=== PATIENT | female | born 1950 | race Caucasian/White ===

== ENCOUNTER → 2018-08-29 | Outpatient (CLI) | payer MEDICARE ==
--- NOTE | 2018-08-29 15:42 | MR ---
EXAMINATION TYPE: MR brain wo con DATE OF EXAM: 08/29/2018 COMPARISON: NONE HISTORY: Abnormality of gait / Memory loss TECHNIQUE: Multiplanar, multisequence images of the brain and brainstem is performed without intravenous contras t.. FINDINGS: Diffusion weighted images demonstrate no evidence of a recent infarct or other diffusion ab normality. Although there is diffusely symmetric sulcal prominence the degree of ventricular promine nce is slightly advanced in relation to the degree of sulcal prominence/cerebral atrophy. The cerebra l aqueduct, third ventricle, and fourth ventricle are widely patent. Evaluation for transependymal ed mt is limited as there is T2 hyperintense periventricular white matter change. Other scattered areas of T2/FLAIR hyperintensity are seen within the subcortical white matter overall mild burden given th e patient's age. There is no extra-axial fluid collection or significant white matter signal abnormal ity. The ventricular system and cisternal spaces are normal in size and appearance. The brain volum e is age appropriate. Midline structures demonstrate normal morphology. The craniocervical junction appears within normal limits. Susceptibility artifact is seen of the teeth possibly from dental fillings limiting evaluatio n of the adjacent structures. Scant mucosal thickening is seen within the ethmoid sinuses. Remaining visualized paranasal sinuses and mastoid air cells are well aerated. The dural venous sinuses appear patent. The globes are intact. IMPRESSION: 1. Ventricular dilatation slightly advanced in comparison to the degree of sulcal prominence and cere bral atrophy. Therefore consideration for normal pressure hydrocephalus or nonobstructing hydrocephal us should be given. 2. Mild burden nonspecific white matter change, likely on the basis of chronic microangiopathy. 3. No evidence of acute territorial infarct.
== END | disposition home or self-care (01) ==
LOC: RADMRIMAIN 13:24
PROVIDERS: ATTEND Psychiatry & Neurology Neurology
DX: G31.9 Degenerative disease of nervous system, unspecified (principal); R90.89 Other abnormal findings on diagnostic imaging of central nervous system; Z88.0 Allergy status to penicillin
CPT/HCPCS: 70551

== ENCOUNTER → 2018-09-04 | Outpatient (CLI) | payer MEDICARE ==
--- NOTE | 2018-09-04 15:04 | MR ---
EXAMINATION TYPE: MR lumbar spine wo con DATE OF EXAM: 09/04/2018 COMPARISON: None HISTORY: Low back pain and abnormal gait TECHNIQUE: Multiplanar, multisequence images of the lumbar spine were acquired. FINDINGS: There is an S-shaped scoliotic curvature of the thoracolumbar spine on the localizer images . The vertebral body heights are maintained however there is grade 1 anterolisthesis of L4 on L5 and L5 on S1. There is a diffusely heterogenous bone marrow signal throughout well-circumscribed T1/T2 hy perintense vertebral body hemangioma seen of L2. Modic type II endplate changes are noted of the uppe r and lower lumbar spine. Conus medullaris is unremarkable terminating at L1-L2. T12-L1: There is a small central disc herniation superimposed upon a broad-based disc bulge with liga mentum flavum buckling on the left and mild facet arthropathy creating moderate left neural foraminal narrowing. Right neural foramen and subsequently visualize given the rotatory scoliosis but appears grossly patent. No spinal canal stenosis. L1-L2: There is a bilobed broad-based disc bulge that in combination with facet arthropathy creates m oderate bilateral neural foraminal narrowing. No spinal canal stenosis. L2-L3: There is extensive facet arthropathy narrowing and ligamentum flavum buckling narrowing the sp inal canal. There is also a broad-based disc bulge. Overall there is mild bilateral neural foraminal narrowing and mild spinal canal stenosis. L3-L4: There is a large broad-based disc bulge and right lateral disc herniation creating moderate to severe right neural foraminal narrowing and moderate left neural foraminal narrowing. Extensive face t arthropathy and ligamentum flavum buckling create mild spinal canal stenosis. L4-L5: There is a broad-based disc bulge and facet arthropathy as well as disc uncovering creating mi ld bilateral neural foraminal narrowing and mild spinal canal stenosis. L5-S1: There is a broad-based disc bulge, disc uncovering and a small central disc herniation/protrus ion. Facet arthropathy is also seen resulting in mild left neural foraminal narrowing and moderate to severe right neural foraminal narrowing as well as mild spinal canal stenosis. IMPRESSION: 1. Rotatory S-shaped scoliotic curvature of the thoracolumbar spine making accurate evaluation of the neural foramen difficult, however there is multilevel neural foraminal narrowing as described above most severe at L5-S1 on the right with impingement of the exiting L5 nerve root. 2. Right lateral disc herniation at L3-L4 creating moderate to severe right neural foraminal narrowin g. 3. Small central disc herniation at L5-S1 creating mild spinal canal stenosis. 4. Extensive multilevel degenerative disc disease creating multiple levels of spinal canal stenosis f rom L2 through S1, mild in degree. 5. Diffusely heterogenous bone marrow signal. Correlate with CBC to assess for anemia or myeloprolife rative disorders.
== END | disposition home or self-care (01) ==
LOC: RADMRIMAIN 13:25
PROVIDERS: ATTEND Psychiatry & Neurology Neurology
DX: M99.73 Connective tissue and disc stenosis of intervertebral foramina of lumbar region (principal); M99.74 Connective tissue and disc stenosis of intervertebral foramina of sacral region; M48.061 Spinal stenosis, lumbar region without neurogenic claudication; M48.07 Spinal stenosis, lumbosacral region; M51.27 Other intervertebral disc displacement, lumbosacral region; M51.26 Other intervertebral disc displacement, lumbar region; M51.36 Other intervertebral disc degeneration, lumbar region; M41.85 Other forms of scoliosis, thoracolumbar region; Z88.0 Allergy status to penicillin
CPT/HCPCS: 72148

== ENCOUNTER → 2018-09-24 | Outpatient (CLI) | payer MEDICARE ==
[2018-09-24 12:06] LABS: Basophils % (A) 1 %; Eosinophils # (A) 0.2 k/uL (0-0.7); Eosinophils % (A) 4 %; HCT 41.7 % (34.0-46.0); Lymphocytes % (A) 19 %; MCH 29.4 pg (25.0-35.0); MCHC 31.2 g/dL (31.0-37.0); MCV 94.1 fL (80.0-100.0); Mean Platelet Volume 7.1; Monocytes # (A) 0.3 k/uL (0-1.0); Monocytes % (A) 5 %; Neutrophils # (A) 3.7 k/uL (1.3-7.7); Neutrophils % (A) 69 %; Platelet Count 284 k/uL (150-450); RBC 4.43 m/uL (3.80-5.40); RDW 13.2 % (11.5-15.5); WBC 5.4 k/uL (3.8-10.6)
== END ==
LOC: LABWHC1 10:50
PROVIDERS: ATTEND Nurse Practitioner Acute Care
DX: Z51.81 Encounter for therapeutic drug level monitoring (principal)
CPT/HCPCS: 36415; 85025

== ENCOUNTER 2019-02-26 07:26 | Observation (INO) | payer MEDICARE ==
--- NOTE | 2019-02-26 07:47 | ED ---
General Adult HPI - General Stated complaint: Chest pain Time Seen by Provider: 02/26/19 07:29 Source: patient, EMS, RN notes reviewed, old records reviewed Mode of arrival: EMS Limitations: no limitations - History of Present Illness Initial comments: 68-year-old female history of CAD status post 5 vessel bypass approximately 15 years ago presents for evaluation of chest pain. Patient is brought in by EMS approximately 2 and half hours after the onset of her pain. She was noted to be bradycardic in the 40s according to EMS. This was recorded as sinus bradycardia, she was given 0.5 mg atropine and had taken nitroglycerin and aspirin at home prior to arrival. Her symptoms are resolved at the time my evaluation. She has no residual chest pain. No dysuria. She denies any diaphoresis, dyspnea or radiating pain associated with her central chest pain. Patient has no history of recurrent chest pain status post bypass. - Related Data Allergies Allergy/AdvReac Type Severity Reaction Status Date / Time hydromorphone [From Dilaudid] Allergy Anaphylaxis Verified 02/26/19 07:51 Review of Systems ROS Statement: Those systems with pertinent positive or pertinent negative responses have been documented in the HPI. ROS Other: All systems not noted in ROS Statement are negative. Past Medical History Past Medical History: Chest Pain / Angina, Myocardial Infarction ([place]) History of Any Multi-Drug Resistant Organisms: None Reported Past Surgical History: Coronary Bypass/CABG Past Psychological History: No Psychological Hx Reported Smoking Status: Never smoker Past Alcohol Use History: None Reported Past Drug Use History: None Reported General Exam Limitations: no limitations General appearance: alert, in no apparent distress Head exam: Present: atraumatic, normocephalic Eye exam: Present: normal appearance, PERRL ENT exam: Present: normal exam Neck exam: Present: normal inspection. Absent: tenderness, meningismus Respiratory exam: Present: normal lung sounds bilaterally. Absent: respiratory distress, wheezes Cardiovascular Exam: Present: regular rate, normal rhythm, systolic murmur GI/Abdominal exam: Present: soft. Absent: distended, tenderness, guarding Extremities exam: Present: normal inspection, normal capillary refill. Absent: pedal edema, calf tenderness Neurological exam: Present: alert, oriented X3, CN II-XII intact. Absent: motor sensory deficit Psychiatric exam: Present: normal affect, normal mood Skin exam: Present: warm, dry, intact. 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 She does remain bradycardic, this is sinus bradycardia rate 45-48. EKG Findings - EKG Comments: EKG Findings:: EKG: Sinus bradycardia, no ST segment elevation, rate of 52, FL interval 178, QRS duration 78, QTC 470 Medical Decision Making - Medical Decision Making 68-year-old female presenting with an episode of chest pain. This was resolved with nitroglycerin given by EMS as well as atropine given by EMS. Laboratory studies reveal normal CBC, normal CMP, initial troponin is negative. Chest x-ray negative for acute cardiopulmonary disease. Patient will be admitted for telemetry, serial troponins, cardiology consultation. Metoprolol will be held at this time secondary to bradycardia. Patient chest pain-free while in the emergency department. Diagnosis: Chest pain, bradycardia - Lab Data Result diagrams: 02/26/19 07:36 02/26/19 07:36 Lab Results 02/26/19 02/26/19 02/26/19 Range/Units 07:36 07:36 07:36 WBC 3.8 (3.8-10.6) k/uL RBC 4.30 (3.80-5.40) m/uL Hgb 12.4 (11.4-16.0) gm/dL Hct 38.1 (34.0-46.0) % MCV 88.6 (80.0-100.0) fL MCH 28.9 (25.0-35.0) pg MCHC 32.7 (31.0-37.0) g/dL RDW 14.3 (11.5-15.5) % Plt Count 154 (150-450) k/uL Neutrophils % 46 % Lymphocytes % 38 % Monocytes % 7 % Eosinophils % 6 % Basophils % 1 % Neutrophils # 1.7 (1.3-7.7) k/uL Lymphocytes # 1.4 (1.0-4.8) k/uL Monocytes # 0.3 (0-1.0) k/uL Eosinophils # 0.2 (0-0.7) k/uL Basophils # 0.0 (0-0.2) k/uL PT 9.8 (9.0-12.0) sec INR 0.9 (<1.2) APTT 23.1 (22.0-30.0) sec Sodium 140 (137-145) mmol/L Potassium 4.6 (3.5-5.1) mmol/L Chloride 108 H (98-107) mmol/L Carbon Dioxide 28 (22-30) mmol/L Anion Gap 4 mmol/L BUN 19 H (7-17) mg/dL Creatinine 1.11 H (0.52-1.04) mg/dL Est GFR (CKD-EPI)AfAm 58 (>60 ml/min/1.73 sqM) Est GFR (CKD-EPI)NonAf 51 (>60 ml/min/1.73 sqM) Glucose 84 (74-99) mg/dL Calcium 8.8 (8.4-10.2) mg/dL Magnesium 2.0 (1.6-2.3) mg/dL Total Bilirubin 0.8 (0.2-1.3) mg/dL AST 41 H (14-36) U/L ALT 54 H (9-52) U/L Alkaline Phosphatase 53 (38-126) U/L Troponin I (0.000-0.034) ng/mL Total Protein 5.4 L (6.3-8.2) g/dL Albumin 3.2 L (3.5-5.0) g/dL 02/26/19 Range/Units 07:36 WBC (3.8-10.6) k/uL RBC (3.80-5.40) m/uL Hgb (11.4-16.0) gm/dL Hct (34.0-46.0) % MCV (80.0-100.0) fL MCH (25.0-35.0) pg MCHC (31.0-37.0) g/dL RDW (11.5-15.5) % Plt Count (150-450) k/uL Neutrophils % % Lymphocytes % % Monocytes % % Eosinophils % % Basophils % % Neutrophils # (1.3-7.7) k/uL Lymphocytes # (1.0-4.8) k/uL Monocytes # (0-1.0) k/uL Eosinophils # (0-0.7) k/uL Basophils # (0-0.2) k/uL PT (9.0-12.0) sec INR (<1.2) APTT (22.0-30.0) sec Sodium (137-145) mmol/L Potassium (3.5-5.1) mmol/L Chloride (98-107) mmol/L Carbon Dioxide (22-30) mmol/L Anion Gap mmol/L BUN (7-17) mg/dL Creatinine (0.52-1.04) mg/dL Est GFR (CKD-EPI)AfAm (>60 ml/min/1.73 sqM) Est GFR (CKD-EPI)NonAf (>60 ml/min/1.73 sqM) Glucose (74-99) mg/dL Calcium (8.4-10.2) mg/dL Magnesium (1.6-2.3) mg/dL Total Bilirubin (0.2-1.3) mg/dL AST (14-36) U/L ALT (9-52) U/L Alkaline Phosphatase (38-126) U/L Troponin I <0.012 (0.000-0.034) ng/mL Total Protein (6.3-8.2) g/dL Albumin (3.5-5.0) g/dL Disposition Clinical Impression: Chest pain, Bradycardia Disposition: ADMITTED IP TO THIS [facility] Condition: Stable Is patient prescribed a controlled substance at d/c from ED?: No Referrals: Tomás Preciado MD [Primary Care Provider] - 1-2 days Decision to Admit Reason: Admit from EC Decision Date: 02/26/19 Decision Time: 09:02
[2019-02-26 07:55] LABS: Basophils % (A) 1 %; Eosinophils # (A) 0.2 k/uL (0-0.7); Eosinophils % (A) 6 %; HCT 38.1 % (34.0-46.0); HGB 12.4 gm/dL (11.4-16.0); Lymphocytes # (A) 1.4 k/uL (1.0-4.8); Lymphocytes % (A) 38 %; MCH 28.9 pg (25.0-35.0); MCHC 32.7 g/dL (31.0-37.0); MCV 88.6 fL (80.0-100.0); Mean Platelet Volume 7.9; Monocytes # (A) 0.3 k/uL (0-1.0); Monocytes % (A) 7 %; Neutrophils # (A) 1.7 k/uL (1.3-7.7); Neutrophils % (A) 46 %; Platelet Count 154 k/uL (150-450); RDW 14.3 % (11.5-15.5); WBC 3.8 k/uL (3.8-10.6)
[2019-02-26 08:04] LABS: Albumin 3.2 g/dL (3.5-5.0); Calcium 8.8 mg/dL (8.4-10.2); Potassium 4.6 mmol/L (3.5-5.1); Total Bilirubin 0.8 mg/dL (0.2-1.3); Total Protein 5.4 g/dL (6.3-8.2)
[2019-02-26 08:06] LABS: INR 0.9 (<1.2); Partial Thromboplastin Time 23.1 sec (22.0-30.0); Prothrombin Time 9.8 sec (9.0-12.0)
--- NOTE | 2019-02-26 08:07 | XR ---
EXAMINATION TYPE: XR chest 2V DATE OF EXAM: 02/26/2019 COMPARISON: Chest x-ray June 16, 2011. HISTORY: Chest pain. TECHNIQUE: Frontal and lateral views of the chest are obtained. FINDINGS: Overlying EKG leads are seen. Post CABG changes with mediastinal clips and sternal wires is redemonstrated. There is chronic parenchymal change without suspicious focal air space opacity, ple ural effusion, or pneumothorax seen. The cardiac silhouette size is mildly enlarged on current study . Underlying scoliosis is present centered in the lumbar spine. IMPRESSION: Chronic parenchymal changes and cardiomegaly without acute pulmonary process.
[2019-02-26] MEDS ORDERED: ACETAMINOPHEN TAB 325 MG TAB PO PRN (08:56)
[2019-02-26] MEDS ORDERED: NALOXONE 0.4 MG/ML 1 ML VIAL IV PRN (08:56)
[2019-02-26] MEDS: SODIUM CHLORIDE 0.9% 1,000 ML IV SCH ×2 (09:07→20:54)
[2019-02-26] MEDS: ASPIRIN 325 MG TAB PO SCH (09:07)
--- NOTE | 2019-02-26 15:54 | P.CRDCN ---
History of Present Illness History of present illness: This is a 68-year-old female past medical history significant for coronary artery disease status post 5-vessel bypass grafting, hypertension and dyslipidemia. She follows in the office with Dr. Dickinson. We have been asked to see her in consultation for symptoms of chest pain. She states she woke up around 5 AM this morning with a heavy sharp pain in the left precordial region. This occurred while she was laying in bed. She got up and took one sublingual nitroglycerin which did decrease the intensity of the chest discomfort however shortly thereafter about 10 minutes after taking the first one the pain started coming back. She decided to call EMS and come in for further evaluation. EMS found her to have for profound bradycardia with a heart rate of 41 per the patient. She was given 0.5 mg of atropine. The EMS reports and telemetry tracings are not in the patient's chart currently unavailable. She is seen and examined resting comfortably in bed in no acute distress. Her chest discomfort has subsided. EKG reveals sinus bradycardia heart rate of 50 to with nonspecific T-wave flattening in the lateral leads. Chest x-ray reveals chronic parenchymal changes without any acute cardiopulmonary process. Laboratory data reviewed, WBC 3.8, hemoglobin 12.4, platelets 154, sodium 140, potassium 4.6, creatinine 1.11 with a GFR 51, magnesium 2.0, AST 41, ALT 54, car diac enzymes negative 2. Current cardiac medications include atorvastatin 80 mg daily, Lopressor 25 mg twice a day, losartan 50 mg daily. Most recent stress test performed in the office February 2017 with a Lexiscan stress test was negative for reversible cardiac ischemia. Most recent echocardiogram obtained in the office 2012 reveals preserved left ventricular systolic function with ejection fraction 55%, mild mitral regurgitation and mild pulmonary hypertension. At the time of my exam: CONSTITUTIONAL: Denies fever. Denies chills. EYES: Denies blurred vision. Denies vision changes. Denies eye pain. EARS, NOSE, MOUTH & THROAT: Denies headache. Denies sore throat. Denies ear pain. CARDIOVASCULAR: Denies chest pain. Denies shortness of breath. Denies orthopnea. Denies PND. Denies palpitations. RESPIRATORY: Denies cough. GASTROINTESTINAL: Denies abdominal pain. Denies diarrhea. Denies constipation. Denies nausea. Denies vomiting. MUSCULOSKELETAL: Denies myalgias. INTEGUMENTARY: Denies pruitis. Denies rash. NEUROLOGIC: Denies numbness. Denies tingling. Denies weakness. PSYCHIATRIC: Denies anxiety. Denies depression. ENDOCRINE: Denies fatigue. Denies weight change. Denies polydipsia. Denies polyurina. GENITOURINARY: Denies burning, hematuria or urgency with micturation. HEMATOLOGIC: Denies history of anemia. Denies bleeding. Blood pressure 150/72 heart rates 52 afebrile maintaining oxygen saturation on room air GENERAL: This is a 68-year-old female in no apparent distress at the time of my examination. HEENT: Head is atraumatic, normocephalic. Pupils are equal, round. Sclerae anicteric. Conjunctivae are clear. Mucous membranes of the mouth are moist. Neck is supple. There is no jugular venous distention. No carotid bruit is heard. LUNGS: Clear to auscultation no wheezes, rales or rhonchi. No chest wall tenderness is noted on palpation or with deep breathing. HEART: Regular rate and rhythm with systolic ejection murmur at the base, no rubs or gallops. S1 and S2 heard. ABDOMEN: Soft, nontender. Bowel sounds are heard. No organomegaly noted. EXTREMITIES: No evidence of peripheral edema and no calf tenderness noted. VASCULAR: Radial and dorsalis pedis pulses palpated, no evidence of clubbing. NEUROLOGIC: Patient is awake, alert and oriented x3. ASSESSMENT Bradycardia per EMS Chest pain History of coronary artery disease status post 5 vessel bypass grafting 15 years ago Hypertension Dyslipidemia PLAN Request records of EMS of bradycardia. Obtain 2D echocardiogram and doppler study to assess cardiac structure and function. Check TSH. Hold lopressor and continue telemetry monitoring for ongoing bradycardia. Continue to obtain serial cardiac enzymes to rule out an acute event. NPO after midnight for further cardiac testing. Further recommendations to follow. Thank you kindly for this consultation. Nurse Practitioner note has been reviewed, I agree with a documented findings and plan of care. Patient was seen and examined. Past Medical History Past Medical History: Chest Pain / Angina, Hyperlipidemia, Hypertension, Myocardial Infarction ([place]), Sleep Apnea/CPAP/BIPAP, Thyroid Disorder Additional Past Medical History / Comment(s): Short-term memory loss Last Myocardial Infarction Date:: 2014 History of Any Multi-Drug Resistant Organisms: None Reported Past Surgical History: Coronary Bypass/CABG Additional Past Surgical History / Comment(s): Coronary artery bypass graft 5 vessel 15 years ago, less knee arthroscopically, right shoulder surgery, sleep apnea surgery, hysterectomy for dysfunctional uterine bleeding. Past Anesthesia/Blood Transfusion Reactions: No Reported Reaction Past Psychological History: No Psychological Hx Reported Smoking Status: Never smoker Past Alcohol Use History: None Reported Additional Past Alcohol Use History / Comment(s): The patient is a lifelong nonsmoker. No marijuana, street drug or alcohol use. Patient was at home with her . She does not use walker or cane. No nebulizer oxygen or CPAP. Patient was on CPAP many years ago. Past Drug Use History: None Reported - Past Family History Father Additional Family Medical History / Comment(s): Father at age 80 with history of rectal cancer and coronary artery disease. Mother Additional Family Medical History / Comment(s): Mother at age 71 from scleroderma. Brother(s) Additional Family Medical History / Comment(s): Patient has 2 brothers. One at age 61 from a myocardial infarction. One is alive with no major medical problems. Medications and Allergies Home Medications Medication Instructions Recorded Confirmed Type Atorvastatin [Lipitor] 80 mg PO DAILY 02/26/19 02/26/19 History Donepezil [Aricept] 10 mg PO HS 02/26/19 02/26/19 History Escitalopram [Lexapro] 20 mg PO BID 02/26/19 02/26/19 History Famotidine [Pepcid] 20 mg PO BID 02/26/19 02/26/19 History Levothyroxine Sodium [Synthroid] 75 mcg PO DAILY 02/26/19 02/26/19 History Losartan Potassium [Cozaar] 50 mg PO DAILY 02/26/19 02/26/19 History Metoprolol Tartrate [Lopressor] 25 mg PO BID 02/26/19 02/26/19 History Nitroglycerin Sl Tabs [Nitrostat] 0.4 mg SUBLINGUAL Q5M PRN 02/26/19 02/26/19 History buPROPion HCL [Wellbutrin XL] 300 mg PO DAILY 02/26/19 02/26/19 History busPIRone HCL 15 mg PO TID 02/26/19 02/26/19 History clonazePAM [KlonoPIN] 1 mg PO HS 02/26/19 02/26/19 History Allergies Allergy/AdvReac Type Severity Reaction Status Date / Time hydromorphone [From Dilaudid] Allergy Anaphylaxis Verified 02/26/19 09:05 Physical Exam Vitals: Vital Signs Temp Pulse Pulse Pulse Resp BP BP 02/26/19 11:59 97.4 F L 52 L 16 150/72 02/26/19 11:30 47 L 16 140/66 02/26/19 11:00 49 L 18 129/69 02/26/19 10:30 47 L 19 146/79 02/26/19 10:00 53 L 16 123/72 02/26/19 09:30 49 L 16 02/26/19 09:20 49 L 13 02/26/19 09:10 46 L 15 02/26/19 09:00 49 L 16 02/26/19 08:50 53 L 16 02/26/19 08:10 48 L 20 02/26/19 07:38 53 L 02/26/19 07:28 97.6 F 53 L 16 164/71 Pulse Ox 02/26/19 11:59 99 02/26/19 11:30 96 02/26/19 11:00 97 02/26/19 10:30 97 02/26/19 10:00 97 02/26/19 09:30 96 02/26/19 09:20 98 02/26/19 09:10 97 02/26/19 09:00 98 02/26/19 08:50 93 L 02/26/19 08:10 99 02/26/19 07:38 02/26/19 07:28 96 Intake and Output 02/25/19 02/26/19 02/26/19 22:59 06:59 14:59 Intake Total 236 Balance 236 Intake: Oral 236 Other: Voiding Method Toilet Weight 52.617 kg Results 02/26/19 07:36 02/26/19 07:36 Cardiac Enzymes 02/26/19 02/26/19 02/26/19 Range/Units 07:36 07:36 13:11 AST 41 H (14-36) U/L Troponin I <0.012 <0.012 (0.000-0.034) ng/mL Coagulation 02/26/19 Range/Units 07:36 PT 9.8 (9.0-12.0) sec APTT 23.1 (22.0-30.0) sec CBC 02/26/19 Range/Units 07:36 WBC 3.8 (3.8-10.6) k/uL RBC 4.30 (3.80-5.40) m/uL Hgb 12.4 (11.4-16.0) gm/dL Hct 38.1 (34.0-46.0) % Plt Count 154 (150-450) k/uL Comprehensive Metabolic Panel 02/26/19 Range/Units 07:36 Sodium 140 (137-145) mmol/L Potassium 4.6 (3.5-5.1) mmol/L Chloride 108 H (98-107) mmol/L Carbon Dioxide 28 (22-30) mmol/L BUN 19 H (7-17) mg/dL Creatinine 1.11 H (0.52-1.04) mg/dL Glucose 84 (74-99) mg/dL Calcium 8.8 (8.4-10.2) mg/dL AST 41 H (14-36) U/L ALT 54 H (9-52) U/L Alkaline Phosphatase 53 (38-126) U/L Total Protein 5.4 L (6.3-8.2) g/dL Albumin 3.2 L (3.5-5.0) g/dL Current Medications Generic Name Dose Route Start Last Admin Trade Name Freq PRN Reason Stop Dose Admin Acetaminophen 650 mg 02/26/19 08:56 Tylenol Tab PO Q6HR PRN Mild Pain or Fever > 100.5 Aspirin 325 mg 02/26/19 09:00 02/26/19 09:07 Aspirin PO Not Given DAILY STEVIE Sodium Chloride 1,000 mls @ 75 mls/hr 02/26/19 08:45 02/26/19 09:07 Saline 0.9% IV 75 mls/hr .[id number] STEVIE Administration Naloxone HCl 0.2 mg 02/26/19 08:56 Narcan IV Q2M PRN Opioid Reversal Intake and Output 02/25/19 02/26/19 02/26/19 22:59 06:59 14:59 Intake Total 236 Balance 236 Intake: Oral 236 Other: Voiding Method Toilet Weight 52.617 kg Patient Weight 02/27/19 06:59 Weight 52.617 kg 02/26/19 07:36 02/26/19 07:36
[2019-02-26] MEDS: LOSARTAN 50 MG TAB PO SCH (16:20)
[2019-02-26] MEDS: ATORVASTATIN 80 MG TAB PO SCH (16:20)
--- NOTE | 2019-02-26 19:18 | ECHOF ---
Referral Reason: MEASUREMENTS -------- HEIGHT: 149.9 cm WEIGHT: 52.6 kg BP: 150/72 RVIDd: 2.1 cm (< 3.3) IVSd: 0.9 cm (0.6 - 1.1) LVIDd: 3.5 cm (3.9 - 5.3) LVPWd: 0.9 cm (0.6 - 1.1) IVSs: 1.1 cm LVIDs: 2.4 cm LVPWs: 1.2 cm LAESV Index (A-L): 22.46 ml/m Ao Diam: 2.6 cm (2.0 - 3.7) AV Cusp: 1.1 cm (1.5 - 2.6) LA Diam: 3.4 cm (2.7 - 3.8) MV EXCURSION: 15.098 mm (> 18.000) MV EF SLOPE: 105 mm/s (70 - 150) EPSS: 0.2 cm MV E Roberto: 0.72 m/s MV DecT: 214 ms MV A Roberto: 0.64 m/s MV E/A Ratio: 1.13 RAP: 5.00 mmHg RVSP: 26.90 mmHg FINDINGS -------- Resting bradycardia (HR<60bpm). This was a technically adequate study. The left ventricular size is normal. Left ventricular wall thickness is normal. Overall left vent ricular systolic function is normal with, an EF between 55 - 60 %. The right ventricle is normal in size and function. Normal LA size by volume 22+/-6 ml/m2. The right atrium is normal in size. Aortic valve is trileaflet and is mildly thickened. There is no evidence of aortic regurgitation. There is no evidence of aortic stenosis. The mitral valve leaflets are mildly thickened. There is trace to mild mitral regurgitation. Trace tricuspid regurgitation present. Right ventricular systolic pressure is normal at < 35 mmHg. There is no evidence of pulmonary hypertension. Trace/mild (physiologic) pulmonic regurgitation. The aortic root size is normal. Normal inferior vena cava with normal inspiratory collapse consistent with estimated right atrial pre ssure of 5 mmHg. There is no pericardial effusion. CONCLUSIONS -------- 1. Resting bradycardia (HR<60bpm). 2. This was a technically adequate study. 3. The left ventricular size is normal. 4. Left ventricular wall thickness is normal. 5. Overall left ventricular systolic function is normal with, an EF between 55 - 60 %. 6. Normal LA size by volume 22+/-6 ml/m2. 7. Aortic valve is trileaflet and is mildly thickened. 8. The mitral valve leaflets are mildly thickened. 9. There is trace to mild mitral regurgitation. 10. Trace tricuspid regurgitation present. 11. Right ventricular systolic pressure is normal at < 35 mmHg. 12. There is no evidence of pulmonary hypertension. 13. Trace/mild (physiologic) pulmonic regurgitation. 14. The aortic root size is normal. 15. There is no pericardial effusion. [employer] ENGINEER: Kevin Carrillo RDCS
[2019-02-27] MEDS ORDERED: CAFFEINE CITRATE 60 MG/3 ML VIAL IV PRN (07:54)
[2019-02-27] MEDS ORDERED: AMINOPHYLLINE 500 MG/20 ML VIAL IV PRN (07:54)
[2019-02-27] MEDS ORDERED: REGADENOSON 0.4 MG/5 ML SYRINGE IV ONE (07:54)
[2019-02-27] MEDS ORDERED: DIPYRIDAMOLE IV ONE (08:00)
[2019-02-27] MEDS ORDERED: SODIUM CHLORIDE 0.9% IV ONE (08:00)
--- NOTE | 2019-02-27 11:02 | P.STRESS ---
- Stress Test Note Stress Test Results/Findings: Exam Performed: NM stress persantine cardiolite Exam Date: 02/27/19 Reason for Exam: CP Height: 4 ft 11 in Weight: 52.617 kg Protocol: PERSANTINE CARDIOLITE STRESS Stage: NA Duration of Exercise: NA Resting Heart Rate: 64 Resting Blood Pressure: 156/82 Maximum Achieved Heart Rate: 75 Maximum Achieved Blood Pressure: 162/66 85% PMHR: NA 100% PMHR: NA METS: NA Technologist Comment: Stress Test Results/Findings: This is a 68-year-old female with history of hypertension, family history of isc hemic heart disease being evaluated for symptoms of chest pain. Patient also has history of previous bypass surgery. Stress data: Baseline EKG showed sinus rhythm with normal DE interval and QRS duration. Blood pressure at rest is 156/82 with pulse rate of 64. A standard dose of Persantine was infused. EKGs taken during and after infusion did not reveal any significant changes from baseline. Final impression #1. Negative Lexiscan stress test #2 ,Report on the nuclear images to be given by the radiologist
[2019-02-27] MEDS: LOSARTAN 50 MG TAB PO SCH (11:19)
[2019-02-27] MEDS: ATORVASTATIN 80 MG TAB PO SCH (11:19)
[2019-02-27] MEDS: ASPIRIN 325 MG TAB PO SCH (11:19)
[2019-02-27 11:54] VITALS: BP 165/77; PULSE 58; RESP 18; TEMP 98.3
--- NOTE | 2019-02-27 12:01 | P.HPIM ---
History of Present Illness H&P Date: 02/26/19 Chief Complaint: Chest pain This is a 68-year-old female patient of Dr. Heriberto Preciado and Dr. Dickinson with past medical history of myocardial infarction with CABG 5 vessels 15 years ago, hypothyroidism, hypertension, hyperlipidemia, short-term memory loss, depression. Patient states that she had chest pain develop at 5 AM this morning on the left side of her chest that went over to the right side. She denies any lightheadedness, dizziness, cough, sweats, nausea or vomiting. She states she took one nitroglycerin at home but did not make any difference and she took a second one that did help. At the time of this evaluation, chest pain is completely resolved. She is complaining of feeling tired. CBC was within normal limits. BUN 19 and creatinine 1.11. Troponin negative. Patient will be placed on observation unit and consult consult with cardiology. Review of Systems All systems: negative Constitutional: Reports fatigue, Denies anorexia, Denies chills, Denies fever, Denies lethargy, Denies malaise, Denies poor appetite, Denies weakness Eyes: denies blurred vision, denies pain Ears, nose, mouth and throat: Denies dysphagia, Denies headache, Denies mouth pain, Denies nasal congestion, Denies nasal discharge, Denies sore throat, D enies vertigo Cardiovascular: Reports chest pain, Denies decreased exercise tolerance, Denies dyspnea on exertion, Denies edema, Denies leg edema, Denies lightheadedness, Denies palpitations, Denies shortness of breath, Denies syncope Respiratory: Denies cough, Denies cough with sputum, Denies dyspnea, Denies excessive sputum, Denies hemoptysis, Denies home oxygen, Denies wheezing Gastrointestinal: Denies abdominal pain, Denies diarrhea, Denies loss of appetite, Denies nausea, Denies vomiting Genitourinary: Denies dysuria, Denies hematuria, Denies urgency, Denies urinary frequency Musculoskeletal: Denies frequent falls, Denies gait dysfunction, Denies muscle weakness, Denies myalgias Integumentary: Denies pruritus, Denies rash, Denies wounds Neurological: Reports memory loss, Denies numbness, Denies vertigo, Denies weakness Psychiatric: Denies anxiety, Denies depression Endocrine: Denies fatigue, Denies weight change Past Medical History Past Medical History: Chest Pain / Angina, Hyperlipidemia, Hypertension, Myocardial Infarction ([place]), Sleep Apnea/CPAP/BIPAP, Thyroid Disorder Additional Past Medical History / Comment(s): Short-term memory loss History of Any Multi-Drug Resistant Organisms: None Reported Past Surgical History: Coronary Bypass/CABG Additional Past Surgical History / Comment(s): Coronary artery bypass graft 5 vessel 15 years ago, less knee arthroscopically, right shoulder surgery, sleep apnea surgery, hysterectomy for dysfunctional uterine bleeding. Past Psychological History: No Psychological Hx Reported Smoking Status: Never smoker Past Alcohol Use History: None Reported Additional Past Alcohol Use History / Comment(s): The patient is a lifelong nonsmoker. No marijuana, street drug or alcohol use. Patient was at home with her . She does not use walker or cane. No nebulizer oxygen or CPAP. Patient was on CPAP many years ago. Past Drug Use History: None Reported - Past Family History Father Additional Family Medical History / Comment(s): Father at age 80 with history of rectal cancer and coronary artery disease. Mother Additional Family Medical History / Comment(s): Mother at age 71 from scleroderma. Brother(s) Additional Family Medical History / Comment(s): Patient has 2 brothers. One at age 61 from a myocardial infarction. One is alive with no major medical problems. Medications and Allergies Home Medications Medication Instructions Recorded Confirmed Type Atorvastatin [Lipitor] 80 mg PO DAILY 02/26/19 02/26/19 History Donepezil [Aricept] 10 mg PO HS 02/26/19 02/26/19 History Escitalopram [Lexapro] 20 mg PO BID 02/26/19 02/26/19 History Famotidine [Pepcid] 20 mg PO BID 02/26/19 02/26/19 History Levothyroxine Sodium [Synthroid] 75 mcg PO DAILY 02/26/19 02/26/19 History Losartan Potassium [Cozaar] 50 mg PO DAILY 02/26/19 02/26/19 History Metoprolol Tartrate [Lopressor] 25 mg PO BID 02/26/19 02/26/19 History Nitroglycerin Sl Tabs [Nitrostat] 0.4 mg SUBLINGUAL Q5M PRN 02/26/19 02/26/19 History buPROPion HCL [Wellbutrin XL] 300 mg PO DAILY 02/26/19 02/26/19 History busPIRone HCL 15 mg PO TID 02/26/19 02/26/19 History clonazePAM [KlonoPIN] 1 mg PO HS 02/26/19 02/26/19 History Allergies Allergy/AdvReac Type Severity Reaction Status Date / Time hydromorphone [From Dilaudid] Allergy Anaphylaxis Verified 02/26/19 09:05 Physical Exam Vitals: Vital Signs Temp Pulse Pulse Resp BP Pulse Ox 02/26/19 09:30 49 L 16 96 02/26/19 09:20 49 L 13 98 02/26/19 09:10 46 L 15 97 02/26/19 09:00 49 L 16 98 02/26/19 08:50 53 L 16 93 L 02/26/19 08:10 48 L 20 99 02/26/19 07:38 53 L 02/26/19 07:28 97.6 F 53 L 16 164/71 96 Intake and Output 02/25/19 02/26/19 02/26/19 22:59 06:59 14:59 Other: Weight 52.617 kg Gen: This is a 68-year-old female. She is resting in the ER stretcher and appears to be comfortable and in no acute distress. HEENT: Head is atraumatic, normocephalic. Pupils equal, round. Sclerae is anicteric. NECK: Supple. No JVD. No lymphadenopathy. No thyromegaly. LUNGS: Clear to auscultation. No wheezes or rhonchi. No intercostal retractions. HEART: Regular rate and rhythm. Systolic murmur. ABDOMEN: Soft. Bowel sounds are present. No masses. No tenderness. EXTREMITIES: No pedal edema. No calf tenderness. Dorsalis pedis +2 bilaterally. NEUROLOGICAL: Patient is awake, alert and oriented x3. Cranial nerves 2 through 12 are grossly intact. Noted short-term memory deficits. Results CBC & Chem 7: 02/26/19 07:36 02/26/19 07:36 Labs: Abnormal Lab Results - Last 24 Hours (Table) 02/26/19 Range/Units 07:36 Chloride 108 H (98-107) mmol/L BUN 19 H (7-17) mg/dL Creatinine 1.11 H (0.52-1.04) mg/dL AST 41 H (14-36) U/L ALT 54 H (9-52) U/L Total Protein 5.4 L (6.3-8.2) g/dL Albumin 3.2 L (3.5-5.0) g/dL Assessment and Plan Plan: 1. Chest pain. Patient placed in the observation unit. Cardiology consult. Serial troponins. 2. History of coronary artery disease with five-vessel CABG. Continue aspirin, Lipitor, losartan, Lipitor 80 mg daily. 3. Hypertension. Continue losartan 50 mg daily, Lopressor 25 mg twice daily. 4. Hyperlipidemia. Continue Lipitor. 5. Hypothyroidism. Continue levothyroxine 75 g daily. 6. Short-term memory deficit. Continue Aricept 10 mg at bedtime. 7. Recurrent depression and generalized anxiety disorder. Continue Lexapro 20 mg twice daily, clonazepam 1 mg at bedtime, Wellbutrin 300 mg daily. 8. DVT prophylaxis. Early ambulation. Patient will be placed on the observation unit. Discharge plan: Return home Impression and plan of care have been directed as dictated by the signing phys ician. Izzy Rossi nurse practitioner acting as scribe for signing physician.
--- NOTE | 2019-02-27 12:16 | NM ---
EXAMINATION TYPE: NM stress persantine cardiolit DATE OF EXAM: 02/27/2019 COMPARISON: NONE HISTORY: Chest pain TECHNIQUE: After the intravenous administration of 9.63 mCi Tc 99m Sestamibi - Cardiolite resting SP ECT images acquired 45 minutes post injection. The patient received 30 mg Persantine, 25.9 mCi Tc 99m Sestamibi - Stress images obtained 30 minutes post injection FINDINGS: Review of stress and rest SPECT images demonstrates small area of reversibility involving the septum which likely is artifactual but should be correlated clinically. Gated analysis shows normal wall mo tion with an estimated left ventricular ejection fraction of 67 %. IMPRESSION: 1. There is a small area of stress-induced reversibility involving the septum which likely is artifac tual but should be correlated clinically to exclude stress-induced ischemia.
--- NOTE | 2019-02-27 14:32 | P.DS ---
Providers Date of admission: 02/26/19 08:56 Expected date of discharge: 02/27/19 Attending physician: Cielo Elizabeth Consults: 02/26/19 08:57 Consult Physician Routine Consulting Provider: Santiago Dickinson Consult Reason/Comments: CP, bradycardic Do you want consulting provider notified?: Yes Primary care physician: [facility] Course: This is a 68-year-old female patient of Dr. Heriberto Preciado and Dr. Dickinson with past medical history of myocardial infarction with CABG 5 vessels 15 years ago, hypothyroidism, hypertension, hyperlipidemia, short-term memory loss, depression. Patient states that she had chest pain develop at 5 AM this morning on the left side of her chest that went over to the right side. She denies any lightheadedness, dizziness, cough, sweats, nausea or vomiting. She states she took one nitroglycerin at home but did not make any difference and she took a second one that did help. At the time of this evaluation, chest pain is compl etely resolved. She is complaining of feeling tired. CBC was within normal limits. BUN 19 and creatinine 1.11. Troponin negative. Patient will be placed on observation unit and consult consult with cardiology. 02/26: patient has been seen by cardiology. Persantine stress test was done today. Nuclear portion found a small area of stress-induced reversibility involving the septum which likely is artifactual but should be correlated clinically to exclude stress-induced ischemia. Dr. Maki recommends following up in the office with Dr. Esquivel to further evaluate this. Patient will be discharged home today in stable condition. No medication changes have been made. Discharge diagnoses: 1. Chest pain. 2. History of coronary artery disease with five-vessel CABG. 3. Hypertension. 4. Hyperlipidemia. 5. Hypothyroidism. 6. Short-term memory deficit. 7. Recurrent depression and generalized anxiety disorder. Discharge plan: Return home Impression and plan of care have been directed as dictated by the signing physician. Izzy Rossi nurse practitioner acting as scribe for signing physician. Patient Condition at Discharge: Good Plan - Discharge Summary New Discharge Prescriptions: Continue buPROPion HCL [Wellbutrin XL] 300 mg PO DAILY Nitroglycerin Sl Tabs [Nitrostat] 0.4 mg SUBLINGUAL Q5M PRN PRN Reason: Angina Losartan Potassium [Cozaar] 50 mg PO DAILY Levothyroxine Sodium [Synthroid] 75 mcg PO DAILY clonazePAM [KlonoPIN] 1 mg PO HS Metoprolol Tartrate [Lopressor] 25 mg PO BID Famotidine [Pepcid] 20 mg PO BID Donepezil [Aricept] 10 mg PO HS Atorvastatin [Lipitor] 80 mg PO DAILY busPIRone HCL 15 mg PO TID Escitalopram [Lexapro] 20 mg PO BID Discharge Medication List Atorvastatin [Lipitor] 80 mg PO DAILY 02/26/19 [History] Donepezil [Aricept] 10 mg PO HS 02/26/19 [History] Escitalopram [Lexapro] 20 mg PO BID 02/26/19 [History] Famotidine [Pepcid] 20 mg PO BID 02/26/19 [History] Levothyroxine Sodium [Synthroid] 75 mcg PO DAILY 02/26/19 [History] Losartan Potassium [Cozaar] 50 mg PO DAILY 02/26/19 [History] Metoprolol Tartrate [Lopressor] 25 mg PO BID 02/26/19 [History] Nitroglycerin Sl Tabs [Nitrostat] 0.4 mg SUBLINGUAL Q5M PRN 02/26/19 [History] buPROPion HCL [Wellbutrin XL] 300 mg PO DAILY 02/26/19 [History] busPIRone HCL 15 mg PO TID 02/26/19 [History] clonazePAM [KlonoPIN] 1 mg PO HS 02/26/19 [History] Follow up Appointment(s)/Referral(s): Santiago Dickinson MD [STAFF PHYSICIAN] - 1 Week (Office will call with a appointment) Tomás Preciado MD [Primary Care Provider] - 1 Week Discharge Disposition: HOME SELF-CARE
[2019-02-27] MEDS: SODIUM CHLORIDE 0.9% 1,000 ML IV SCH (14:38)
--- NOTE | 2019-03-04 08:52 | EST ---
Stress Test Results/Findings: Exam Performed: NM stress persantine cardiolite Exam Date: 02/27/19 Reason for Exam: CP Height: 4 ft 11 in Weight: 52.617 kg Protocol: PERSANTINE CARDIOLITE STRESS Stage: NA Duration of Exercise: NA Resting Heart Rate: 64 Resting Blood Pressure: 156/82 Maximum Achieved Heart Rate: 75 Maximum Achieved Blood Pressure: 162/66 85% PMHR: NA 100% PMHR: NA METS: NA Technologist Comment: Stress Test Results/Findings: This is a 68-year-old female with history of hypertension, family history of ischemic heart disease being evaluated for symptoms of chest pain. Patient also has history of previous bypass surgery. Stress data: Baseline EKG showed sinus rhythm with normal CT interval and QRS duration. Blood pressure at rest is 156/82 with pulse rate of 64. A standard dose of Persantine was infused. EKGs taken during and after infusion did not reveal any significant changes from baseline. Final impression #1. Negative Lexiscan stress test #2 ,Report on the nuclear images to be given by the radiologist STEVE
== END 2019-02-27 15:00 | disposition home or self-care (01) ==
LOC: EC 07:26 → 1SOBS 08:56
PROVIDERS: ADMIT Internal Medicine; ATTEND Internal Medicine
DX: R07.2 Precordial pain (principal); R00.1 Bradycardia, unspecified; R53.83 Other fatigue; I10 Essential (primary) hypertension; E78.5 Hyperlipidemia, unspecified; E03.9 Hypothyroidism, unspecified; R41.3 Other amnesia; F41.1 Generalized anxiety disorder; F33.9 Major depressive disorder, recurrent, unspecified; I25.10 Atherosclerotic heart disease of native coronary artery without angina pectoris; I25.2 Old myocardial infarction; G47.30 Sleep apnea, unspecified; Z99.89 Dependence on other enabling machines and devices; Z79.899 Other long term (current) drug therapy; Z95.1 Presence of aortocoronary bypass graft; Z79.890 Hormone replacement therapy; Z88.5 Allergy status to narcotic agent; Z80.0 Family history of malignant neoplasm of digestive organs; Z84.0 Family history of diseases of the skin and subcutaneous tissue
CPT/HCPCS: 96360; 96361 ×2; 99285; 36415; 93005; 93017; 93306; 80053; 84443; 83735; 84484; 85025; 85610; 85730; 71046; 78452; G0378 ×2; A9500

== ENCOUNTER → 2019-04-07 | Outpatient (CLI) | payer MEDICARE ==
[2019-04-07 12:38] LABS: Appearance,Urine Clear (Clear); Bilirubin,Urine Negative (Negative); Blood,Urine Negative (Negative); Color,Urine Yellow; Glucose,Urine (UA) Negative (Negative); Ketones,Urine Negative (Negative); Leukocyte Esterase,Urine Negative (Negative); Nitrite,Urine Negative (Negative); PH, Urine 5.5 (5.0-8.0); Protein,Urine Negative (Negative); Specific Gravity,Urine 1.012 (1.001-1.035); Urobilinogen,Urine <2.0 mg/dL (<2.0)
[2019-04-07 12:42] LABS: Basophils % (A) 1 %; Eosinophils # (A) 0.2 k/uL (0-0.7); Eosinophils % (A) 5 %; HCT 41.6 % (34.0-46.0); HGB 13.4 gm/dL (11.4-16.0); Lymphocytes # (A) 1.3 k/uL (1.0-4.8); Lymphocytes % (A) 25 %; MCH 29.8 pg (25.0-35.0); MCHC 32.3 g/dL (31.0-37.0); MCV 92.2 fL (80.0-100.0); Mean Platelet Volume 7.5; Monocytes # (A) 0.2 k/uL (0-1.0); Monocytes % (A) 4 %; Neutrophils # (A) 3.2 k/uL (1.3-7.7); Neutrophils % (A) 63 %; Platelet Count 172 k/uL (150-450); RBC 4.52 m/uL (3.80-5.40); RDW 14.3 % (11.5-15.5)
[2019-04-07 12:48] LABS: INR 0.9 (<1.2); Partial Thromboplastin Time 23.2 sec (22.0-30.0); Prothrombin Time 9.9 sec (9.0-12.0)
--- NOTE | 2019-04-07 13:17 | XR ---
EXAMINATION TYPE: XR chest 2V DATE OF EXAM: 04/07/2019 COMPARISON: Prior chest x-ray 02/26/2019 HISTORY: Normal pressure hydrocephalus, preop TECHNIQUE: Frontal and lateral views of the chest are obtained. FINDINGS: Patient is post median sternotomy. Marked scoliosis is again seen. There is no evident pne umonia, pneumothorax, or pleural effusion. Cardiac mediastinal silhouette, pulmonary vascularity and jake within normal limits accounting for technique. Superior sternal wire is fractured as on prior ex am. Prominent lung volume may be indicative of underlying COPD. The aorta is dense. IMPRESSION: No acute cardiopulmonary process.
[2019-04-07 20:16] LABS: Albumin 4.2 g/dL (3.80-4.90); Albumin/Globulin Ratio 2.63 (1.60-3.17); Anion Gap 10.4 mmol/L (4.00-12.00); Calcium 9.2 mg/dL (8.7-10.3); Carbon Dioxide 27.6 mmol/L (21.6-31.8); Globulin 1.6 g/dL (1.6-3.3); Potassium 4.5 mmol/L (3.5-5.5); Total Bilirubin 0.9 mg/dL (0.3-1.2); Total Protein 5.8 g/dL (6.2-8.2)
== END | disposition home or self-care (01) ==
LOC: LABWHC1 11:51
PROVIDERS: ATTEND Neurological Surgery
DX: Z01.818 Encounter for other preprocedural examination (principal); Z01.812 Encounter for preprocedural laboratory examination; G91.2 (Idiopathic) normal pressure hydrocephalus
CPT/HCPCS: 36415; 71046; 80053; 81003; 85025; 85610; 85730; 87070; 93005

== ENCOUNTER 2019-05-23 11:24 | Emergency (ER) | payer MEDICARE ==
[2019-05-23 11:41] VITALS: RESP 18
--- NOTE | 2019-05-23 11:55 | ED ---
General Adult HPI - General Chief complaint: Fall Stated complaint: Fall Time Seen by Provider: 05/23/19 11:30 Source: patient, EMS, RN notes reviewed Mode of arrival: EMS Limitations: no limitations - History of Present Illness Initial comments: 68-year-old female with a past medical history of chest pain, hyperlipidemia, hypertension, cardial infarction, thyroid disorder, NPH with shunt placement presents to the emergency department for a chief complaint of head injury. Patient states she was getting out of the shower and was moving a chair when she slipped and fell hitting her head on a tile. No loss of consciousness. No blood thinners. Denies any other injuries. Does admit to right shoulder pain but states that this is chronic and she had surgery several years ago. No new pain.Patient has no other complaints at this time including shortness of breath, chest pain, abdominal pain, nausea or vomiting, headache, or visual changes. - Related Data Home Medications Medication Instructions Recorded Confirmed Atorvastatin [Lipitor] 80 mg PO HS 02/26/19 05/23/19 Donepezil [Aricept] 10 mg PO HS 02/26/19 05/23/19 Escitalopram [Lexapro] 20 mg PO BID 02/26/19 05/23/19 Levothyroxine Sodium [Synthroid] 75 mcg PO DAILY 02/26/19 05/23/19 Losartan Potassium [Cozaar] 50 mg PO DAILY 02/26/19 05/23/19 buPROPion HCL [Wellbutrin XL] 300 mg PO DAILY 02/26/19 05/23/19 busPIRone HCL 15 mg PO TID 02/26/19 05/23/19 clonazePAM [KlonoPIN] 1 mg PO HS 02/26/19 05/23/19 Metoprolol Tartrate [Lopressor] 12.5 mg PO BID 05/23/19 05/23/19 Omeprazole 20 mg PO DAILY 05/23/19 05/23/19 Allergies Allergy/AdvReac Type Severity Reaction Status Date / Time hydromorphone [From Dilaudid] Allergy Anaphylaxis Verified 05/23/19 12:25 Review of Systems ROS Statement: Those systems with pertinent positive or pertinent negative responses have been documented in the HPI. ROS Other: All systems not noted in ROS Statement are negative. Past Medical History Past Medical History: Chest Pain / Angina, Hyperlipidemia, Hypertension, Myocardial Infarction ([place]), Sleep Apnea/CPAP/BIPAP, Thyroid Disorder Additional Past Medical History / Comment(s): Short-term memory loss Last Myocardial Infarction Date:: 2014 History of Any Multi-Drug Resistant Organisms: None Reported Past Surgical History: Coronary Bypass/CABG Additional Past Surgical History / Comment(s): Coronary artery bypass graft 5 vessel 15 years ago, less knee arthroscopically, right shoulder surgery, sleep apnea surgery, hysterectomy for dysfunctional uterine bleeding. Past Anesthesia/Blood Transfusion Reactions: No Reported Reaction Past Psychological History: Anxiety Smoking Status: Never smoker Past Alcohol Use History: None Reported Past Drug Use History: None Reported - Past Family History Father Additional Family Medical History / Comment(s): Father at age 80 with history of rectal cancer and coronary artery disease. Mother Additional Family Medical History / Comment(s): Mother at age 71 from scleroderma. Brother(s) Additional Family Medical History / Comment(s): Patient has 2 brothers. One at age 61 from a myocardial infarction. One is alive with no major medical problems. General Exam Limitations: no limitations General appearance: alert, in no apparent distress Head exam: Present: atraumatic, normocephalic, normal inspection Eye exam: Present: normal appearance, PERRL, EOMI. Absent: scleral icterus, conjunctival injection, periorbital swelling ENT exam: Present: normal exam, normal oropharynx, mucous membranes moist, TM's normal bilaterally, normal external ear exam Neck exam: Present: normal inspection. Absent: tenderness, meningismus, lymphadenopathy Respiratory exam: Present: normal lung sounds bilaterally. Absent: respiratory distress, wheezes, rales, rhonchi, stridor Cardiovascular Exam: Present: regular rate, normal rhythm, normal heart sounds. Absent: systolic murmur, diastolic murmur, rubs, gallop, clicks GI/Abdominal exam: Present: soft, normal bowel sounds. Absent: distended, tenderness, guarding, rebound, rigid Extremities exam: Present: full ROM (Full range of motion of upper extremities bilaterally as well as lower extremities, no evidence of trauma or ecchymosis on any extremities. However patient does have some tenderness to the left humerus as well as some tenderness to the right shoulder. Radial pulse 2+ in upper extremities bilaterally.) Back exam: Absent: CVA tenderness (R), CVA tenderness (L), vertebral tenderness (no thoracic or lumbar spine tenderness) Neurological exam: Present: alert, oriented X3, CN II-XII intact, other (GCS 15) Psychiatric exam: Present: normal affect, normal mood Course Vital Signs 05/23/19 11:31 Temperature 98.2 F Pulse Rate 63 Respiratory 18 Rate Blood Pressure 151/78 O2 Sat by Pulse 96 Oximetry Medical Decision Making - Medical Decision Making 68-year-old female with a past medical history of chest pain hyperlipidemia hypertension and myocardial infarction, thyroid disorder, NPH with shunt placement 04/22/2019 presents for headache injury. Patient slipped and fell hitting her head in the shower. No dizziness preceding this fall. Purely mechanical. Vitals are stable.CT brain shows no acute cranial abnormality. There is mild chronic white matter ischemic change. There is minimal prominence of the lateral ventricles that may reflect atrophic change or may reflect shunt malfunction. This was compared to previous MRI, ventricles are similar size. Patient is not having any headache or vomiting, clinically does not correlate with shunt malfunction. CT C-spine shows no acute osseous lesion. Moderate degenerative change. X-ray of the right shoulder shows no acute osseous lesion. X-ray of the left humerus shows no acute osseous lesion. This x-ray shows no acute intrathoracic abnormality. At this time patient very anxious for discharge. Patient will be discharged home. Recommended to return if she has any worsening symptoms. Disposition Clinical Impression: Fall, Head injury Disposition: HOME SELF-CARE Condition: Good Instructions (If sedation given, give patient instructions): Head Injury (ED) Additional Instructions: Please follow up with primary care in 1-2 days. Return here to the emergency department if you develop headaches vomiting or any other symptoms. Is patient prescribed a controlled substance at d/c from ED?: No Referrals: Tomás Preciado MD [Primary Care Provider] - 1-2 days Time of Disposition: 14:22
--- NOTE | 2019-05-23 13:30 | CT ---
EXAMINATION TYPE: CT brain yves pope DATE OF EXAM: 05/23/2019 COMPARISON: NONE HISTORY: fall CT DLP: 1161.5 mGycm Automated exposure control for dose reduction was used. TECHNIQUE: CT scan of the head and cervical spine are performed without contrast. FINDINGS: BRAIN: There is a ventriculoperitoneal shunt in place via a right parieto-occipital approach. Its tip is near the third ventricle. There is minimal prominence of the lateral ventricles. This may be atro phic change. Shunt minor malfunction is not excluded. There is some periventricular white matter luce ncy, compatible with chronic white matter ischemic change. There is no focal lesion, mass effect or m idline shift identified. I do not see evidence of intracranial blood. Visualized portions of the paranasal sinuses and mastoids are clear. IMPRESSION: 1. NO ACUTE INTRACRANIAL ABNORMALITY. 2. MILD, CHRONIC WHITE MATTER ISCHEMIC CHANGE. 3. MILD PROMINENCE OF THE VENTRICLES MAY REFLECT ATROPHIC CHANGE OR MAY REFLECT SHUNT MALFUNCTION. P LEASE CORRELATE CLINICALLY. CERVICAL SPINE: Visualized portions of the lungs are clear. Prevertebral soft tissues are normal. Vertebral body height and alignment are maintained. Atlantoaxial relationships are normal. There is diffuse degenerative disc disease most marked at C5-6 and C6-7. There is marked uncovertebra l joint disease present at these levels. There is facet arthropathy on the left at C2-3 and C3-4 as w ell as C4-5. This hypertrophic spondylosis present posteriorly at C4-5, C5-6 and C6-7. No definite pr otrusion is seen. No fractures identified. There has been a midline sternotomy. IMPRESSION: 1. NO ACUTE OSSEOUS LESION. 2. MODERATE DEGENERATIVE CHANGE.
--- NOTE | 2019-05-23 13:57 | XR ---
EXAMINATION TYPE: XR chest 2V DATE OF EXAM: 05/23/2019 HISTORY: Pain. REFERENCE: Previous study dated 04/07/2019. FINDINGS: There has been a midline sternotomy. There is COPY CHIEF shunt tubing projecting over the right femi st. There is a moderate S-shaped scoliosis convex to the left in the thoracic region and to the right in the lumbar region. The lungs are clear. Pleural space are clear. The heart is not enlarged. IMPRESSION: NO ACTIVE INTRATHORACIC DISEASE.
--- NOTE | 2019-05-23 13:58 | XR ---
EXAMINATION TYPE: XR shoulder complete RT , 3 VIEWS DATE OF EXAM ORDERED: 05/23/2019 HISTORY: Pain. COMPARISON: None. FINDINGS: No fracture, dislocation or other acute osseous lesion is seen. There is deviation tubing projecting over the right chest. There has been a midline sternotomy. IMPRESSION: NO ACUTE OSSEOUS LESION.
--- NOTE | 2019-05-23 14:07 | XR ---
EXAMINATION TYPE: XR humerus LT , 3 VIEWS DATE OF EXAM ORDERED: 05/23/2019 HISTORY: Pain. COMPARISON: None. FINDINGS: No long bone fracture is seen. There are vascular clips in the forearm. There is degenerat sunday change in the left AC joint. IMPRESSION: NO ACUTE OSSEOUS LESION.
[2019-05-23 14:40] VITALS: BP 157/86; PULSE 65; TEMP 98.3
== END 2019-05-23 14:40 | disposition home or self-care (01) ==
LOC: EC 11:24
DX: S09.90XA Unspecified injury of head, initial encounter (principal); E78.5 Hyperlipidemia, unspecified; I10 Essential (primary) hypertension; I25.2 Old myocardial infarction; E07.9 Disorder of thyroid, unspecified; G47.30 Sleep apnea, unspecified; F41.9 Anxiety disorder, unspecified; Z79.890 Hormone replacement therapy; Z79.899 Other long term (current) drug therapy; Z88.5 Allergy status to narcotic agent; Z95.1 Presence of aortocoronary bypass graft; M50.322 Other cervical disc degeneration at C5-C6 level; M47.812 Spondylosis without myelopathy or radiculopathy, cervical region; W18.2XXA Fall in (into) shower or empty bathtub, initial encounter; Y93.E1 Activity, personal bathing and showering; Y92.002 Bathroom of unspecified non-institutional (private) residence as the place of occurrence of the external cause
CPT/HCPCS: 70450; 71046; 72125; 99284

== ENCOUNTER 2019-06-22 11:12 | Emergency (ER) | payer MEDICARE ==
[2019-06-22 11:40] VITALS: RESP 18
[2019-06-22] MEDS ORDERED: SODIUM CHLORIDE 0.9% 500 ML 500 ML IV ONE (11:48)
--- NOTE | 2019-06-22 12:05 | ED ---
Altered Mental Status HPI - General Chief Complaint: Altered Mental Status Stated Complaint: Confusion, Tremors Time Seen by Provider: 06/22/19 11:47 Source: patient, family, EMS Mode of arrival: EMS Limitations: altered mental status - History of Present Illness Initial Comments: 68-year-old female presenting with altered mental status. Patient's daughter at bedside assisting with history. Patient states she's felt confused for the last 3 days. Patient's daughter states she's been a and O 2 and she is normally a and O 4. Patient's also been complaining of burning with urination. 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 They have not been able to follow up with the physician from [facility] since then secondary to the patient's 's medical conditions. She is not complaining of worsening headaches she denies any fevers at home. She denies any chest pain, shortness of breath, nausea/vomiting/diarrhea. Denies other symptoms. Patient does have a history of Alzheimers disease. She lives alone currently. - Related Data Home Medications Medication Instructions Recorded Confirmed Atorvastatin [Lipitor] 80 mg PO HS 02/26/19 06/22/19 Donepezil [Aricept] 10 mg PO HS 02/26/19 06/22/19 Escitalopram [Lexapro] 20 mg PO BID 02/26/19 06/22/19 Levothyroxine Sodium [Synthroid] 75 mcg PO DAILY 02/26/19 06/22/19 Losartan Potassium [Cozaar] 50 mg PO DAILY 02/26/19 06/22/19 buPROPion HCL [Wellbutrin XL] 300 mg PO DAILY 02/26/19 06/22/19 busPIRone HCL 15 mg PO TID 02/26/19 06/22/19 clonazePAM [KlonoPIN] 1 mg PO HS 02/26/19 06/22/19 Famotidine [Pepcid] 20 mg PO BID 06/22/19 06/22/19 Metoprolol Tartrate [Lopressor] 25 mg PO BID 06/22/19 06/22/19 Allergies Allergy/AdvReac Type Severity Reaction Status Date / Time hydromorphone [From Dilaudid] Allergy Anaphylaxis Verified 06/22/19 11:35 Review of Systems ROS Statement: Those systems with pertinent positive or pertinent negative responses have been documented in the HPI. Review of Systems Constitutional: Denies fever, chills Eyes: Denies change in vision, Denies pain Ears, nose, mouth, throat: Denies headaches, Denies sore throat Cardiovascular: Denies chest pain. Denies palpitations Respiratory: Denies shortness of breath, Denies cough Gastrointestinal: Denies abdominal pain. Denies nausea, vomiting, diarrhea. Genitourinary: Denies hematuria, Positive dysuria Musculoskeletal: Denies pain, Denies swelling Integumentary: Denies rash Neurological: Denies headache, focal weakness, focal numbness. Positive confusion Psychiatric: Denies anxiety, Denies depression Hematologic/Lymphatic: Denies easy bleeding or bruising ROS Other: All systems not noted in ROS Statement are negative. Past Medical History Past Medical History: Chest Pain / Angina, Hyperlipidemia, Hypertension, Myocardial Infarction ([place]), Sleep Apnea/CPAP/BIPAP, Thyroid Disorder Additional Past Medical History / Comment(s): Short-term memory loss Last Myocardial Infarction Date:: 2014 History of Any Multi-Drug Resistant Organisms: None Reported Past Surgical History: Coronary Bypass/CABG Additional Past Surgical History / Comment(s): Coronary artery bypass graft 5 vessel 15 years ago, less knee arthroscopically, right shoulder surgery, sleep apnea surgery, hysterectomy for dysfunctional uterine bleeding. NPH- shunt placed March 2019, Alzheimersue Past Anesthesia/Blood Transfusion Reactions: No Reported Reaction Past Psychological History: Anxiety, Depression Smoking Status: Never smoker Past Alcohol Use History: None Reported Past Drug Use History: None Reported - Past Family History Father Additional Family Medical History / Comment(s): Father at age 80 with history of rectal cancer and coronary artery disease. Mother Additional Family Medical History / Comment(s): Mother at age 71 from scleroderma. Brother(s) Additional Family Medical History / Comment(s): Patient has 2 brothers. One at age 61 from a myocardial infarction. One is alive with no major medical problems. General Exam - General Exam Comments Initial Comments: General: Awake, alert, No acute Distress HENT: Normocephalic. Atraumatic Eyes: PERRL. EOMI. No scleral icterus. No injected conjunctiva Neck: Full ROM Chest/Lungs: Clear to auscultation bilaterally. No wheezing, rhonchi, or rales Cardiac: Regular rate, rhythm. No murmurs or rubs Abdomen/GI: Soft, nontender, nondistended. No rebound, guarding, or rigidity. Musculoskeletal: Full ROM Skin: Warm, dry, intact Neurologic: A/Ox3, no weakness, no sensory deficit, no abnormal gait, no coordination deficit. Generalized tremor. Limitations: altered mental status Course Vital Signs 06/22/19 11:32 Temperature 99.6 F Pulse Rate 63 Respiratory 18 Rate Blood Pressure 134/68 O2 Sat by Pulse 98 Oximetry Medical Decision Making - Medical Decision Making 68-year-old female presenting with confusion and dysuria. On initial exam the patient is awake, alert, no acute distress. VSS. She is AO 3 for me. She has no neurologic deficit on exam. Her laboratory workup was negative for acute process. Her CT showed no change. Unlikely her shunt is malfunctioning with the CT results, so a shuntogram was not done. No indication to transfer the patient back to [facility]. The patient has no history of fever and her WBC is 10.9. Unlikely to be a shunt infection. She has no focal neurologic deficit to suggest stroke. Patient does have a history of Alzheimers, and it is possible these episodes could be related to disease progression. She has had no episodes of confusion in the department. The patient's tremors have resolved. I discussed this in length with the patient and her daughter. Daughter states she is concerned it could be due to the amount of stress they are under from the pat layla's being very ill recently. The patient lives alone, but the daughter is agreeable to staying with the patient for the next few days to make sure her status does not worsen. They are agreeable to making appointments to follow up with the neurosurgeon and her PCP. No further emergent workup indicated. The patient was given return to ED instructions. They were instructed to follow up with their primary care provider. Stable for discharge at this time. - Lab Data Result diagrams: 06/22/19 11:30 06/22/19 11:30 Lab Results 06/22/19 06/22/19 06/22/19 Range/Units 11:30 11:30 11:30 WBC 10.9 H (3.8-10.6) k/uL RBC 4.73 (3.80-5.40) m/uL Hgb 14.2 (11.4-16.0) gm/dL Hct 43.4 (34.0-46.0) % MCV 91.7 (80.0-100.0) fL MCH 30.0 (25.0-35.0) pg MCHC 32.7 (31.0-37.0) g/dL RDW 14.4 (11.5-15.5) % Plt Count 145 L (150-450) k/uL Neutrophils % 85 % Lymphocytes % 9 % Monocytes % 5 % Eosinophils % 0 % Basophils % 0 % Neutrophils # 9.2 H (1.3-7.7) k/uL Lymphocytes # 1.0 (1.0-4.8) k/uL Monocytes # 0.5 (0-1.0) k/uL Eosinophils # 0.1 (0-0.7) k/uL Basophils # 0.0 (0-0.2) k/uL PT 10.2 (9.0-12.0) sec INR 0.9 (<1.2) APTT 19.1 L (22.0-30.0) sec Sodium 135 L (137-145) mmol/L Potassium 3.8 (3.5-5.1) mmol/L Chloride 101 (98-107) mmol/L Carbon Dioxide 23 (22-30) mmol/L Anion Gap 11 mmol/L BUN 20 H (7-17) mg/dL Creatinine 1.09 H (0.52-1.04) mg/dL Est GFR (CKD-EPI)AfAm 60 (>60 ml/min/1.73 sqM) Est GFR (CKD-EPI)NonAf 52 (>60 ml/min/1.73 sqM) Glucose 133 H (74-99) mg/dL POC Glucose (mg/dL) (75-99) mg/dL POC Glu [place] [employer]er ID Calcium 8.7 (8.4-10.2) mg/dL Total Bilirubin 0.9 (0.2-1.3) mg/dL AST 40 H (14-36) U/L ALT 31 (9-52) U/L Alkaline Phosphatase 45 (38-126) U/L Troponin I (0.000-0.034) ng/mL NT-Pro-B Natriuret Pep pg/mL Total Protein 6.1 L (6.3-8.2) g/dL Albumin 3.8 (3.5-5.0) g/dL Urine Color Urine Appearance (Clear) Urine pH (5.0-8.0) Ur Specific [place] (1.001-1.035) Urine Protein (Negative) Urine Glucose (UA) (Negative) Urine Ketones (Negative) Urine Blood (Negative) Urine Nitrite (Negative) Urine Bilirubin (Negative) Urine Urobilinogen (<2.0) mg/dL Ur Leukocyte Esterase (Negative) Urine RBC (0-5) /hpf Urine WBC (0-5) /hpf Amorphous Sediment (None) /hpf Urine Bacteria (None) /hpf Urine Mucus (None) /hpf Urine Opiates Screen (NotDetected) Ur Oxycodone Screen (NotDetected) Urine Methadone Screen (NotDetected) Ur Propoxyphene Screen (NotDetected) Ur Barbiturates Screen (NotDetected) U Tricyclic Antidepress (NotDetected) Ur Phencyclidine Scrn (NotDetected) Ur Amphetamines Screen (NotDetected) U Methamphetamines Scrn (NotDetected) U Benzodiazepines Scrn (NotDetected) Urine Cocaine Screen (NotDetected) U Marijuana (THC) Screen (NotDetected) 06/22/19 06/22/19 06/22/19 Range/Units 11:30 11:30 12:00 WBC (3.8-10.6) k/uL RBC (3.80-5.40) m/uL Hgb (11.4-16.0) gm/dL Hct (34.0-46.0) % MCV (80.0-100.0) fL MCH (25.0-35.0) pg MCHC (31.0-37.0) g/dL RDW (11.5-15.5) % Plt Count (150-450) k/uL Neutrophils % % Lymphocytes % % Monocytes % % Eosinophils % % Basophils % % Neutrophils # (1.3-7.7) k/uL Lymphocytes # (1.0-4.8) k/uL Monocytes # (0-1.0) k/uL Eosinophils # (0-0.7) k/uL Basophils # (0-0.2) k/uL PT (9.0-12.0) sec INR (<1.2) APTT (22.0-30.0) sec Sodium (137-145) mmol/L Potassium (3.5-5.1) mmol/L Chloride (98-107) mmol/L Carbon Dioxide (22-30) mmol/L Anion Gap mmol/L BUN (7-17) mg/dL Creatinine (0.52-1.04) mg/dL Est GFR (CKD-EPI)AfAm (>60 ml/min/1.73 sqM) Est GFR (CKD-EPI)NonAf (>60 ml/min/1.73 sqM) Glucose (74-99) mg/dL POC Glucose (mg/dL) 130 H (75-99) mg/dL POC Glu [place] [employer] Work[employer] ID [place] Calcium (8.4-10.2) mg/dL Total Bilirubin (0.2-1.3) mg/dL AST (14-36) U/L ALT (9-52) U/L Alkaline Phosphatase (38-126) U/L Troponin I 0.012 (0.000-0.034) ng/mL NT-Pro-B Natriuret Pep 1340 pg/mL Total Protein (6.3-8.2) g/dL Albumin (3.5-5.0) g/dL Urine Color Urine Appearance (Clear) Urine pH (5.0-8.0) Ur Specific [place] (1.001-1.035) Urine Protein (Negative) Urine Glucose (UA) (Negative) Urine Ketones (Negative) Urine Blood (Negative) Urine Nitrite (Negative) Urine Bilirubin (Negative) Urine Urobilinogen (<2.0) mg/dL Ur Leukocyte Esterase (Negative) Urine RBC (0-5) /hpf Urine WBC (0-5) /hpf Amorphous Sediment (None) /hpf Urine Bacteria (None) /hpf Urine Mucus (None) /hpf Urine Opiates Screen (NotDetected) Ur Oxycodone Screen (NotDetected) Urine Methadone Screen (NotDetected) Ur Propoxyphene Screen (NotDetected) Ur Barbiturates Screen (NotDetected) U Tricyclic Antidepress (NotDetected) Ur Phencyclidine Scrn (NotDetected) Ur Amphetamines Screen (NotDetected) U Methamphetamines Scrn (NotDetected) U Benzodiazepines Scrn (NotDetected) Urine Cocaine Screen (NotDetected) U Marijuana (THC) Screen (NotDetected) 06/22/19 Range/Units 13:27 WBC (3.8-10.6) k/uL RBC (3.80-5.40) m/uL Hgb (11.4-16.0) gm/dL Hct (34.0-46.0) % MCV (80.0-100.0) fL MCH (25.0-35.0) pg MCHC (31.0-37.0) g/dL RDW (11.5-15.5) % Plt Count (150-450) k/uL Neutrophils % % Lymphocytes % % Monocytes % % Eosinophils % % Basophils % % Neutrophils # (1.3-7.7) k/uL Lymphocytes # (1.0-4.8) k/uL Monocytes # (0-1.0) k/uL Eosinophils # (0-0.7) k/uL Basophils # (0-0.2) k/uL PT (9.0-12.0) sec INR (<1.2) APTT (22.0-30.0) sec Sodium (137-145) mmol/L Potassium (3.5-5.1) mmol/L Chloride (98-107) mmol/L Carbon Dioxide (22-30) mmol/L Anion Gap mmol/L BUN (7-17) mg/dL Creatinine (0.52-1.04) mg/dL Est GFR (CKD-EPI)AfAm (>60 ml/min/1.73 sqM) Est GFR (CKD-EPI)NonAf (>60 ml/min/1.73 sqM) Glucose (74-99) mg/dL POC Glucose (mg/dL) (75-99) mg/dL POC Glu [place] [employer] Worker ID Calcium (8.4-10.2) mg/dL Total Bilirubin (0.2-1.3) mg/dL AST (14-36) U/L ALT (9-52) U/L Alkaline Phosphatase (38-126) U/L Troponin I (0.000-0.034) ng/mL NT-Pro-B Natriuret Pep pg/mL Total Protein (6.3-8.2) g/dL Albumin (3.5-5.0) g/dL Urine Color Yellow Urine Appearance Clear (Clear) Urine pH 5.5 (5.0-8.0) Ur Specific [place] 1.021 (1.001-1.035) Urine Protein 1+ H (Negative) Urine Glucose (UA) Negative (Negative) Urine Ketones Trace H (Negative) Urine Blood Small H (Negative) Urine Nitrite Negative (Negative) Urine Bilirubin Negative (Negative) Urine Urobilinogen <2.0 (<2.0) mg/dL Ur Leukocyte Esterase Negative (Negative) Urine RBC 1 (0-5) /hpf Urine WBC 1 (0-5) /hpf Amorphous Sediment Occasional H (None) /hpf Urine Bacteria Rare H (None) /hpf Urine Mucus Rare H (None) /hpf Urine Opiates Screen Not Detected (NotDetected) Ur Oxycodone Screen Not Detected (NotDetected) Urine Methadone Screen Not Detected (NotDetected) Ur Propoxyphene Screen Not Detected (NotDetected) Ur Barbiturates Screen Not Detected (NotDetected) U Tricyclic Antidepress Not Detected (NotDetected) Ur Phencyclidine Scrn Not Detected (NotDetected) Ur Amphetamines Screen Not Detected (NotDetected) U Methamphetamines Scrn Not Detected (NotDetected) U Benzodiazepines Scrn Not Detected (NotDetected) Urine Cocaine Screen Not Detected (NotDetected) U Marijuana (THC) Screen Not Detected (NotDetected) - EKG Data EKG Comments: EKG shows normal sinus rhythm at a rate of [address] segment elevation, depression. No prolonged QT/QTc or PA interval. No dysrythmia noted. Disposition Clinical Impression: Confusion Disposition: HOME SELF-CARE Condition: Good Instructions (If sedation given, give patient instructions): Altered Mental Status (ED) Additional Instructions: Call the neurosurgeon who placed the shunt and make a follow up appointment this week. Call the PCP, as well, and make a follow up appointment. Return to ER if patient has signs of stroke or develops a fever, or constant altered mental status. Is patient prescribed a controlled substance at d/c from ED?: No Referrals: Tomás Preciado MD [Primary Care Provider] - 1-2 days
[2019-06-22 12:11] LABS: Basophils % (A) 0 %; Eosinophils # (A) 0.1 k/uL (0-0.7); Eosinophils % (A) 0 %; HCT 43.4 % (34.0-46.0); HGB 14.2 gm/dL (11.4-16.0); Lymphocytes % (A) 9 %; MCHC 32.7 g/dL (31.0-37.0); MCV 91.7 fL (80.0-100.0); Mean Platelet Volume 8.1; Monocytes # (A) 0.5 k/uL (0-1.0); Monocytes % (A) 5 %; Neutrophils # (A) 9.2 k/uL (1.3-7.7); Neutrophils % (A) 85 %; Platelet Count 145 k/uL (150-450); RBC 4.73 m/uL (3.80-5.40); RDW 14.4 % (11.5-15.5); WBC 10.9 k/uL (3.8-10.6)
[2019-06-22 12:19] LABS: Albumin 3.8 g/dL (3.5-5.0); Calcium 8.7 mg/dL (8.4-10.2); Potassium 3.8 mmol/L (3.5-5.1); Total Bilirubin 0.9 mg/dL (0.2-1.3); Total Protein 6.1 g/dL (6.3-8.2)
[2019-06-22 12:21] LABS: Glucose,Whole Blood 130 mg/dL (75-99)
[2019-06-22 12:35] LABS: INR 0.9 (<1.2); Prothrombin Time 10.2 sec (9.0-12.0)
[2019-06-22 12:47] LABS: Partial Thromboplastin Time 19.1 sec (22.0-30.0)
--- NOTE | 2019-06-22 12:58 | CT ---
EXAMINATION TYPE: CT brain wo con DATE OF EXAM: 06/22/2019 COMPARISON: 05/23/2019 HISTORY: 68-year-old female Weakness and tremors TECHNIQUE: Examination was done in axial plane without intravenous contrast. Coronal and sagittal r econstructions performed. CT DLP: 1129.4 mGycm Automated exposure control for dose reduction was used. FINDINGS: There is no evidence of acute intracranial hemorrhage, acute ischemic changes, mass, mass-effect, or extra-axial fluid collection. There is no effacement of cerebral sulci or basal subarachnoid cister ns. There is no hydrocephalus. There is no midline shift. Sanchez-white matter distinction is preserv ed. Right posterior parietal approach PROFILE TRIMMER shunt catheter with tip in the posterior midline just above the third ventricle. Positioning is unchanged. Ventricular caliber is stable. No hydrocephalus. Paranasal sinuses and mastoid air cells well pneumatized. Orbits and globes are intact. IMPRESSION: No acute intracranial abnormality seen. Stable positioning of the right parietal approach PROFILE TRIMMER shunt ca theter. No hydrocephalus.
--- NOTE | 2019-06-22 12:59 | XR ---
EXAMINATION TYPE: XR chest 2V DATE OF EXAM: 06/22/2019 COMPARISON: Prior chest x-ray 05/23/2019 HISTORY: Altered mental status TECHNIQUE: Frontal and lateral views of the chest are obtained. FINDINGS: Prominent lung volume could be indicative of underlying COPD. Patient is post median sterno олег. Aorta is dense. There is thoracic spondylosis present. Probable ventriculoperitoneal shunt tubi ng is present over the right neck and chest. There is a spinal curvature. There is no focal air space opacity, pleural effusion, or pneumothorax seen. The cardiac silhouette size is within normal limit s. The osseous structures are intact. IMPRESSION: No acute cardiopulmonary process.
[2019-06-22 13:35] LABS: Amorphous Sediment,Urine Occasional /hpf; Appearance,Urine Clear (Clear); Bacteria,Urine Rare /hpf; Bilirubin,Urine Negative (Negative); Blood,Urine Small (Negative); Color,Urine Yellow; Glucose,Urine (UA) Negative (Negative); Ketones,Urine Trace (Negative); Leukocyte Esterase,Urine Negative (Negative); Mucus,Urine Rare /hpf; Nitrite,Urine Negative (Negative); PH, Urine 5.5 (5.0-8.0); Protein,Urine 1+ (Negative); RBC,Urine 1 /hpf (0-5); Specific Gravity,Urine 1.021 (1.001-1.035); Urobilinogen,Urine <2.0 mg/dL (<2.0); WBC,Urine 1 /hpf (0-5)
[2019-06-22 13:54] LABS: Amphetamine Screen,Urine Not Detected (NotDetected); Barbiturate Screen,Urine Not Detected (NotDetected); Benzodiazepines Screen,Urine Not Detected (NotDetected); Cocaine Screen,Urine Not Detected (NotDetected); Methadone Screen, Urine Not Detected (NotDetected); Opiate Screen,Urine Not Detected (NotDetected); Oxycodone Screen, Urine Not Detected (NotDetected); Phencyclidine Screen,Urine Not Detected (NotDetected); Tricyclic Antidepressant,Urine Not Detected (NotDetected); Urn Cannabinoid Scrn Not Detected (NotDetected)
[2019-06-22 14:11] VITALS: BP 153/84; PULSE 66; TEMP 98
== END 2019-06-22 14:11 | disposition home or self-care (01) ==
LOC: EC 11:12
DX: R41.0 Disorientation, unspecified (principal); R30.0 Dysuria; R25.1 Tremor, unspecified; G91.2 (Idiopathic) normal pressure hydrocephalus; G30.9 Alzheimer's disease, unspecified; E78.5 Hyperlipidemia, unspecified; I10 Essential (primary) hypertension; I25.2 Old myocardial infarction; G47.30 Sleep apnea, unspecified; E07.9 Disorder of thyroid, unspecified; F32.9 Major depressive disorder, single episode, unspecified; F41.9 Anxiety disorder, unspecified; Z88.5 Allergy status to narcotic agent; Z79.890 Hormone replacement therapy; Z79.899 Other long term (current) drug therapy; Z98.2 Presence of cerebrospinal fluid drainage device; Z95.1 Presence of aortocoronary bypass graft; Z99.89 Dependence on other enabling machines and devices
CPT/HCPCS: 36415; 70450; 71046; 80053; 80306; 81001; 83880; 84484; 85025; 85610; 85730; 87086; 93005; 96360; 99285

== ENCOUNTER 2019-06-22 22:08 | Inpatient (IN) | payer MEDICARE ==
[2019-06-22] MEDS ORDERED: SODIUM CHLORIDE 0.9% 1,000 ML IV STA ×2 (22:21)
[2019-06-22] MEDS ORDERED: IBUPROFEN 800 MG TAB PO STA (22:39)
[2019-06-22] MEDS ORDERED: ACETAMINOPHEN TAB 500 MG TAB PO STA (22:39)
--- NOTE | 2019-06-22 22:39 | ED ---
Weakness HPI - General Chief complaint: Weakness Stated complaint: Weakness Time Seen by Provider: 06/22/19 22:16 Source: patient, EMS, RN notes reviewed, old records reviewed Mode of arrival: EMS - History of Present Illness Initial comments: This is a 5-year-old female the ER for evaluation of severe weakness. Weakness not been well. Consistent and persistent shaking. Patient was noted a fever here in the ER, patient was seen in ER earlier today for evaluation. Her symp toms this morning. Family states patient's been very tremoring shaking ever since, all day, unable to eat or drink unable to fevers of. Increasing weakness. To the ER, patient was very weak unable to stand up and unable to move and was noted to be very sweaty with a fever. Patient was complaining of some abdominal pain. No nausea vomiting. No chest pain shortness of breath MD Complaint: generalized weakness (Shaking) -: hour(s) Location: generalized Severity: moderate Severity scale (1-10): 6 Consistency: constant Worsens with: none Context: recent illness Associated Symptoms: confusion, fever/chills, loss of appetite, nausea/vomiting - Related Data Home Medications Medication Instructions Recorded Confirmed Atorvastatin [Lipitor] 80 mg PO HS 02/26/19 06/22/19 Donepezil [Aricept] 10 mg PO HS 02/26/19 06/22/19 Escitalopram [Lexapro] 20 mg PO BID 02/26/19 06/22/19 Levothyroxine Sodium [Synthroid] 75 mcg PO DAILY 02/26/19 06/22/19 Losartan Potassium [Cozaar] 50 mg PO DAILY 02/26/19 06/22/19 buPROPion HCL [Wellbutrin XL] 300 mg PO DAILY 02/26/19 06/22/19 busPIRone HCL 15 mg PO TID 02/26/19 06/22/19 clonazePAM [KlonoPIN] 1 mg PO HS 02/26/19 06/22/19 Famotidine [Pepcid] 20 mg PO BID 06/22/19 06/22/19 Metoprolol Tartrate [Lopressor] 25 mg PO BID 06/22/19 06/22/19 Allergies Allergy/AdvReac Type Severity Reaction Status Date / Time hydromorphone [From Dilaudid] Allergy Anaphylaxis Verified 06/22/19 11:35 Review of Systems ROS Statement: Those systems with pertinent positive or pertinent negative responses have been documented in the HPI. ROS Other: All systems not noted in ROS Statement are negative. Past Medical History Past Medical History: Chest Pain / Angina, Hyperlipidemia, Hypertension, Myocardial Infarction ([place]), Sleep Apnea/CPAP/BIPAP, Thyroid Disorder Additional Past Medical History / Comment(s): Short-term memory loss Last Myocardial Infarction Date:: 2014 History of Any Multi-Drug Resistant Organisms: None Reported Past Surgical History: Coronary Bypass/CABG Additional Past Surgical History / Comment(s): Coronary artery bypass graft 5 vessel 15 years ago, less knee arthroscopically, right shoulder surgery, sleep apnea surgery, hysterectomy for dysfunctional uterine bleeding. NPH- shunt placed March 2019, Alzheimers Past Anesthesia/Blood Transfusion Reactions: No Reported Reaction Past Psychological History: Anxiety, Depression Smoking Status: Never smoker Past Alcohol Use History: None Reported Past Drug Use History: None Reported - Past Family History Father Additional Family Medical History / Comment(s): Father at age 80 with history of rectal cancer and coronary artery disease. Mother Additional Family Medical History / Comment(s): Mother at age 71 from scleroderma. Brother(s) Additional Family Medical History / Comment(s): Patient has 2 brothers. One at age 61 from a myocardial infarction. One is alive with no major medical problems. General Exam - General Exam Comments Initial Comments: Patient with tremors General appearance: alert, in no apparent distress Head exam: Present: atraumatic, normocephalic, normal inspection Eye exam: Present: normal appearance, PERRL, EOMI. Absent: scleral icterus, conjunctival injection, periorbital swelling ENT exam: Present: normal exam, mucous membranes moist Neck exam: Present: normal inspection. Absent: tenderness, meningismus, lymphadenopathy Respiratory exam: Present: normal lung sounds bilaterally. Absent: respiratory distress, wheezes, rales, rhonchi, stridor Cardiovascular Exam: Present: normal rhythm, tachycardia, normal heart sounds. Absent: systolic murmur, diastolic murmur, rubs, gallop, clicks GI/Abdominal exam: Present: soft, normal bowel sounds. Absent: distended, tenderness, guarding, rebound, rigid Extremities exam: Present: normal inspection, full ROM, normal capillary refill. Absent: tenderness, pedal edema, joint swelling, calf tenderness Back exam: Present: normal inspection Neurological exam: Present: alert, oriented X3, CN II-XII intact Psychiatric exam: Present: normal affect, normal mood Skin exam: Present: warm, dry, intact, normal color. Absent: rash Course Vital Signs 06/22/19 06/23/19 06/23/19 22:16 01:05 03:40 Temperature 102.6 F H 99.6 F 98 F Pulse Rate 111 H 77 65 Respiratory 20 16 16 Rate Blood Pressure 138/62 128/84 135/69 O2 Sat by Pulse 99 100 98 Oximetry 06/23/19 06/23/19 06/23/19 05:17 07:28 08:20 Temperature 98.6 F 98.6 F Pulse Rate 61 61 Respiratory 16 16 Rate Blood Pressure 118/70 108/61 108/61 O2 Sat by Pulse 97 100 100 Oximetry - Reevaluation(s) Reevaluation #1: 06/23/19 00:55 Medical records reviewed Reevaluation #2: 06/23/19 00:55 Patient has fever control, feeling improved EKG Findings - EKG Comments: EKG Findings:: EKG shows sinus rhythm rate of 79, IN 140, QRS 70, QTc 449 Medical Decision Making - Medical Decision Making 28 female the ER for evaluation patient presents today for evaluation regarding fever weakness dehydration. Fever or now controlled place on antibiotics and admit for evaluation - Lab Data Result diagrams: 06/24/19 07:57 06/25/19 07:44 Lab Results 06/22/19 06/22/19 06/22/19 Range/Units 23:00 23:00 23:00 WBC 8.8 (3.8-10.6) k/uL RBC 4.20 (3.80-5.40) m/uL Hgb 12.2 (11.4-16.0) gm/dL Hct 37.5 (34.0-46.0) % MCV 89.2 (80.0-100.0) fL MCH 29.0 (25.0-35.0) pg MCHC 32.5 (31.0-37.0) g/dL RDW 13.4 (11.5-15.5) % Plt Count 127 L (150-450) k/uL Neutrophils % 75 % Lymphocytes % 16 % Monocytes % 6 % Eosinophils % 0 % Basophils % 0 % Neutrophils # 6.6 (1.3-7.7) k/uL Lymphocytes # 1.4 (1.0-4.8) k/uL Monocytes # 0.5 (0-1.0) k/uL Eosinophils # 0.0 (0-0.7) k/uL Basophils # 0.0 (0-0.2) k/uL PT (9.0-12.0) sec INR (<1.2) APTT (22.0-30.0) sec Sodium 133 L (137-145) mmol/L Potassium 3.7 (3.5-5.1) mmol/L Chloride 102 (98-107) mmol/L Carbon Dioxide 22 (22-30) mmol/L Anion Gap 9 mmol/L BUN 18 H (7-17) mg/dL Creatinine 1.05 H (0.52-1.04) mg/dL Est GFR (CKD-EPI)AfAm 62 (>60 ml/min/1.73 sqM) Est GFR (CKD-EPI)NonAf 54 (>60 ml/min/1.73 sqM) Glucose 109 H (74-99) mg/dL Plasma Lactic Acid Riccardo 1.0 (0.7-2.0) mmol/L Calcium 8.6 (8.4-10.2) mg/dL Phosphorus 2.5 (2.5-4.5) mg/dL Magnesium 1.9 (1.6-2.3) mg/dL Total Bilirubin 0.8 (0.2-1.3) mg/dL AST 61 H (14-36) U/L ALT 32 (9-52) U/L Alkaline Phosphatase 53 (38-126) U/L Creatine Kinase 1965 H* (30-135) U/L Troponin I (0.000-0.034) ng/mL Total Protein 5.8 L (6.3-8.2) g/dL Albumin 3.6 (3.5-5.0) g/dL Lipase (23-300) U/L TSH 2.190 (0.465-4.680) mIU/L Influenza Type A RNA (Not Detectd) Influenza Type B (PCR) (Not Detectd) 06/22/19 06/22/19 06/22/19 Range/Units 23:00 23:00 23:00 WBC (3.8-10.6) k/uL RBC (3.80-5.40) m/uL Hgb (11.4-16.0) gm/dL Hct (34.0-46.0) % MCV (80.0-100.0) fL MCH (25.0-35.0) pg MCHC (31.0-37.0) g/dL RDW (11.5-15.5) % Plt Count (150-450) k/uL Neutrophils % % Lymphocytes % % Monocytes % % Eosinophils % % Basophils % % Neutrophils # (1.3-7.7) k/uL Lymphocytes # (1.0-4.8) k/uL Monocytes # (0-1.0) k/uL Eosinophils # (0-0.7) k/uL Basophils # (0-0.2) k/uL PT 10.3 (9.0-12.0) sec INR 1.0 (<1.2) APTT 22.2 (22.0-30.0) sec Sodium (137-145) mmol/L Potassium (3.5-5.1) mmol/L Chloride (98-107) mmol/L Carbon Dioxide (22-30) mmol/L Anion Gap mmol/L BUN (7-17) mg/dL Creatinine (0.52-1.04) mg/dL Est GFR (CKD-EPI)AfAm (>60 ml/min/1.73 sqM) Est GFR (CKD-EPI)NonAf (>60 ml/min/1.73 sqM) Glucose (74-99) mg/dL Plasma Lactic Acid Riccardo (0.7-2.0) mmol/L Calcium (8.4-10.2) mg/dL Phosphorus (2.5-4.5) mg/dL Magnesium (1.6-2.3) mg/dL Total Bilirubin (0.2-1.3) mg/dL AST (14-36) U/L ALT (9-52) U/L Alkaline Phosphatase (38-126) U/L Creatine Kinase (30-135) U/L Troponin I 0.030 (0.000-0.034) ng/mL Total Protein (6.3-8.2) g/dL Albumin (3.5-5.0) g/dL Lipase (23-300) U/L TSH (0.465-4.680) mIU/L Influenza Type A RNA Not Detected (Not Detectd) Influenza Type B (PCR) Not Detected (Not Detectd) 06/22/19 Range/Units 23:00 WBC (3.8-10.6) k/uL RBC (3.80-5.40) m/uL Hgb (11.4-16.0) gm/dL Hct (34.0-46.0) % MCV (80.0-100.0) fL MCH (25.0-35.0) pg MCHC (31.0-37.0) g/dL RDW (11.5-15.5) % Plt Count (150-450) k/uL Neutrophils % % Lymphocytes % % Monocytes % % Eosinophils % % Basophils % % Neutrophils # (1.3-7.7) k/uL Lymphocytes # (1.0-4.8) k/uL Monocytes # (0-1.0) k/uL Eosinophils # (0-0.7) k/uL Basophils # (0-0.2) k/uL PT (9.0-12.0) sec INR (<1.2) APTT (22.0-30.0) sec Sodium (137-145) mmol/L Potassium (3.5-5.1) mmol/L Chloride (98-107) mmol/L Carbon Dioxide (22-30) mmol/L Anion Gap mmol/L BUN (7-17) mg/dL Creatinine (0.52-1.04) mg/dL Est GFR (CKD-EPI)AfAm (>60 ml/min/1.73 sqM) Est GFR (CKD-EPI)NonAf (>60 ml/min/1.73 sqM) Glucose (74-99) mg/dL Plasma Lactic Acid Riccardo (0.7-2.0) mmol/L Calcium (8.4-10.2) mg/dL Phosphorus (2.5-4.5) mg/dL Magnesium (1.6-2.3) mg/dL Total Bilirubin (0.2-1.3) mg/dL AST (14-36) U/L ALT (9-52) U/L Alkaline Phosphatase (38-126) U/L Creatine Kinase (30-135) U/L Troponin I (0.000-0.034) ng/mL Total Protein (6.3-8.2) g/dL Albumin (3.5-5.0) g/dL Lipase 153 (23-300) U/L TSH (0.465-4.680) mIU/L Influenza Type A RNA (Not Detectd) Influenza Type B (PCR) (Not Detectd) - Radiology Data Radiology results: report reviewed (Chest x-ray reviewed from earlier negative, x-ray KUB negative for acute disease gallbladder ultrasound negative for acute disease), image reviewed Disposition Clinical Impression: Fever, Rhabdomyolysis, Dehydration Disposition: ADMITTED IP TO THIS HOSP Condition: Good Is patient prescribed a controlled substance at d/c from ED?: No
[2019-06-22 23:33] LABS: Basophils % (A) 0 %; Eosinophils % (A) 0 %; HCT 37.5 % (34.0-46.0); HGB 12.2 gm/dL (11.4-16.0); Lymphocytes # (A) 1.4 k/uL (1.0-4.8); Lymphocytes % (A) 16 %; MCHC 32.5 g/dL (31.0-37.0); MCV 89.2 fL (80.0-100.0); Monocytes # (A) 0.5 k/uL (0-1.0); Monocytes % (A) 6 %; Neutrophils # (A) 6.6 k/uL (1.3-7.7); Neutrophils % (A) 75 %; Platelet Count 127 k/uL (150-450); RDW 13.4 % (11.5-15.5); WBC 8.8 k/uL (3.8-10.6)
[2019-06-22 23:48] LABS: Albumin 3.6 g/dL (3.5-5.0); Calcium 8.6 mg/dL (8.4-10.2); Magnesium 1.9 mg/dL (1.6-2.3); Phosphorus 2.5 mg/dL (2.5-4.5); Potassium 3.7 mmol/L (3.5-5.1); Total Bilirubin 0.8 mg/dL (0.2-1.3); Total Protein 5.8 g/dL (6.3-8.2)
[2019-06-22 23:51] LABS: Partial Thromboplastin Time 22.2 sec (22.0-30.0); Prothrombin Time 10.3 sec (9.0-12.0)
--- NOTE | 2019-06-23 01:25 | US ---
EXAM: US Abdomen Limited, Right Upper Quadrant CLINICAL HISTORY: Pain TECHNIQUE: Real-time ultrasound of the right upper quadrant with image documentation. COMPARISON: No relevant prior studies available. FINDINGS: Liver: Liver measures 11.7 cm in longitudinal dimension. No intrahepatic bile duct dilation. Gallbladder: Gallbladder wall measures about 2 mm in maximal thickness No gallstones. Common bile duct: Common bile duct is dilated up to 8 mm. No stones. Pancreas: Unremarkable as visualized. Right kidney: Right kidney measures about 9.3 cm in longitudinal dimension, No stones. No hydronephrosis. Other findings: . IMPRESSION: No acute findings. Mild dilatation of the common duct is likely patient's age.
[2019-06-23] MEDS: SODIUM CHLORIDE 0.9% 500 ML 500 ML IV SCH ×3 (01:31→03:07)
[2019-06-23] MEDS: SODIUM CHLORIDE 0.9% 1,000 ML IV SCH ×4 (04:35→19:19)
--- NOTE | 2019-06-23 05:59 | XR ---
EXAM: XR Abdomen, 1 View CLINICAL HISTORY: abdominal pain TECHNIQUE: Frontal supine view of the abdomen/pelvis. COMPARISON: Gallbladder ultrasound from today. FINDINGS: Gastrointestinal tract: Nonspecific bowel gas pattern. No dilation. Bones/joints: Moderate upper lumbar scoliosis convexed to the right. Osteopenia. Tubes, lines and devices: Tip of a [employer] shunt coils in central abdomen and travels to left mid abdomen. IMPRESSION: Nonspecific bowel gas pattern
[2019-06-23 06:12] LABS: Amorphous Sediment,Urine Rare /hpf; Appearance,Urine Clear (Clear); Bacteria,Urine Rare /hpf; Bilirubin,Urine Negative (Negative); Blood,Urine Trace (Negative); Color,Urine Light Yellow; Glucose,Urine (UA) Negative (Negative); Hyaline Casts,Urine 1 /lpf (0-2); Ketones,Urine Negative (Negative); Leukocyte Esterase,Urine Negative (Negative); Mucus,Urine Rare /hpf; Nitrite,Urine Negative (Negative); Protein,Urine Negative (Negative); RBC,Urine <1 /hpf (0-5); Specific Gravity,Urine 1.006 (1.001-1.035); Squamous Epithelial Cell,Urine <1 /hpf (0-4); Urobilinogen,Urine <2.0 mg/dL (<2.0); WBC,Urine <1 /hpf (0-5)
[2019-06-23] MEDS ORDERED: FAMOTIDINE 20 MG TAB PO SCH (09:00)
[2019-06-23] MEDS ORDERED: PANTOPRAZOLE 40 MG/10 ML VIAL IV SCH (09:00)
[2019-06-23] MEDS: ESCITALOPRAM 20 MG TAB PO SCH ×2 (10:11→21:37)
[2019-06-23] MEDS: LEVOTHYROXINE 75 MCG TAB PO SCH (10:11)
[2019-06-23] MEDS: buPROPion XL 300 MG TAB.ER.24H PO SCH (10:11)
[2019-06-23] MEDS: busPIRone HCl 10 MG TAB PO SCH ×3 (10:11→21:37)
[2019-06-23] MEDS: LOSARTAN 50 MG TAB PO SCH (10:11)
[2019-06-23] MEDS: METOPROLOL TARTRATE 25 MG TAB PO SCH ×2 (10:11→21:41)
[2019-06-23] MEDS: IOPAMIDOL-300 CONTRAST 30 ML VIAL (ORAL USE) PO PRN ×2 (11:50→12:40)
[2019-06-23] MEDS: metroNIDAZOLE-NS PMX 500 MG in SALINE 1 100ML.BAG IVPB SCH ×3 (11:52→23:06)
--- NOTE | 2019-06-23 14:45 | CT ---
EXAMINATION TYPE: CT abdomen pelvis w con DATE OF EXAM: 06/23/2019 COMPARISON: Ultrasound gallbladder 06/23/2019 HISTORY: Fever, Weak, bilateral abdominal pain CT DLP: 613.1 mGycm Automated exposure control for dose reduction was used. TECHNIQUE: Helical acquisition of images from the lung bases through the pelvis have been completed. CONTRAST: Performed with Oral Contrast and with IV Contrast, patient injected with 80 mL of Isovue 300. FINDINGS: There is motion on the exam. Tubing is present likely due to ventriculoperitoneal shunt tub e within the pelvis Patient is post median sternotomy. There is a small right pleural effusion greater than left with so me associated dependent atelectatic changes. Coronary artery calcifications are present. Suspect a sm all hiatal hernia may be present, there is thickening of the distal esophagus. AORTA: No significant abnormality is appreciated. LIVER/GB: No significant abnormality is appreciated. PANCREAS: No significant abnormality is seen. SPLEEN: No significant abnormality is seen. ADRENALS: No significant abnormality is seen. KIDNEYS: No significant abnormality is seen. REPRODUCTIVE ORGANS: No significant abnormality is seen BOWEL: Diffuse colonic wall thickening is present. FREE AIR: No Free Air visible. ASCITES: None visible. PELVIC ADENOPATHY: None visualized. RETROPERITONEAL ADENOPATHY: No Retroperitoneal Adenopathy visible. URINARY BLADDER: Urinary bladder is urine distended. OSSEOUS STRUCTURES: There is a spinal curvature. Multilevel degenerative disc changes are present as sociated facet arthropathy. IMPRESSION: CORRELATE FOR COLITIS. ADDITIONAL FINDINGS DESCRIBED ABOVE.
--- NOTE | 2019-06-23 15:01 | EEG ---
ELECTROENCEPHALOGRAM REPORT DATE OF TESTIN06/23/2019 CLINICAL PROBLEM: The patient was brought into the emergency room for evaluation of severe weakness and persistent shaking. The patient, her family stated that she had been having tremors all day and was unable to eat or drink. EEG was requested to rule out epileptiform activity. TYPE OF RECORDING: Bedside tracing using the 10-20 international electrode placement system. No sedation was given prior to the beginning of this recording. FINDINGS: The background of this tracing is seen with a moderate amount of EMG artifacts that somewhat compromise the quality of this tracing. Otherwise, there is appearance of a symmetric posterior alpha rhythm of 8-9 hertz that attenuates on eye opening and returns upon eye closure. Photic stimulation elicits a driving response symmetrically. Hyperventilation is not performed in this recording. There is no definitive sleep architecture seen. There is no background asymmetry, ictal or interictal patterns appreciated. IMPRESSION: This is a normal awake electroencephalogram without background asymmetry or epileptiform discharges. The quality of this tracing is compromised by copious EMG artifacts. Clinical correlation is advised. HU / HUAN: [id number] /
--- NOTE | 2019-06-23 15:20 | P.HPIM ---
History of Present Illness H&P Date: 06/23/19 Chief Complaint: Weakness This is a 68-year-old female patient of Dr. Heriberto Preciado and Dr. Dickinson with past medical history of myocardial infarction with CABG 5 vessels 15 years ago, hypothyroidism, hypertension, hyperlipidemia, Alzheimer's dementia, normal pressure hydrocephalus status post ventriculoperitoneal shunt placement 04/22/2019 at [facility] with Dr. Duarte, recurrent depression. Patient states she has tremors and had this worked up by Dr. Mcgraw. These become significantly worse and causing tremors and her face as well a significant shaking to her hands. She states she has been feeling funny for the past 1-2 weeks. She denies any recent fall or if she denies any headache, no blurred vision. She is complaining of abdominal pain to the sides and metal. She also complains of fever and lightheadedness. Patient complains of runny watery stool that started yesterday since her first trip to the emergency center. She states she has had 4 stools since then and denies any blood in her stools. She denies any history of C. difficile colitis. Daughter gives history that patient is been under a lot of stress and that the patient's is actively dying in a facility. Daughter states temperature at home was 102.8. Patient presented to [facility] emergency center for evaluation. Patient initially presented at 11:47 in the morning by EMS for confusion for 3 days, tremors and burning with urination. Temperature was 99.6, vital signs were stable, white count was 10.9, white count 145, creatinine 1.09, blood sugar 133. Troponin was negative. Urinalysis negative for infection. There was a small amount of blood. Urine drug screen was negative. CAT scan of the brain showed no acute intracranial abnormality. Stable positioning of the right HEAD B[employer]PERATOR shunt catheter. No hydrocephalus.. Chest x-ray shows no acute cardiopulmonary process. The patient was stable while in the emergency center and she was discharged home with plan for daughter to stay with her the next couple days and make a follow- up appointment with neurosurgeon at [facility]. The patient returned at 10 PM due to severe weakness, persistent shaking, unable to eat or drink anything, unable to stand or ambulate, fevers and abdominal pain. On this visit, patient was found have a fever 102.6, heart rate 111, blood pressure 138/ 62 and pulse ox 99%. EKG was sinus rhythm with T-wave elevation in aVR. Repeat white count was at 8.8, sodium 133, lactic acid 1, CK 1965, TSH 2.190. Troponin 0.030. Influenza testing negative. Lipase 153. She was given 3 L of IV fluid total. Patient was started on IV fluids, Tylenol and ibuprofen and admitted to the [facility] floor. Ultrasound of gallbladder showed mild dilatation of common duct is likely patient's age. CT abdomen and pelvis with contrast reveals colitis. EEG was normal. Review of Systems Constitutional: Reports chills, Reports fatigue, Reports fever, Reports lethargy, Reports malaise, Reports poor appetite, Reports weakness Ears, nose, mouth and throat: Denies dysphagia, Denies mouth pain, Denies nasal congestion, Denies nasal discharge, Denies vertigo Cardiovascular: Reports lightheadedness, Denies chest pain, Denies leg edema, Denies syncope Respiratory: Denies cough, Denies cough with sputum, Denies dyspnea, Denies excessive sputum, Denies hemoptysis, Denies home oxygen, Denies wheezing Gastrointestinal: Reports abdominal pain, Reports diarrhea, Reports loss of appetite, Denies nausea, Denies vomiting Genitourinary: Denies dysuria, Denies hematuria, Denies urgency, Denies urinary frequency Musculoskeletal: Reports gait dysfunction, Reports muscle weakness, Denies myalgias Integumentary: Denies pruritus, Denies rash, Denies wounds Neurological: Reports change in mentation, Reports confusion, Reports gait dys function, Reports tremors, Reports vertigo, Denies aphasia, Denies numbness, Denies seizures, Denies weakness Psychiatric: Denies anxiety, Denies depression Endocrine: Denies fatigue, Denies weight change Past Medical History Past Medical History: Chest Pain / Angina, Hyperlipidemia, Hypertension, Myocardial Infarction ([place]), Sleep Apnea/CPAP/BIPAP, Thyroid Disorder Additional Past Medical History / Comment(s): Short-term memory loss Last Myocardial Infarction Date:: 2014 History of Any Multi-Drug Resistant Organisms: None Reported Past Surgical History: Coronary Bypass/CABG Additional Past Surgical History / Comment(s): Coronary artery bypass graft 5 vessel 15 years ago, less knee arthroscopically, right shoulder surgery, sleep apnea surgery, hysterectomy for dysfunctional uterine bleeding. NPH- shunt placed March 2019, Alzheimers Past Anesthesia/Blood Transfusion Reactions: No Reported Reaction Past Psychological History: Anxiety, Depression Smoking Status: Never smoker Past Alcohol Use History: None Reported Additional Past Alcohol Use History / Comment(s): The patient is a lifelong nonsmoker. No marijuana, street drug or alcohol use. Patient was at home with her . She does not use walker or cane. No nebulizer oxygen or CPAP. Andrea corea was on CPAP many years ago. Past Drug Use History: None Reported - Past Family History Father Additional Family Medical History / Comment(s): Father at age 80 with history of rectal cancer and coronary artery disease. Mother Additional Family Medical History / Comment(s): Mother at age 71 from scleroderma. Brother(s) Additional Family Medical History / Comment(s): Patient has 2 brothers. One at age 61 from a myocardial infarction. One is alive with no major medical problems. Medications and Allergies Home Medications Medication Instructions Recorded Confirmed Type Atorvastatin [Lipitor] 80 mg PO HS 02/26/19 06/22/19 History Donepezil [Aricept] 10 mg PO HS 02/26/19 06/22/19 History Escitalopram [Lexapro] 20 mg PO BID 02/26/19 06/22/19 History Levothyroxine Sodium [Synthroid] 75 mcg PO DAILY 02/26/19 06/22/19 History Losartan Potassium [Cozaar] 50 mg PO DAILY 02/26/19 06/22/19 History buPROPion HCL [Wellbutrin XL] 300 mg PO DAILY 02/26/19 06/22/19 History busPIRone HCL 15 mg PO TID 02/26/19 06/22/19 History clonazePAM [KlonoPIN] 1 mg PO HS 02/26/19 06/22/19 History Famotidine [Pepcid] 20 mg PO BID 06/22/19 06/22/19 History Metoprolol Tartrate [Lopressor] 25 mg PO BID 06/22/19 06/22/19 History Allergies Allergy/AdvReac Type Severity Reaction Status Date / Time hydromorphone [From Dilaudid] Allergy Anaphylaxis Verified 06/22/19 11:35 Physical Exam Vitals: Vital Signs Temp Pulse Resp BP Pulse Ox 06/23/19 08:20 98.6 F 61 16 108/61 100 06/23/19 07:28 98.6 F 108/61 100 06/23/19 05:17 61 16 118/70 97 06/23/19 03:40 98 F 65 16 135/69 98 06/23/19 01:05 99.6 F 77 16 128/84 100 06/22/19 22:16 102.6 F H 111 H 20 138/62 99 Intake and Output 06/22/19 06/23/19 06/23/19 22:59 06:59 14:59 Other: Weight 50.349 kg Gen: This is a 68-year-old female. She is resting in bed and appears to be comfortable. Significant tremor is noted to her face and bilateral upper extremities. Daughter is at bedside. HEENT: Head is atraumatic, normocephalic. Pupils equal, round. Sclerae is anicteric. NECK: Supple. No JVD. No lymphadenopathy. No thyromegaly. LUNGS: Clear to auscultation. No wheezes or rhonchi. No intercostal retractions. HEART: Regular rate and rhythm. Systolic murmur. ABDOMEN: Soft. Bowel sounds are present. No masses. No tenderness. EXTREMITIES: No pedal edema. No calf tenderness. Dorsalis pedis +2 bilaterally. NEUROLOGICAL: Patient is awake, alert and oriented x3. Cranial nerves 2 through 12 are grossly intact. Noted short-term memory deficits. Results CBC & Chem 7: 06/22/19 23:00 06/22/19 23:00 Labs: Abnormal Lab Results - Last 24 Hours (Table) 06/22/19 06/22/19 06/23/19 Range/Units 23:00 23:00 05:41 Plt Count 127 L (150-450) k/uL Sodium 133 L (137-145) mmol/L BUN 18 H (7-17) mg/dL Creatinine 1.05 H (0.52-1.04) mg/dL Glucose 109 H (74-99) mg/dL AST 61 H (14-36) U/L Creatine Kinase 1965 H* (30-135) U/L Total Protein 5.8 L (6.3-8.2) g/dL Urine Blood Trace H (Negative) Amorphous Sediment Rare H (None) /hpf Urine Bacteria Rare H (None) /hpf Urine Mucus Rare H (None) /hpf Thrombosis Risk Factor Assmnt - DVT/VTE Prophylaxis DVT/VTE Prophylaxis: Pharmacologic Prophylaxis ordered Assessment and Plan Plan: 1. Sepsis secondary to colitis. Patient started on Flagyl 500 mg every 8 hours, stool for C. difficile toxin, CT of the abdomen and pelvis as above. 2. Metabolic encephalopathy secondary to dehydration. Continue IV fluids. 3. 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 Consult with neurology. 4. Rhabdomyolysis secondary to tremors/shivers. Continue IV fluids. Recheck CK level. Hold atorvastatin. 5. History of coronary artery disease with five-vessel CABG. Continue losartan, Lopressor. 6. Hypertension. Continue losartan 50 mg daily, Lopressor 25 mg twice daily. 7. Hyperlipidemia. Hold Lipitor. 8. Hypothyroidism. Continue levothyroxine 75 g daily. 9. Alzheimer dementia Continue Aricept 10 mg at bedtime. 10. Recurrent depression and generalized anxiety disorder. Continue Lexapro 20 mg twice daily, clonazepam 1 mg at bedtime, Wellbutrin 300 mg daily. 11. Normal pressure hydrocephalus status post HEAD [employer] OPERATOR shunt at [facility] in March 2019, stable. No abnormality seen on CAT scan. 12. DVT prophylaxis. Lovenox subcu. 13. Gastroesophageal reflux disease, GI prophylaxis. Pepcid 20 g twice daily. Patient will be admitted to the hospital for a minimum of 2 night stay. Discharge plan: To be determined. PT and OT consults requested. Impression and plan of care have been directed as dictated by the signing physician. Izzy Rossi nurse practitioner acting as scribe for signing physician.
[2019-06-23] MEDS: ACETAMINOPHEN TAB 325 MG TAB PO PRN ×2 (16:47→23:05)
--- NOTE | 2019-06-23 17:46 | P.CNNES ---
History of Present Illness Consult date: 06/23/19 Requesting physician: Izzy Rossi Reason for Consult: Tremor Chief complaint: Tremor History of Present Illness: This is a 68 RH female who sees Dr. Carmichael in outpatient neurology for dementia and tremor. Per inpatient medical records review, she carries a diagnosis of Alzheimer's dementia and NPH s/p DIRECTOR COMMUNICATIONS shunt placement at [facility] in 03/2019. She also has a history of tremor that has been worked up and is undergoing outpatient treatment by her usual neurologist. Over for the past couple weeks, she has been having significant emotional stress worrying about her who she states is at a usp. She was just in the ER the day prior to admission where she had a CT Head that did not show shunt misplacement, ICH, CVA or anything else acute. She was discharged. She then re-presented to the ER because of generalized weakness. She also had a temp of 102.6, so she was admitted to the hospital. CT abd/pelvis found colonic thickening, possibly consistent with colitis for which she was started on antibiotics. Her tremors have become more prominent over the past week or so. It involves her head, neck, voice, limbs and trunk, i.e. diffuse. It is present at rest and on action. She does not really know when or why her tremor started. She also does not remember what tremor meds Dr. Carmichael has tried her on in the past. Neurologically, she denies decreased level or loss of consciousness, headache, seizure, diplopia, facial droop, vertigo, bulbar symptoms or focal numbness/weakness. Review of Systems Unable to obtain due to dementia. Past Medical History Past Medical History: Chest Pain / Angina, Hyperlipidemia, Hypertension, Myocardial Infarction (OK), Sleep Apnea/CPAP/BIPAP, Thyroid Disorder Additional Past Medical History / Comment(s): Short-term memory loss Last Myocardial Infarction Date:: 2014 History of Any Multi-Drug Resistant Organisms: None Reported Past Surgical History: Coronary Bypass/CABG Additional Past Surgical History / Comment(s): Coronary artery bypass graft 5 vessel 15 years ago, less knee arthroscopically, right shoulder surgery, sleep apnea surgery, hysterectomy for dysfunctional uterine bleeding. NPH- shunt placed March 2019, Alzheimersue Past Anesthesia/Blood Transfusion Reactions: No Reported Reaction Past Psychological History: Anxiety, Depression Smoking Status: Never smoker Past Alcohol Use History: None Reported Additional Past Alcohol Use History / Comment(s): The patient is a lifelong nonsmoker. No marijuana, street drug or alcohol use. Patient was at home with her . She does not use walker or cane. No nebulizer oxygen or CPAP. Patient was on CPAP many years ago. Past Drug Use History: None Reported - Past Family History Father Additional Family Medical History / Comment(s): Father at age 80 with his tory of rectal cancer and coronary artery disease. Mother Additional Family Medical History / Comment(s): Mother at age 71 from scleroderma. Brother(s) Additional Family Medical History / Comment(s): Patient has 2 brothers. One at age 61 from a myocardial infarction. One is alive with no major medical problems. Medications and Allergies Home Medications Medication Instructions Recorded Confirmed Type Atorvastatin [Lipitor] 80 mg PO HS 02/26/19 06/22/19 History Donepezil [Aricept] 10 mg PO HS 02/26/19 06/22/19 History Escitalopram [Lexapro] 20 mg PO BID 02/26/19 06/22/19 History Levothyroxine Sodium [Synthroid] 75 mcg PO DAILY 02/26/19 06/22/19 History Losartan Potassium [Cozaar] 50 mg PO DAILY 02/26/19 06/22/19 History buPROPion HCL [Wellbutrin XL] 300 mg PO DAILY 02/26/19 06/22/19 History busPIRone HCL 15 mg PO TID 02/26/19 06/22/19 History clonazePAM [KlonoPIN] 1 mg PO HS 02/26/19 06/22/19 History Famotidine [Pepcid] 20 mg PO BID 06/22/19 06/22/19 History Metoprolol Tartrate [Lopressor] 25 mg PO BID 06/22/19 06/22/19 History Allergies Allergy/AdvReac Type Severity Reaction Status Date / Time hydromorphone [From Dilaudid] Allergy Anaphylaxis Verified 06/22/19 11:35 Physical Examination - Vital Signs Vital Signs: Vital Signs Temp Pulse Pulse Resp BP BP Pulse Ox 06/23/19 15:00 101.8 F H 75 16 163/72 94 L 06/23/19 10:13 98.3 F 87 16 134/85 06/23/19 09:30 87 16 06/23/19 08:20 98.6 F 61 16 108/61 100 06/23/19 07:28 98.6 F 108/61 100 06/23/19 05:17 61 16 118/70 97 06/23/19 03:40 98 F 65 16 135/69 98 06/23/19 01:05 99.6 F 77 16 128/84 100 06/22/19 22:16 102.6 F H 111 H 20 138/62 99 Intake and Output 06/23/19 06/23/19 06/23/19 06:59 14:59 22:59 Other: # Voids 2 # Bowel Movements 4 Gen NAD Pleasant and cooperative HEENT NCAT Sclera without icterus O/P clear Neck Supple No carotid bruit or meningismus Cor RRR no m/r/g Lungs CTAB Abd Soft NTND +BS Ext Warm to touch No edema Neuro MS A+Ox2 Normal fluency Able to follow all commands consistently Does not know date but knows where to look on the board in the room Knows President [place] and NADYA [place] CN PERRL VFF no APD EOMI no nystagmus or BEKAH No facial asymmetry Masseter's symmetric Hearing intact to normal voice bilaterally Speech not dysarthric Equal elevation of palate Tongue midline Sym shrug and SCM bilaterally Motor Normal bulk/tone without lead-pipe or cogwheeling rigidity No pronator or leg drift Diffuse head/neck/voice/truncal and appendicular resting and action tremor No asterixis, myoclonus or other adventitious movements Strength 5/5 sym throughout Sens Intact to LT x4 No neglect or extinction Coord No dysmetria on FTN bilaterally DTRs 2+/4 sym throughout Toes downgoing bilaterally No clonus at achilles Gait Deferred Results - Laboratory Findings CBC and BMP: 06/22/19 23:00 06/22/19 23:00 Abnormal Lab Findings: Abnormal Labs 06/22/19 06/22/19 06/23/19 23:00 23:00 05:41 Plt Count 127 L Sodium 133 L BUN 18 H Creatinine 1.05 H Glucose 109 H AST 61 H Creatine Kinase 1965 H* Total Protein 5.8 L Urine Blood Trace H Amorphous Sediment Rare H Urine Bacteria Rare H Urine Mucus Rare H 11/11/18 CSF tube 2 protein 52 RBC 4 nucleated cells 2 Abeta [address] Carmichael's office whose result I cannot see in EMR - Diagnostic Findings Additional findings: CT Head wo cont 06/22/19. Stable positioning of DIRECTOR COMMUNICATIONS shunt via right parietal approach. No hydrocephalus. No ICH. Nil acute. I have reviewed neuroimages myself. Assessment and Plan Assessment: Diffuse tremor, possibly BET exacerbated by acute illness and emotional stress. Other differential considerations include neuroleptic malignant syndrome with fever and elevated CK, though she does not have the classic lead-pipe rigidity nor is she on any conventional dopamine blockers. Another differential to keep in mind if her fever does not break with conventional treatment is ventriculitis given she does have a DIRECTOR COMMUNICATIONS shunt. However, she does not appear to have headache or meningismus. Plan: -Most conventional treatment options for tremor are sedating and titration is typically done as outpatient. If need be, could increase her clonazepam though would need to watch out for sedation and delirium, so I would prefer not adjusting her meds too aggressively while inpatient. -Trend CK; rehydrate. Would not initiate dopamine agonist at this time. -Antibiotics per primary team. May need ID involvement if her fever does not break. -Fine to continue donepezil 10mg po qd. -PT/OT. -Will follow up. -d/w patient in detail. All questions answered. Thank you for this consultation. Please call with ?. Time with Patient: Greater than 30 (Time spent in direct patient care, greater than 50% of which was spent in [id number] counseling and coordination of care: 70 minutes)
[2019-06-23] MEDS ORDERED: ATORVASTATIN 80 MG TAB PO SCH (21:00)
[2019-06-23] MEDS: clonazePAM 1 MG TAB PO SCH (21:37)
[2019-06-23] MEDS: DONEPEZIL 10 MG TAB PO SCH (21:41)
[2019-06-24] MEDS: SODIUM CHLORIDE 0.9% 1,000 ML IV SCH ×2 (04:00→19:09)
[2019-06-24] MEDS: LEVOTHYROXINE 75 MCG TAB PO SCH (06:17)
[2019-06-24] MEDS: ACETAMINOPHEN TAB 325 MG TAB PO PRN ×2 (07:35→21:30)
[2019-06-24] MEDS: metroNIDAZOLE-NS PMX 500 MG in SALINE 1 100ML.BAG IVPB SCH ×3 (07:37→23:49)
[2019-06-24 08:31] LABS: HCT 36.5 % (34.0-46.0); HGB 11.9 gm/dL (11.4-16.0); MCH 29.5 pg (25.0-35.0); MCHC 32.5 g/dL (31.0-37.0); MCV 90.9 fL (80.0-100.0); Platelet Count 131 k/uL (150-450); RBC 4.02 m/uL (3.80-5.40); RDW 13.7 % (11.5-15.5)
[2019-06-24 08:47] LABS: Albumin 2.9 g/dL (3.5-5.0); Calcium 8.1 mg/dL (8.4-10.2); Total Bilirubin 0.7 mg/dL (0.2-1.3); Total Protein 5.2 g/dL (6.3-8.2)
[2019-06-24 09:36] LABS: Glucose,Whole Blood 100 mg/dL (75-99)
[2019-06-24] MEDS ORDERED: POTASSIUM CHLORIDE ER 20 MEQ TAB.ER PO STA (09:45)
[2019-06-24] MEDS: FAMOTIDINE 20 MG TAB PO SCH (10:00)
[2019-06-24] MEDS: ESCITALOPRAM 20 MG TAB PO SCH ×2 (10:00→21:30)
[2019-06-24] MEDS: busPIRone HCl 10 MG TAB PO SCH ×3 (10:00→21:29)
[2019-06-24] MEDS: buPROPion XL 300 MG TAB.ER.24H PO SCH (10:00)
[2019-06-24] MEDS: LOSARTAN 50 MG TAB PO SCH (10:00)
[2019-06-24] MEDS: METOPROLOL TARTRATE 25 MG TAB PO SCH ×2 (10:01→21:30)
[2019-06-24] MEDS: ENOXAPARIN 40 MG/0.4 ML SYRINGE SQ SCH (10:01)
--- NOTE | 2019-06-24 14:01 | P.PN ---
Subjective Progress Note Date: 06/24/19 This is a 68-year-old female patient of Dr. Heriberto Preciado and Dr. Dickinson with past medical history of myocardial infarction with CABG 5 vessels 15 years ago, hypothyroidism, hypertension, hyperlipidemia, Alzheimer's dementia, normal pressure hydrocephalus status post ventriculoperitoneal shunt placement 04/22/2019 at [facility] with Dr. Duarte, recurrent depression. Patient states she has tremors and had this worked up by Dr. Mcgraw. These become significantly worse and causing tremors and her face as well a significant shaking to her hands. She states she has been feeling funny for the past 1-2 weeks. She denies any recent fall or if she denies any headache, no blurred vision. She is complaining of abdominal pain to the sides and metal. She also complains of fever and lightheadedness. Patient complains of runny watery stool that started yesterday since her first trip to the emergency center. She states she has had 4 stools since then and denies any blood in her stools. She denies any history of C. difficile colitis. Daughter gives history that patient is been under a lot of stress and that the patient's is actively dying in a facility. Daughter states temperature at home was 102.8. Patient presented to [facility] emergency center for evaluation. Patient initially presented at 11:47 in the morning by EMS for confusion for 3 days, tremors and burning with urination. Temperature was 99.6, vital signs were stable, white count was 10.9, white count 145, creatinine 1.09, blood sugar 133. Troponin was negative. Urinalysis negative for infection. There was a small amount of blood. Urine drug screen was negative. CAT scan of the brain showed no acute intracranial abnormality. Stable positioning of the right PERSONAL CARE AIDE shunt catheter. No hydrocephalus.. Chest x-ray shows no acute cardiopulmonary process. The patient was stable while in the emergency center and she was discharged home with plan for daughter to stay with her the next couple days and make a follow- up appointment with neurosurgeon at [facility]. The patient returned at 10 PM due to severe weakness, persistent shaking, unable to eat or drink anything, unable to stand or ambulate, fevers and abdominal pain. On this visit, patient was found have a fever 102.6, heart rate 111, blood pressure 138/62 and pulse ox 99%. EKG was sinus rhythm with T-wave elevation in aVR. Repeat white count was at 8.8, sodium 133, lactic acid 1, CK 1965, TSH 2.190. Troponin 0.030. Influenza testing negative. Lipase 153. She was given 3 L of IV fluid total. Patient was started on IV fluids, Tylenol and ibuprofen [facility] Ultrasound of gallbladder showed mild dilatation of common duct is likely patient's age. CT abdomen and pelvis with contrast reveals colitis. EEG was normal. 06/24: Patient has been seen by Dr. Duffy for diffuse tremor possibly benign essential tremor exacerbated by acute illness and emotional stress. Other cons iderations include neuroleptic malignant syndrome with fever and elevated CK and ventriculitis if needed clonazepam could be increased to control tremor avoiding sedation and would recommend outpatient adjustments. He recommends holding dopamine agonist drugs and okay to continue Aricept. Repeat lab work shows a normal CBC except for platelet count of 131. Sodium 135, potassium 3.0, chloride 108, CO2 17, BUN 11 and creatinine 0.94. AST 72. Blood sugars 100- 108. Calcium 8.1. Repeat CK 1914. Potassium has been replaced. Temperature max 100.9 this morning. She did have a temperature of 101.8 at 3 PM yesterday. This morning patient broke out and severe diaphoresis and after that her tremors have been much improved. She continues to have mid abdominal pain and decreased appetite. She is passing gas. She also states she continues to have diarrhea and specimen is to be sent today for C. difficile colitis. Today she has only had 1 stool this far. She did notice a little bit of blood in her stool this morning. She has been ambulating in the unit without difficulty. The patient also found to have a rectal prolapse that is currently in place. Daughter has been informed of this continues to be a problem that surgical follow-up should be done but no need at this point. Diet changed to lactose-free. Objective - Vital Signs Vital signs: Vital Signs Temp 100.9 F H 06/24/19 07:00 Pulse 76 06/24/19 08:13 Resp 16 06/24/19 08:13 BP 145/81 06/24/19 07:00 Pulse Ox 96 06/24/19 07:00 Intake & Output 06/23/19 06/24/19 06/24/19 18:59 06:59 18:59 Intake Total 970 Output Total 1 Balance 969 Intake: Intake, IV Titration 850 Amount Sodium Chloride 0.9% 1, 750 000 ml @ 75 mls/hr IV . [id number] [facility] Rx#:[id number] metroNIDAZOLE-NS PMX 500 100 mg In Saline 1 100ml.bag @ 100 mls/hr IVPB Q8HR [facility] Rx#:[id number] Oral 120 Output: Urine/Stool Mix 1 Other: Voiding Method Bedside Commode Bedside Commode # Voids 2 1 # Bowel Movements 2 - Exam Review of Systems Constitutional: Reports chills, Reports fatigue, Reports fever, Reports lethargy, Reports malaise, Reports poor appetite, Reports weakness Ears, nose, mouth and throat: Denies dysphagia, Denies mouth pain, Denies nasal congestion, Denies nasal discharge, Denies vertigo Cardiovascular: Reports lightheadedness, Denies chest pain, Denies leg edema, Denies syncope Respiratory: Denies cough, Denies cough with sputum, Denies dyspnea, Denies excessive sputum, Denies hemoptysis, Denies home oxygen, Denies wheezing Gastrointestinal: Reports abdominal pain, Reports diarrhea, Reports loss of appetite, Denies nausea, Denies vomiting--unchanged Genitourinary: Denies dysuria, Denies hematuria, Denies urgency, Denies urinary frequency Musculoskeletal: Reports gait dysfunction, Reports muscle weakness, Denies myalgias Integumentary: Denies pruritus, Denies rash, Denies wounds Neurological: Reports change in mentation, Reports confusion, Reports gait dysfunction, Reports tremors, Reports vertigo, Denies aphasia, Denies numbness, Denies seizures, Denies weakness Psychiatric: Denies anxiety, Denies depression Endocrine: Denies fatigue, Denies weight change Gen: This is a 68-year-old female. She is resting in bed and appears to be comfortable. Tremor is much improved from yesterday. Daughter is at bedside. HEENT: Head is atraumatic, normocephalic. Pupils equal, round. Sclerae is anicteric. NECK: Supple. No JVD. No lymphadenopathy. No thyromegaly. LUNGS: Clear to auscultation. No wheezes or rhonchi. No intercostal retractions. HEART: Regular rate and rhythm. Systolic murmur. ABDOMEN: Soft. Bowel sounds are present. No masses. No tenderness. EXTREMITIES: No pedal edema. No calf tenderness. Dorsalis pedis +2 bilaterally. NEUROLOGICAL: Patient is awake, alert and oriented x3. Cranial nerves 2 through 12 are grossly intact. Noted short-term memory deficits. - Labs CBC & Chem 7: 06/24/19 07:57 06/24/19 07:57 Labs: Abnormal Lab Results - Last 24 Hours (Table) 06/24/19 Range/Units 07:57 Plt Count 131 L (150-450) k/uL Microbiology - Last 24 Hours (Table) 06/22/19 23:00 Blood Culture - Preliminary Blood No Growth after 24 hours 06/23/19 05:41 Urine Culture - Preliminary Urine,Catheterized Assessment and Plan Plan: 1. Sepsis secondary to colitis. Patient started on Flagyl 500 mg every 8 hours, stool for C. difficile toxin, CT of the abdomen and pelvis as above. 2. Metabolic encephalopathy secondary to dehydration. Continue IV fluids. 3. Benign essential tremor exacerbated by illness and stress. Consult with neurology appreciated. 4. Rhabdomyolysis secondary to tremors/shivers. Continue IV fluids. Recheck CK level. Hold atorvastatin. 5. History of coronary artery disease with five-vessel CABG. Continue losartan, Lopressor. 6. Hypertension. Continue losartan 50 mg daily, Lopressor 25 mg twice daily. 7. Hyperlipidemia. Hold Lipitor. 8. Hypothyroidism. Continue levothyroxine 75 g daily. 9. Alzheimer dementia Continue Aricept 10 mg at bedtime. 10. Recurrent depression and generalized anxiety disorder. Continue Lexapro 20 mg twice daily, clonazepam 1 mg at bedtime, Wellbutrin 300 mg daily. 11. Normal pressure hydrocephalus status post PERSONAL CARE AIDE shunt at [facility] in March 2019, stable. No abnormality seen on CAT scan. 12. DVT prophylaxis. Lovenox subcu. 13. Gastroesophageal reflux disease, GI prophylaxis. Pepcid 20 g twice daily. 14. Rectal prolapse, stable. Patient follow-up with general surgery if it becomes problematic. Discharge plan: Home with [facility]. PT and OT consults requested. Impression and plan of care have been directed as dictated by the signing physician. Izzy Rossi nurse practitioner acting as scribe for signing physician.
--- NOTE | 2019-06-24 16:54 | P.PN ---
Subjective Progress Note Date: 06/24/19 Principal diagnosis: Tremor Elevated CK Had fever this am, then broke, was diaphoretic and tremor much better. Then started shaking again this pm. Currently afebrile. Per RN and patient she has been up and ambulating to bathroom without difficulty. No new neuro c/o. Objective - Vital Signs Vital signs: Vital Signs Temp 98.4 F 06/24/19 15:00 Pulse 63 06/24/19 16:00 Resp 16 06/24/19 16:00 BP 174/74 06/24/19 15:00 Pulse Ox 97 06/24/19 15:00 Intake & Output 06/23/19 06/24/19 06/24/19 18:59 06:59 18:59 Intake Total 970 Output Total 1 Balance 969 Intake: Intake, IV Titration 850 Amount Sodium Chloride 0.9% 1, 750 000 ml @ 75 mls/hr IV . [id number] [facility] Rx#:[id number] metroNIDAZOLE-NS PMX 500 100 mg In Saline 1 100ml.bag @ 100 mls/hr IVPB Q8HR [facility] Rx#:[id number] Oral 120 Output: Urine/Stool Mix 1 Other: Voiding Method Bedside Commode Bedside Commode # Voids 2 1 2 # Bowel Movements 2 1 - Exam Gen NAD Pleasant and cooperative MS A+Ox2 Normal fluency Able to follow all commands consistently and articulate medical history CN II-XII grossly intact no nystagmus Motor Normal bulk/tone without lead-pipe or cogwheeling rigidity No pronator or leg drift Diffuse head/neck/voice/truncal and appendicular resting and action tremor No asterixis, myoclonus or other adventitious movements THIBODEAUX x4 Sens Intact to LT x4 Coord No dysmetria on FTN bilaterally DTRs 2+/4 sym throughout Gait Deferred - Labs CBC & Chem 7: 06/24/19 07:57 06/24/19 07:57 Labs: Abnormal Lab Results - Last 24 Hours (Table) 06/24/19 06/24/19 06/24/19 Range/Units 07:57 07:57 09:07 Plt Count 131 L (150-450) k/uL Sodium 135 L (137-145) mmol/L Potassium 3.0 L (3.5-5.1) mmol/L Chloride 108 H (98-107) mmol/L Carbon Dioxide 17 L (22-30) mmol/L Glucose 108 H (74-99) mg/dL POC Glucose (mg/dL) 100 H (75-99) mg/dL Calcium 8.1 L (8.4-10.2) mg/dL AST 72 H (14-36) U/L Creatine Kinase 1914 H* (30-135) U/L Total Protein 5.2 L (6.3-8.2) g/dL Albumin 2.9 L (3.5-5.0) g/dL Microbiology - Last 24 Hours (Table) 06/23/19 05:41 Urine Culture - Final Urine,Catheterized 06/22/19 23:00 Blood Culture - Preliminary Blood No Growth after 24 hours Assessment and Plan Assessment: Diffuse tremor, possibly BET exacerbated by acute illness and emotional stress. Elevated CK. Slowly trending down. Plan: -Discussed at length different treatment options for her essential tremor, which is likely excaerbated her fever/infection. Patient states she has been taking clonazepam 1mg po qhs for years without problem. Will add 0.5mg po qam and monitor for sedation, confusion, delirium and so forth. -Trend CK; rehydrate. Slightly better today. -Antibiotics per primary team. May need ID involvement if her fever does not break. -Fine to continue donepezil 10mg po qd. -PT/OT. -Will follow up. -d/w patient in detail. All questions answered. Thank you again for this consultation. Please call with ?. Time with Patient: Less than 30 (Time spent in direct patient care, greater than 50% of which was spent in [id number] counseling and coordination of care: 25 minutes)
[2019-06-24] MEDS: clonazePAM 1 MG TAB PO SCH (21:29)
[2019-06-24] MEDS: CHOLESTYRAMINE (WITH SUGAR) 4 GM PACKET PO SCH (21:29)
[2019-06-24] MEDS: DONEPEZIL 10 MG TAB PO SCH (21:30)
[2019-06-24] MEDS: LACTOBACILLUS ACIDOPH & BULGAR 1 EACH PACKET PO SCH (21:30)
[2019-06-25] MEDS: SODIUM CHLORIDE 0.9% 1,000 ML IV SCH ×2 (01:33→12:53)
[2019-06-25] MEDS: LEVOTHYROXINE 75 MCG TAB PO SCH (06:03)
[2019-06-25] MEDS: LOSARTAN 50 MG TAB PO SCH (08:28)
[2019-06-25] MEDS: metroNIDAZOLE-NS PMX 500 MG in SALINE 1 100ML.BAG IVPB SCH (08:28)
[2019-06-25] MEDS: clonazePAM 0.5 MG TAB PO SCH (08:28)
[2019-06-25] MEDS: ESCITALOPRAM 20 MG TAB PO SCH ×2 (08:28→20:53)
[2019-06-25] MEDS: LACTOBACILLUS ACIDOPH & BULGAR 1 EACH PACKET PO SCH ×2 (08:28→20:53)
[2019-06-25] MEDS: buPROPion XL 300 MG TAB.ER.24H PO SCH (08:28)
[2019-06-25] MEDS: FAMOTIDINE 20 MG TAB PO SCH (08:28)
[2019-06-25] MEDS: ENOXAPARIN 40 MG/0.4 ML SYRINGE SQ SCH (08:28)
[2019-06-25] MEDS: METOPROLOL TARTRATE 25 MG TAB PO SCH ×2 (08:28→20:53)
[2019-06-25] MEDS: busPIRone HCl 10 MG TAB PO SCH ×3 (08:29→20:53)
[2019-06-25] MEDS: CHOLESTYRAMINE (WITH SUGAR) 4 GM PACKET PO SCH ×2 (08:29→17:12)
[2019-06-25 08:30] LABS: Albumin 3.1 g/dL (3.5-5.0); Calcium 8.4 mg/dL (8.4-10.2); Total Bilirubin 0.7 mg/dL (0.2-1.3); Total Protein 5.4 g/dL (6.3-8.2)
[2019-06-25 08:45] LABS: Potassium 3.1 mmol/L (3.5-5.1)
--- NOTE | 2019-06-25 10:20 | P.PN ---
Subjective Progress Note Date: 06/25/19 Principal diagnosis: Tremor Elevated CK Had clonazepam 0.5mg this am around an hour prior to my visit. Less shaky. A little sleepy but no confusion, headache or myalgias. No other neuro c/o. Objective - Vital Signs Vital signs: Vital Signs Temp 98.0 F 06/25/19 07:00 Pulse 59 L 06/25/19 07:00 Resp 15 06/25/19 07:00 BP 167/77 06/25/19 07:00 Pulse Ox 98 06/25/19 07:00 Intake & Output 06/24/19 06/25/19 06/25/19 18:59 06:59 18:59 Intake Total 180 1200 360 Balance 180 1200 360 Intake: Intake, IV Titration 1200 Amount Sodium Chloride 0.9% 1, 1200 000 ml @ 75 mls/hr IV . [id number] [facility] Rx#:[id number] Oral 180 360 Other: Voiding Method Bedside Commode Bedside Commode # Voids 2 3 # Bowel Movements 1 3 - Exam Gen NAD Pleasant and cooperative MS Sleeping but easily arousable to tactile stim Normal fluency Able to follow all commands consistently CN II-XII grossly intact no nystagmus Motor Normal bulk/tone without lead-pipe or cogwheeling rigidity No pronator or leg drift Diffuse head/neck/voice/truncal and appendicular resting and action tremor, better than yesterday THIBODEAUX x4 Sens Intact to LT x4 Coord No dysmetria on FTN bilaterally DTRs 2+/4 sym throughout Gait Deferred - Labs CBC & Chem 7: 06/24/19 07:57 06/25/19 07:44 Labs: Abnormal Lab Results - Last 24 Hours (Table) 06/25/19 06/25/19 Range/Units 07:44 07:44 Sodium 136 L (137-145) mmol/L Potassium 3.1 L 3.1 L (3.5-5.1) mmol/L Carbon Dioxide 20 L (22-30) mmol/L Glucose 100 H (74-99) mg/dL AST 78 H (14-36) U/L Creatine Kinase 1398 H* (30-135) U/L Total Protein 5.4 L (6.3-8.2) g/dL Albumin 3.1 L (3.5-5.0) g/dL Microbiology - Last 24 Hours (Table) 06/22/19 23:00 Blood Culture - Preliminary Blood No Growth after 48 hours 06/23/19 16:47 Blood Culture - Preliminary Blood No Growth after 24 hours 06/23/19 05:41 Urine Culture - Final Urine,Catheterized Assessment and Plan Assessment: Diffuse tremor, possibly BET exacerbated by acute illness and emotional stress. A bit better with extra clonazepam. Elevated CK. Do not have a primary neuro explanation. Somewhat limited with what we can do with peripheral nervous system work-up while in hospital. Plan: -Clonazepam 0.5mg in the morning and 1mg at night. Monitor for sedation, confusion, delirium, etc. -Trend CK; rehydrate. Still quite elevated. She does not c/o myalgias that often happen with inflammatory myopathy. If her CK does not come down despite medical management, she will need outpatient EMG. -Antibiotics per primary team. -Fine to continue donepezil 10mg po qd. -PT/OT. -Will follow up. -d/w patient in detail. All questions answered. Thank you again for this consultation. Please call with ?. Time with Patient: Less than 30 (Time spent in direct patient care, greater than 50% of which was spent in [id number] counseling and coordination of care: 25 minutes)
[2019-06-25] MEDS ORDERED: LEVOFLOXACIN 500MG-D5W PMX 500 MG in DEXTROSE/WATER 1 100ML.BAG IVPB SCH (11:00)
[2019-06-25] MEDS: POTASSIUM CHLORIDE ER 20 MEQ TAB.ER PO SCH ×2 (11:05→12:52)
[2019-06-25] MEDS: PIPERACILLIN-TAZOBACTAM 3.375 GM in SODIUM CHLORIDE 0.9% 100 ML IVPB SCH ×2 (12:52→14:36)
--- NOTE | 2019-06-25 13:32 | P.PN ---
Subjective Progress Note Date: 06/25/19 This is a 68-year-old female patient of Dr. Heriberto Preciado and Dr. 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 Duarte, recurrent depression. Patient states she has tremors and had this worked up by Dr. Mcgraw. These become significantly worse and causing tremors and her face as well a significant shaking to her hands. She states she has been feeling funny for the past 1-2 weeks. She denies any recent fall or if she denies any headache, no blurred vision. She is complaining of abdominal pain to the sides and metal. She also complains of fever and lightheadedness. Patient complains of runny watery stool that started yesterday since her first trip to the emergency center. She states she has had 4 stools since then and denies any blood in her stools. She denies any history of C. difficile colitis. Daughter gives history that patient is been under a lot of stress and that the patient's is actively dying in a facility. Daughter states temperature at home was 102.8. Patient presented to [facility] emergency center for evaluation. Patient initially presented at 11:47 in the morning by EMS for confusion for 3 days, tremors and burning with urination. Temperature was 99.6, vital signs were stable, white count was 10.9, white count 145, creatinine 1.09, blood sugar 133. Troponin was negative. Urinalysis negative for infection. There was a small amount of blood. Urine drug screen was negative. CAT scan of the brain showed no acute intracranial abnormality. Stable positioning of the right DRY MOLDER shunt catheter. No hydrocephalus.. Chest x-ray shows no acute cardiopulmonary process. The patient was stable while in the emergency center and she was discharged home with plan for daughter to stay with her the next couple days and make a follow- up appointment with neurosurgeon at [facility]. The patient returned at 10 PM due to severe weakness, persistent shaking, unable to eat or drink anything, unable to stand or ambulate, fevers and abdominal pain. On this visit, patient was found have a fever 102.6, heart rate 111, blood pressure 138/62 and pulse ox 99%. EKG was sinus rhythm with T-wave elevation in aVR. Repeat white count was at 8.8, sodium 133, lactic acid 1, CK 1965, TSH 2.190. Troponin 0.030. Influenza testing negative. Lipase 153. She was given 3 L of IV fluid total. Patient was started on IV fluids, Tylenol and ibuprofen [facility] Ultrasound of gallbladder showed mild dilatation of common duct is likely patient's age. CT abdomen and pelvis with contrast reveals colitis. EEG was normal. 06/24: Patient has been seen by Dr. Duffy for diffuse tremor possibly benign essential tremor exacerbated by acute illness and emotional stress. Other cons iderations include neuroleptic malignant syndrome with fever and elevated CK and ventriculitis if needed clonazepam could be increased to control tremor avoiding sedation and would recommend outpatient adjustments. He recommends holding dopamine agonist drugs and okay to continue Aricept. Repeat lab work shows a normal CBC except for platelet count of 131. Sodium 135, potassium 3.0, chloride 108, CO2 17, BUN 11 and creatinine 0.94. AST 72. Blood sugars 100- 108. Calcium 8.1. Repeat CK 191. Potassium has been replaced. Temperature max 100.9 this morning. She did have a temperature of 101.8 at 3 PM yesterday. This morning patient broke out and severe diaphoresis and after that her tremors have been much improved. She continues to have mid abdominal pain and decreased appetite. She is passing gas. She also states she continues to have diarrhea and specimen is to be sent today for C. difficile colitis. Today she has only had 1 stool this far. She did notice a little bit of blood in her stool this morning. She has been ambulating in the unit without difficulty. The patient also found to have a rectal prolapse that is currently in place. Daughter has been informed of this continues to be a problem that surgical follow-up should be done but no need at this point. Diet changed to lactose-free. 06/25: Temperature max last 24 hours is 100.2, heart rate 59, blood pressure 167/77, pulse ox 90% on room air. The patient's tremor apparently worsened last evening. Dr. Duffy has added clonazepam 0.5 mg in the morning and continue the 1 mg at bedtime. Patient to be monitored for sedation and confusion, delirium. Repeat CK is 1398, sodium 136, potassium 3.1, chloride 107, CO2 20. AST 78. Potassium will be replaced. Patient states that she is feeling well this morn ing. She continues to have lower left-sided abdominal pain. She is eating very little. C. difficile toxin and rotavirus are negative. Physical therapy has recommended home with home care. Patient apparently developed sundowners during the night and pulled her IV out and was walking in the ramires. Patient states she has had continued diarrhea but according to nursing staff, stools are very soft. No watery stools. IV antibiotics will be changed to Zosyn. Anticipate possible discharge the next 24-48 hours. Objective - Vital Signs Vital signs: Vital Signs Temp 98.0 F 06/25/19 07:00 Pulse 59 L 06/25/19 07:00 Resp 15 06/25/19 07:00 BP 167/77 06/25/19 07:00 Pulse Ox 98 06/25/19 07:00 Intake & Output 06/24/19 06/25/19 06/25/19 18:59 06:59 18:59 Intake Total 180 1200 360 Balance 180 1200 360 Intake: Intake, IV Titration 1200 Amount Sodium Chloride 0.9% 1, 1200 000 ml @ 75 mls/hr IV . [id number] [facility] Rx#:[id number] Oral 180 360 Other: Voiding Method Bedside Commode Bedside Commode # Voids 2 3 # Bowel Movements 1 3 - Exam Review of Systems Constitutional: Denies chills, Reports fatigue, Reports fever, Reports lethargy, Reports malaise, Reports poor appetite, Reports weakness Ears, nose, mouth and throat: Denies dysphagia, Denies mouth pain, Denies nasal congestion, Denies nasal discharge, Denies vertigo Cardiovascular: Denies lightheadedness, Denies chest pain, Denies leg edema, Denies syncope Respiratory: Denies cough, Denies cough with sputum, Denies dyspnea, Denies excessive sputum, Denies hemoptysis, Denies home oxygen, Denies wheezing Gastrointestinal: Reports abdominal pain, Reports diarrhea, Reports loss of appetite, Denies nausea, Denies vomiting Genitourinary: Denies dysuria, Denies hematuria, Denies urgency, Denies urinary frequency Musculoskeletal: Reports gait dysfunction, Reports muscle weakness, Denies myalgias Integumentary: Denies pruritus, Denies rash, Denies wounds Neurological: Reports change in mentation, Reports confusion, Reports gait dysfunction, Reports tremors, Reports vertigo, Denies aphasia, Denies numbness, Denies seizures, Denies weakness Psychiatric: Denies anxiety, Denies depression Endocrine: Denies fatigue, Denies weight change Gen: This is a 68-year-old female. She is resting in a recliner and appears to be comfortable. Tremor is present mildly but improved since admission. Daughter is at bedside. HEENT: Head is atraumatic, normocephalic. Pupils equal, round. Sclerae is anicteric. NECK: Supple. No JVD. No lymphadenopathy. No thyromegaly. LUNGS: Clear to auscultation. No wheezes or rhonchi. No intercostal retractions. HEART: Regular rate and rhythm. Systolic murmur. ABDOMEN: Soft. Bowel sounds are present. No masses. No tenderness. EXTREMITIES: No pedal edema. No calf tenderness. Dorsalis pedis +2 bilaterally. NEUROLOGICAL: Patient is awake, alert and oriented x3. Cranial nerves 2 through 12 are grossly intact. Noted short-term memory deficits. - Labs CBC & Chem 7: 06/24/19 07:57 06/25/19 07:44 Labs: Abnormal Lab Results - Last 24 Hours (Table) 06/24/19 06/24/19 06/25/19 Range/Units 07:57 09:07 07:44 Sodium 135 L (137-145) mmol/L Potassium 3.0 L 3.1 L (3.5-5.1) mmol/L Chloride 108 H (98-107) mmol/L Carbon Dioxide 17 L (22-30) mmol/L Glucose 108 H (74-99) mg/dL POC Glucose (mg/dL) 100 H (75-99) mg/dL Calcium 8.1 L (8.4-10.2) mg/dL AST 72 H (14-36) U/L Creatine Kinase 1914 H* (30-135) U/L Total Protein 5.2 L (6.3-8.2) g/dL Albumin 2.9 L (3.5-5.0) g/dL Microbiology - Last 24 Hours (Table) 06/22/19 23:00 Blood Culture - Preliminary Blood No Growth after 48 hours 06/23/19 16:47 Blood Culture - Preliminary Blood No Growth after 24 hours 06/23/19 05:41 Urine Culture - Final Urine,Catheterized Assessment and Plan Plan: 1. Sepsis secondary to colitis. Flagyl discontinued and started Zosyn. Stool for rotavirus negative, stool for C. difficile toxin negative, CT of the abdomen and pelvis as above. 2. Metabolic encephalopathy secondary to dehydration. Continue IV fluids. 3. Benign essential tremor exacerbated by illness and stress. Consult with neurology appreciated. Clonazepam 0.5 mg in the morning added to her 1 mg at bedtime. 4. Rhabdomyolysis secondary to tremors/shivers. Continue IV fluids. Recheck CK level. Hold atorvastatin. 5. History of coronary artery disease with five-vessel CABG. Continue losartan, Lopressor. 6. Hypertension. Continue losartan 50 mg daily, Lopressor 25 mg twice daily. 7. Hyperlipidemia. Hold Lipitor. 8. Hypothyroidism. Continue levothyroxine 75 g daily. 9. Alzheimer dementia Continue Aricept 10 mg at bedtime. 10. Recurrent depression and generalized anxiety disorder. Continue Lexapro 20 mg twice daily, clonazepam 1 mg at bedtime, Wellbutrin 300 mg daily. 11. Normal pressure hydrocephalus status post DRY MOLDER shunt at [facility] in March 2019, stable. No abnormality seen on CAT scan. 12. DVT prophylaxis. Lovenox subcu. 13. Gastroesophageal reflux disease, GI prophylaxis. Pepcid 20 g twice daily. 14. Rectal prolapse, stable. Patient follow-up with general surgery if it becomes problematic. Discharge plan: Home with [facility] in the next 24-48 hours. Impression and plan of care have been directed as dictated by the signing physician. Izzy Rossi nurse practitioner acting as scribe for signing physician.
[2019-06-25] MEDS: DONEPEZIL 10 MG TAB PO SCH (20:53)
[2019-06-25] MEDS: clonazePAM 1 MG TAB PO SCH (20:53)
[2019-06-26] MEDS: PIPERACILLIN-TAZOBACTAM 3.375 GM in SODIUM CHLORIDE 0.9% 100 ML IVPB SCH ×3 (00:33→16:50)
[2019-06-26] MEDS: SODIUM CHLORIDE 0.9% 1,000 ML IV SCH ×2 (05:06→18:51)
[2019-06-26] MEDS: LEVOTHYROXINE 75 MCG TAB PO SCH (06:19)
[2019-06-26 07:20] LABS: HCT 34.4 % (34.0-46.0); HGB 11.4 gm/dL (11.4-16.0); MCH 30.4 pg (25.0-35.0); MCV 92.1 fL (80.0-100.0); Mean Platelet Volume 8.8; Platelet Count 136 k/uL (150-450); RBC 3.73 m/uL (3.80-5.40); RDW 14.9 % (11.5-15.5); WBC 5.9 k/uL (3.8-10.6)
[2019-06-26 07:31] LABS: Albumin 2.6 g/dL (3.5-5.0); Potassium 3.8 mmol/L (3.5-5.1); Total Bilirubin 0.7 mg/dL (0.2-1.3); Total Protein 4.6 g/dL (6.3-8.2)
--- NOTE | 2019-06-26 08:42 | P.PN ---
Subjective Progress Note Date: 06/26/19 Principal diagnosis: Tremor Elevated CK No acute events O/N. Patient slept more during the day with morning dose of clonazepam, but no confusion/delirium during the day. Episode of sundowning reported 2 days ago. On clonazepam 1mg po qhs that she has been taking chronically. Tremor not worse. No other neuro c/o. Objective - Vital Signs Vital signs: Vital Signs Temp 99.7 F H 06/26/19 06:59 Pulse 63 06/26/19 08:05 Resp 16 06/26/19 08:05 BP 142/67 06/26/19 06:59 Pulse Ox 94 L 06/26/19 06:59 Intake & Output 06/25/19 06/26/19 06/26/19 18:59 06:59 18:59 Intake Total 600 210 Balance 600 210 Intake: Oral 600 210 Other: Voiding Method Toilet Toilet # Voids 3 2 2 # Bowel Movements 1 1 - Exam Gen NAD Pleasant and cooperative MS Sleeping but easily arousable when I call her name Normal fluency Able to follow all commands consistently CN II-XII grossly intact no nystagmus Motor Normal bulk/tone without lead-pipe or cogwheeling rigidity No pronator or leg drift Diffuse head/neck/voice/truncal and appendicular resting and action tremor [place]IBODE[place] x4 Sens Intact to LT x4 Coord Not tested DTRs 2+/4 sym throughout Gait Deferred - Labs CBC & Chem 7: 06/26/19 06:55 06/26/19 06:55 Labs: Abnormal Lab Results - Last 24 Hours (Table) 06/25/19 06/25/19 06/26/19 Range/Units 07:44 07:44 06:55 RBC (3.80-5.40) m/uL Plt Count (150-450) k/uL Sodium 136 L 135 L (137-145) mmol/L Potassium 3.1 L 3.1 L (3.5-5.1) mmol/L Carbon Dioxide 20 L (22-30) mmol/L Creatinine 1.06 H (0.52-1.04) mg/dL Glucose 100 H (74-99) mg/dL Calcium 8.0 L (8.4-10.2) mg/dL AST 78 H 60 H (14-36) U/L Creatine Kinase 1398 H* 782 H (30-135) U/L Total Protein 5.4 L 4.6 L (6.3-8.2) g/dL Albumin 3.1 L 2.6 L (3.5-5.0) g/dL 06/26/19 Range/Units 06:55 RBC 3.73 L (3.80-5.40) m/uL Plt Count 136 L (150-450) k/uL Sodium (137-145) mmol/L Potassium (3.5-5.1) mmol/L Carbon Dioxide (22-30) mmol/L Creatinine (0.52-1.04) mg/dL Glucose (74-99) mg/dL Calcium (8.4-10.2) mg/dL AST (14-36) U/L Creatine Kinase (30-135) U/L Total Protein (6.3-8.2) g/dL Albumin (3.5-5.0) g/dL Microbiology - Last 24 Hours (Table) 06/22/19 23:00 Blood Culture - Preliminary Blood No Growth after 72 hours 06/23/19 16:47 Blood Culture - Preliminary Blood No Growth after 48 hours Assessment and Plan Assessment: Diffuse tremor, possibly BET exacerbated by acute illness and emotional stress. A bit better with extra clonazepam during the day. Elevated CK, trending down with IVF/medical management. Plan: -Clonazepam 0.5mg in the morning and 1mg at night. Monitor for sedation, confusion, delirium, etc. Once tremor better, can discontinue morning dose and continue her usual nighttime dose -CK coming down with medical management -Antibiotics per primary team -Fine to continue donepezil 10mg po qd -PT/OT -d/w patient in detail. All questions answered -Neurology will be available again on 06/29/19 at 8am. Please call with ?. Thank you again for this consultation. Time with Patient: Less than 30 (Time spent in direct patient care, greater than 50% of which was spent in [id number] counseling and coordination of care: 25 minutes)
[2019-06-26] MEDS: CHOLESTYRAMINE (WITH SUGAR) 4 GM PACKET PO SCH ×2 (11:34→16:48)
[2019-06-26] MEDS: METOPROLOL TARTRATE 25 MG TAB PO SCH ×2 (11:34→21:35)
[2019-06-26] MEDS: clonazePAM 0.5 MG TAB PO SCH (11:35)
[2019-06-26] MEDS: busPIRone HCl 10 MG TAB PO SCH ×3 (11:35→21:35)
[2019-06-26] MEDS: LACTOBACILLUS ACIDOPH & BULGAR 1 EACH PACKET PO SCH ×2 (11:35→21:35)
[2019-06-26] MEDS: LOSARTAN 50 MG TAB PO SCH (11:35)
[2019-06-26] MEDS: ESCITALOPRAM 20 MG TAB PO SCH ×2 (11:35→21:35)
[2019-06-26] MEDS: ENOXAPARIN 40 MG/0.4 ML SYRINGE SQ SCH (11:35)
[2019-06-26] MEDS: buPROPion XL 300 MG TAB.ER.24H PO SCH (11:35)
[2019-06-26] MEDS: FAMOTIDINE 20 MG TAB PO SCH (11:35)
--- NOTE | 2019-06-26 13:07 | XR ---
EXAMINATION TYPE: XR abdomen 2V DATE OF EXAM: 06/26/2019 COMPARISON: 06/22/2019 HISTORY: Abdominal pain and distention TECHNIQUE: One view abdominal series FINDINGS: The osseous structures are intact. The bowel gas pattern is nonspecific. Scoliosis with severe degen erative disc disease and arthropathy of the hips. Surgical clip overlying the left pubic rami. Soft t issue ossification adjacent to the right acetabulum. Basilar subsegmental consolidation on the right. Persistent catheter within the abdomen noted. Occasional air-fluid levels are seen. IMPRESSION: 1. Nonspecific abdomen. Occasional air-fluid levels may been the basis of an ileus or enteritis. 2. Right basilar consolidation correlate for atelectasis versus infiltrate.
--- NOTE | 2019-06-26 14:17 | P.PN ---
Subjective Progress Note Date: 06/26/19 This is a 68-year-old female patient of Dr. Heriberto Preciado and Dr. Dickinson with past medical history of myocardial infarction with CABG 5 vessels 15 years ago, hypothyroidism, hypertension, hyperlipidemia, Alzheimer's dementia, normal pressure hydrocephalus status post ventriculoperitoneal shunt placement 04/22/[address] [facility] with Dr. Duarte, recurrent depression. Patient states she has tremors and had this worked up by Dr. Mcgraw. These become significantly worse and causing tremors and her face as well a significant shaking to her hands. She states she has been feeling funny for the past 1-2 weeks. She denies any recent fall or if she denies any headache, no blurred vision. She is complaining of abdominal pain to the sides and metal. She also complains of fever and lightheadedness. Patient complains of runny watery stool that started yesterday since her first trip to the emergency center. She states she has had 4 stools since then and denies any blood in her stools. She denies any history of C. difficile colitis. Daughter gives history that patient is been under a lot of stress and that the patient's is actively dying in a facility. Daughter states temperature at home was 102.8. Patient presented to [facility] emergency center for evaluation. Patient initially presented at 11:47 in the morning by EMS for confusion for 3 days, tremors and burning with urination. Temperature was 99.6, vital signs were stable, white count was 10.9, white count 145, creatinine 1.09, blood sugar 133. Troponin was negative. Urinalysis negative for infection. There was a small amount of blood. Urine drug screen was negative. CAT scan of the brain showed no acute intracranial abnormality. Stable positioning of the right RN CASE MGR shunt catheter. No hydrocephalus.. Chest x-ray shows no acute cardiopulmonary process. The patient was stable while in the emergency center and she was discharged home with plan for daughter to stay with her the next couple days and make a follow- up appointment with neurosurgeon at [facility]. The patient returned at 10 PM due to severe weakness, persistent shaking, unable to eat or drink anything, unable to stand or ambulate, fevers and abdominal pain. On this visit, patient was found have a fever 102.6, heart rate 111, blood pressure 138/62 and pulse ox 99%. EKG was sinus rhythm with T-wave elevation in aVR. Repeat white count was at 8.8, sodium 133, lactic acid 1, CK 1965, TSH 2.190. Troponin 0.030. Influenza testing negative. Lipase 153. She was given 3 L of IV fluid total. Patient was started on IV fluids, Tylenol and ibuprofen and [facility] Ultrasound of gallbladder showed mild dilatation of common duct is likely patient's age. CT abdomen and pelvis with contrast reveals colitis. EEG was normal. 06/24: Patient has been seen by Dr. Duffy for diffuse tremor possibly benign essential tremor exacerbated by acute illness and emotional stress. Other cons iderations include neuroleptic malignant syndrome with fever and elevated CK and ventriculitis if needed clonazepam could be increased to control tremor avoiding sedation and would recommend outpatient adjustments. He recommends holding dopamine agonist drugs and okay to continue Aricept. Repeat lab work shows a normal CBC except for platelet count of 131. Sodium 135, potassium 3.0, chloride 108, CO2 17, BUN 11 and creatinine 0.94. AST 72. Blood sugars 100- 108. Calcium 8.1. Repeat CK 191. Potassium has been replaced. Temperature max 100.9 this morning. She did have a temperature of 101.8 at 3 PM yesterday. This morning patient broke out and severe diaphoresis and after that her tremors have been much improved. She continues to have mid abdominal pain and decreased appetite. She is passing gas. She also states she continues to have diarrhea and specimen is to be sent today for C. difficile colitis. Today she has only had 1 stool this far. She did notice a little bit of blood in her stool this morning. She has been ambulating in the unit without difficulty. The patient also found to have a rectal prolapse that is currently in place. Daughter has been informed of this continues to be a problem that surgical follow-up should be done but no need at this point. Diet changed to lactose-free. 06/25: Temperature max last 24 hours is 100.2, heart rate 59, blood pressure 167/77, pulse ox 90% on room air. The patient's tremor apparently worsened last evening. Dr. Duffy has added clonazepam 0.5 mg in the morning and continue the 1 mg at bedtime. Patient to be monitored for sedation and confusion, delirium. Repeat CK is 1398, sodium 136, potassium 3.1, chloride 107, CO2 20. AST 78. Potassium will be replaced. Patient states that she is feeling well this morn ing. She continues to have lower left-sided abdominal pain. She is eating very little. C. difficile toxin and rotavirus are negative. Physical therapy has recommended home with home care. Patient apparently developed sundowners during the night and pulled her IV out and was walking in the ramires. Patient states she has had continued diarrhea but according to nursing staff, stools are very soft. No watery stools. IV antibiotics will be changed to Zosyn. Anticipate possible discharge the next 24-48 hours. 06/26: Temperature max during the night was 100.2. Heart rate 63, blood pressure 153/75, pulse ox 99% on room air. WBC 5.9, hemoglobin 11.4, platelet count 136. CK is down to 782. Sodium 135, potassium 3.8, creatinine 1.06, AST 60. Blood cultures are showing no growth at 48 hours and at 72 hours, urine culture finalized with no growth. The patient states she continues to have abdominal pain and does not feel that she is any better. Diet will be reduced to 4 liquids only. Abdominal x-ray has been ordered which reveals nonspecific abdomen. Occasional air-fluid levels May be on the basis of ileus or enteritis. Right basilar consolidation correlate for atelectasis versus infiltrate. Incentive spirometry added. Objective - Vital Signs Vital signs: Vital Signs Temp 100.2 F H 06/26/19 02:20 Pulse 63 06/26/19 02:20 Resp 18 06/26/19 02:20 BP 153/75 06/26/19 02:20 Pulse Ox 99 06/26/19 02:20 Intake & Output 06/25/19 06/26/19 06/26/19 18:59 06:59 18:59 Intake Total 600 210 Balance 600 210 Intake: Oral 600 210 Other: Voiding Method Toilet # Voids 3 2 # Bowel Movements 1 - Exam Review of Systems Constitutional: Denies chills, Reports fatigue, Reports fever, Reports lethargy, Reports malaise, Reports poor appetite, Reports weakness Ears, nose, mouth and throat: Denies dysphagia, Denies mouth pain, Denies vertigo Cardiovascular: Denies lightheadedness, Denies chest pain, Denies leg edema, Denies syncope Respiratory: Denies cough, Denies cough with sputum, Denies dyspnea, Denies exc essive sputum, Denies hemoptysis, Denies home oxygen, Denies wheezing Gastrointestinal: Reports abdominal pain, Reports diarrhea, Reports loss of appetite, Denies nausea, Denies vomiting Genitourinary: Denies dysuria, Denies hematuria, Denies urgency, Denies urinary frequency Musculoskeletal: Reports gait dysfunction, Reports muscle weakness, Denies myalgias Integumentary: Denies pruritus, Denies rash, Denies wounds Neurological: Reports change in mentation, Reports confusion, Reports gait dysfunction, Reports tremors, Reports vertigo, Denies aphasia, Denies numbness, Denies seizures, Denies weakness Psychiatric: Denies anxiety, Denies depression Endocrine: Denies fatigue, Denies weight change Gen: This is a 68-year-old female. She is resting in a recliner and appears to be comfortable. Tremor is present mildly but improved since admission. Daughter is at bedside. HEENT: Head is atraumatic, normocephalic. Pupils equal, round. Sclerae is anicteric. NECK: Supple. No JVD. No lymphadenopathy. No thyromegaly. LUNGS: Clear to auscultation. No wheezes or rhonchi. No intercostal retractions. HEART: Regular rate and rhythm. Systolic murmur. ABDOMEN: Soft. Bowel sounds are present. No masses. Lower abdominal tenderness. EXTREMITIES: No pedal edema. No calf tenderness. Dorsalis pedis +2 bilat erally. NEUROLOGICAL: Patient is awake, alert and oriented x3. Cranial nerves 2 through 12 are grossly intact. Noted short-term memory deficits. - Labs CBC & Chem 7: 06/26/19 06:55 06/26/19 06:55 Labs: Abnormal Lab Results - Last 24 Hours (Table) 06/25/19 06/25/19 06/26/19 Range/Units 07:44 07:44 06:55 RBC (3.80-5.40) m/uL Plt Count (150-450) k/uL Sodium 136 L 135 L (137-145) mmol/L Potassium 3.1 L 3.1 L (3.5-5.1) mmol/L Carbon Dioxide 20 L (22-30) mmol/L Creatinine 1.06 H (0.52-1.04) mg/dL Glucose 100 H (74-99) mg/dL Calcium 8.0 L (8.4-10.2) mg/dL AST 78 H 60 H (14-36) U/L Creatine Kinase 1398 H* 782 H (30-135) U/L Total Protein 5.4 L 4.6 L (6.3-8.2) g/dL Albumin 3.1 L 2.6 L (3.5-5.0) g/dL 06/26/19 Range/Units 06:55 RBC 3.73 L (3.80-5.40) m/uL Plt Count 136 L (150-450) k/uL Sodium (137-145) mmol/L Potassium (3.5-5.1) mmol/L Carbon Dioxide (22-30) mmol/L Creatinine (0.52-1.04) mg/dL Glucose (74-99) mg/dL Calcium (8.4-10.2) mg/dL AST (14-36) U/L Creatine Kinase (30-135) U/L Total Protein (6.3-8.2) g/dL Albumin (3.5-5.0) g/dL Microbiology - Last 24 Hours (Table) 06/22/19 23:00 Blood Culture - Preliminary Blood No Growth after 72 hours 06/23/19 16:47 Blood Culture - Preliminary Blood No Growth after 48 hours Assessment and Plan Plan: 1. Sepsis secondary to colitis. Flagyl discontinued and started Zosyn. Stool for rotavirus negative, stool for C. difficile toxin negative, CT of the abdomen and pelvis as above. Continue Questran, lactobacillus. Diet reduced to full liquids. 2. Metabolic encephalopathy secondary to dehydration. Continue IV fluids. 3. Benign essential tremor exacerbated by illness and stress. Consult with neurology appreciated. Clonazepam 0.5 mg in the morning added to her 1 mg at bedtime. 4. Rhabdomyolysis secondary to tremors/shivers. Continue IV fluids. Recheck CK level. Hold atorvastatin. 5. History of coronary artery disease with five-vessel CABG. Continue losartan, Lopressor. 6. Hypertension. Continue losartan 50 mg daily, Lopressor 25 mg twice daily. 7. Hyperlipidemia. Hold Lipitor. 8. Hypothyroidism. Continue levothyroxine 75 g daily. 9. Alzheimer dementia Continue Aricept 10 mg at bedtime. 10. Recurrent depression and generalized anxiety disorder. Continue Lexapro 20 mg twice daily, clonazepam 1 mg at bedtime, Wellbutrin 300 mg daily. 11. Normal pressure hydrocephalus status post RN CASE MGR shunt at [facility] in March 2019, stable. No abnormality seen on CAT scan. 12. DVT prophylaxis. Lovenox subcu. 13. Gastroesophageal reflux disease, GI prophylaxis. Pepcid 20 g twice daily. 14. Rectal prolapse, stable. Patient follow-up with general surgery if this becomes problematic. Discharge plan: Home with [facility] in the next 24-48 hours. Impression and plan of care have been directed as dictated by the signing physician. Izzy Rossi nurse practitioner acting as scribe for signing physician.
[2019-06-26 15:29] VITALS: BMI 22.4
[2019-06-26] MEDS: DONEPEZIL 10 MG TAB PO SCH (21:35)
[2019-06-26] MEDS: clonazePAM 1 MG TAB PO SCH (21:35)
[2019-06-27] MEDS: PIPERACILLIN-TAZOBACTAM 3.375 GM in SODIUM CHLORIDE 0.9% 100 ML IVPB SCH ×4 (01:11→23:26)
[2019-06-27] MEDS: LEVOTHYROXINE 75 MCG TAB PO SCH (05:27)
[2019-06-27 06:54] LABS: HCT 36.5 % (34.0-46.0); HGB 12.1 gm/dL (11.4-16.0); MCH 30.8 pg (25.0-35.0); MCHC 33.2 g/dL (31.0-37.0); MCV 92.5 fL (80.0-100.0); Mean Platelet Volume 8.5; Platelet Count 158 k/uL (150-450); RBC 3.95 m/uL (3.80-5.40); RDW 15.2 % (11.5-15.5); WBC 6.2 k/uL (3.8-10.6)
[2019-06-27 07:27] LABS: Albumin 2.9 g/dL (3.5-5.0); Calcium 8.3 mg/dL (8.4-10.2); Potassium 3.7 mmol/L (3.5-5.1); Total Bilirubin 0.7 mg/dL (0.2-1.3)
[2019-06-27] MEDS: CHOLESTYRAMINE (WITH SUGAR) 4 GM PACKET PO SCH ×3 (08:18→17:13)
[2019-06-27] MEDS: ENOXAPARIN 40 MG/0.4 ML SYRINGE SQ SCH (08:18)
[2019-06-27] MEDS: METOPROLOL TARTRATE 25 MG TAB PO SCH ×2 (08:19→20:15)
[2019-06-27] MEDS: FAMOTIDINE 20 MG TAB PO SCH (08:19)
[2019-06-27] MEDS: buPROPion XL 300 MG TAB.ER.24H PO SCH (08:19)
[2019-06-27] MEDS: busPIRone HCl 10 MG TAB PO SCH ×3 (08:19→20:15)
[2019-06-27] MEDS: ESCITALOPRAM 20 MG TAB PO SCH ×2 (08:19→20:15)
[2019-06-27] MEDS: LACTOBACILLUS ACIDOPH & BULGAR 1 EACH PACKET PO SCH ×2 (08:19→20:15)
[2019-06-27] MEDS: clonazePAM 0.5 MG TAB PO SCH ×2 (08:20→20:15)
[2019-06-27] MEDS: LOSARTAN 50 MG TAB PO SCH (08:20)
--- NOTE | 2019-06-27 13:47 | P.PN ---
Subjective Progress Note Date: 06/27/19 This is a 68-year-old female patient of Dr. Heriberto Preciado and Dr. Dickinson with past medical history of myocardial infarction with CABG 5 vessels 15 years ago, hypothyroidism, hypertension, hyperlipidemia, Alzheimer's dementia, normal pressure hydrocephalus status post ventriculoperitoneal shunt placement 04/22/2019 at [facility] with Dr. Duarte, recurrent depression. Patient states she has tremors and had this worked up by Dr. Mcgraw. These become significantly worse and causing tremors and her face as well a significant shaking to her hands. She states she has been feeling funny for the past 1-2 weeks. She denies any recent fall or if she denies any headache, no blurred vision. She is complaining of abdominal pain to the sides and metal. She also complains of fever and lightheadedness. Patient complains of runny watery stool that started yesterday since her first trip to the emergency center. She states she has had 4 stools since then and denies any blood in her stools. She denies any history of C. difficile colitis. Daughter gives history that patient is been under a lot of stress and that the patient's is actively dying in a facility. Daughter states temperature at home was 102.8. Patient presented to [facility] emergency center for evaluation. Patient initially presented at 11:47 in the morning by EMS for confusion for 3 days, tremors and burning with urination. Temperature was 99.6, vital signs were stable, white count was 10.9, white count 145, creatinine 1.09, blood sugar 133. Troponin was negative. Urinalysis negative for infection. There was a small amount of blood. Urine drug screen was negative. CAT scan of the brain showed no acute intracranial abnormality. Stable positioning of the right ANALYTICS ANALYST shunt catheter. No hydrocephalus.. Chest x-ray shows no acute cardiopulmonary process. The patient was stable while in the emergency center and she was discharged home with plan for daughter to stay with her the next couple days and make a follow- up appointment with neurosurgeon at [facility]. The patient returned at 10 PM due to severe weakness, persistent shaking, unable to eat or drink anything, unable to stand or ambulate, fevers and abdominal pain. On this visit, patient was found have a fever 102.6, heart rate 111, blood pressure 138/62 and pulse ox 99%. EKG was sinus rhythm with T-wave elevation in aVR. Repeat white count was at 8.8, sodium 133, lactic acid 1, CK 1965, TSH 2.190. Troponin 0.030. Influenza testing negative. Lipase 153. She was given 3 L of IV fluid total. Patient was started on IV fluids, Tylenol and ibuprofen and [facility] Ultrasound of gallbladder showed mild dilatation of common duct is likely patient's age. CT abdomen and pelvis with contrast reveals colitis. EEG was normal. 06/24: Patient has been seen by Dr. Duffy for diffuse tremor possibly benign essential tremor exacerbated by acute illness and emotional stress. Other cons iderations include neuroleptic malignant syndrome with fever and elevated CK and ventriculitis if needed clonazepam could be increased to control tremor avoiding sedation and would recommend outpatient adjustments. He recommends holding dopamine agonist drugs and okay to continue Aricept. Repeat lab work shows a normal CBC except for platelet count of 131. Sodium 135, potassium 3.0, chloride 108, CO2 17, BUN 11 and creatinine 0.94. AST 72. Blood sugars 100- 108. Calcium 8.1. Repeat CK 191. Potassium has been replaced. Temperature max 100.9 this morning. She did have a temperature of 101.8 at 3 PM yesterday. This morning patient broke out and severe diaphoresis and after that her tremors have been much improved. She continues to have mid abdominal pain and decreased appetite. She is passing gas. She also states she continues to have diarrhea and specimen is to be sent today for C. difficile colitis. Today she has only had 1 stool this far. She did notice a little bit of blood in her stool this morning. She has been ambulating in the unit without difficulty. The patient also found to have a rectal prolapse that is currently in place. Daughter has been informed of this continues to be a problem that surgical follow-up should be done but no need at this point. Diet changed to lactose-free. 06/25: Temperature max last 24 hours is 100.2, heart rate 59, blood pressure 167/77, pulse ox 90% on room air. The patient's tremor apparently worsened last evening. Dr. Duffy has added clonazepam 0.5 mg in the morning and continue the 1 mg at bedtime. Patient to be monitored for sedation and confusion, delirium. Repeat CK is 1398, sodium 136, potassium 3.1, chloride 107, CO2 20. AST 78. Potassium will be replaced. Patient states that she is feeling well this morn ing. She continues to have lower left-sided abdominal pain. She is eating very little. C. difficile toxin and rotavirus are negative. Physical therapy has recommended home with home care. Patient apparently developed sundowners during the night and pulled her IV out and was walking in the ramires. Patient states she has had continued diarrhea but according to nursing staff, stools are very soft. No watery stools. IV antibiotics will be changed to Zosyn. Anticipate possible discharge the next 24-48 hours. 06/26: Temperature max during the night was 100.2. Heart rate 63, blood pressure 153/75, pulse ox 99% on room air. WBC 5.9, hemoglobin 11.4, platelet count 136. CK is down to 782. Sodium 135, potassium 3.8, creatinine 1.06, AST 60. Blood cultures are showing no growth at 48 hours and at 72 hours, urine culture finalized with no growth. The patient states she continues to have abdominal pain and does not feel that she is any better. Diet will be reduced to 4 liquids only. Abdominal x-ray has been ordered which reveals nonspecific abdomen. Occasional air-fluid levels May be on the basis of ileus or enteritis. Right basilar consolidation correlate for atelectasis versus infiltrate. Incentive spirometry added. 06/27: Normal viruses come back negative. CPK is now at 424. Patient complains of left lower quadrant soreness and diffuse tenderness. She denies any shortn ess of breath. Abdominal pain appears to be better so we will advance diet to a low fiber. Tremors are controlled. Clonazepam at bedtime will be decreased to 0.5 mg. Patient has been afebrile now for 24 hours. Anticipate possible discharge by tomorrow. Objective - Vital Signs Vital signs: Vital Signs Temp 98.5 F 06/27/19 07:00 Pulse 61 06/27/19 07:00 Resp 15 06/27/19 07:00 BP 150/76 06/27/19 07:00 Pulse Ox 94 L 06/27/19 07:00 Intake & Output 06/26/19 06/27/19 06/27/19 18:59 06:59 18:59 Intake Total 1280 Balance 1280 Weight 50.349 kg Intake: Intake, IV Titration 700 Amount Piperacillin-Tazobactam 3 100 .375 gm In Sodium Chloride 0.9% 100 ml @ 25 mls/hr IVPB Q8HR [facility] Rx# :[id number] Sodium Chloride 0.9% 1, 600 000 ml @ 75 mls/hr IV . [id number] [facility] Rx#:[id number] Oral 580 Other: Voiding Method Toilet Toilet # Voids 3 4 # Bowel Movements 1 - Exam Review of Systems Constitutional: Denies chills, Reports fatigue, Reports fever, Reports lethargy, Reports poor appetite, Reports weakness Ears, nose, mouth and throat: Denies dysphagia, Denies mouth pain, Denies vertigo Cardiovascular: Denies lightheadedness, Denies chest pain, Denies leg edema, Den ies syncope Respiratory: Denies cough, Denies cough with sputum, Denies dyspnea, Denies excessive sputum, Denies hemoptysis, Denies home oxygen, Denies wheezing Gastrointestinal: Reports abdominal pain, denies diarrhea, Reports loss of appetite, Denies nausea, Denies vomiting Genitourinary: Denies dysuria, Denies hematuria, Denies urgency, Denies urinary frequency Musculoskeletal: Reports gait dysfunction, Reports muscle weakness, Denies myalgias Integumentary: Denies pruritus, Denies rash, Denies wounds Neurological: Reports change in mentation, Reports confusion, Reports gait dysfunction, Reports tremors, Reports vertigo, Denies aphasia, Denies numbness, Denies seizures, Denies weakness Psychiatric: Denies anxiety, Denies depression Endocrine: Denies fatigue, Denies weight change Gen: This is a 68-year-old female. She is resting in a recliner and appears to be comfortable. Tremor is present mildly but improved since admission. Daughter is at bedside. HEENT: Head is atraumatic, normocephalic. Pupils equal, round. Sclerae is anicteric. NECK: Supple. No JVD. No lymphadenopathy. No thyromegaly. LUNGS: Clear to auscultation. No wheezes or rhonchi. No intercostal retr actions. HEART: Regular rate and rhythm. Systolic murmur. ABDOMEN: Soft. Bowel sounds are present. No masses. Diffuse abdominal tenderness. EXTREMITIES: No pedal edema. No calf tenderness. Dorsalis pedis +2 bilaterally. NEUROLOGICAL: Patient is awake, alert and oriented x3. Cranial nerves 2 through 12 are grossly intact. Noted short-term memory deficits. - Labs CBC & Chem 7: 06/27/19 06:31 06/27/19 06:31 Labs: Abnormal Lab Results - Last 24 Hours (Table) 06/27/19 Range/Units 06:31 Sodium 136 L (137-145) mmol/L BUN 6 L (7-17) mg/dL Calcium 8.3 L (8.4-10.2) mg/dL AST 75 H (14-36) U/L Creatine Kinase 424 H (30-135) U/L Total Protein 5.0 L (6.3-8.2) g/dL Albumin 2.9 L (3.5-5.0) g/dL Microbiology - Last 24 Hours (Table) 06/22/19 23:00 Blood Culture - Preliminary Blood No Growth after 96 hours 06/23/19 16:47 Blood Culture - Preliminary Blood No Growth after 72 hours Assessment and Plan Plan: 1. Sepsis secondary to colitis. Flagyl discontinued and started Zosyn. Stool for rotavirus negative, stool for C. difficile toxin negative, CT of the abdomen and pelvis as above. Continue Questran, lactobacillus. Diet reduced to full liquids. 2. Metabolic encephalopathy secondary to dehydration. Continue IV fluids. 3. Benign essential tremor exacerbated by illness and stress. Consult with neurology appreciated. Clonazepam 0.5 mg twice daily 4. Rhabdomyolysis secondary to tremors/shivers. Continue IV fluids. Recheck CK level. Hold atorvastatin. 5. History of coronary artery disease with five-vessel CABG. Continue losartan, Lopressor. 6. Hypertension. Continue losartan 50 mg daily, Lopressor 25 mg twice daily. 7. Hyperlipidemia. Hold Lipitor. 8. Hypothyroidism. Continue levothyroxine 75 g daily. 9. Alzheimer dementia Continue Aricept 10 mg at bedtime. 10. Recurrent depression and generalized anxiety disorder. Continue Lexapro 20 mg twice daily, clonazepam 0.5 mg twice daily, Wellbutrin 300 mg daily. 11. Normal pressure hydrocephalus status post ANALYTICS ANALYST shunt at [facility] in March 2019, stable. No abnormality seen on CAT scan. 12. DVT prophylaxis. Lovenox subcu. 13. Gastroesophageal reflux disease, GI prophylaxis. Pepcid 20 g twice daily. 14. Rectal prolapse, stable. Patient follow-up with general surgery if this becomes problematic. Discharge plan: Home with [facility] in the next 24 hours. Impression and plan of care have been directed as dictated by the signing physician. Izzy Rossi nurse practitioner acting as scribe for signing physician.
[2019-06-27] MEDS: SODIUM CHLORIDE 0.9% 1,000 ML IV SCH ×2 (19:25→20:15)
[2019-06-27] MEDS: DONEPEZIL 10 MG TAB PO SCH (20:15)
[2019-06-28] MEDS: LEVOTHYROXINE 75 MCG TAB PO SCH (05:57)
[2019-06-28 07:06] LABS: Albumin 2.8 g/dL (3.5-5.0); Potassium 3.3 mmol/L (3.5-5.1); Total Bilirubin 0.6 mg/dL (0.2-1.3); Total Protein 4.9 g/dL (6.3-8.2)
[2019-06-28] MEDS ORDERED: POTASSIUM CHLORIDE ER 20 MEQ TAB.ER PO STA (07:21)
[2019-06-28] MEDS: LOSARTAN 50 MG TAB PO SCH (08:48)
[2019-06-28] MEDS: FAMOTIDINE 20 MG TAB PO SCH (08:48)
[2019-06-28] MEDS: clonazePAM 0.5 MG TAB PO SCH ×2 (08:48→20:28)
[2019-06-28] MEDS: busPIRone HCl 10 MG TAB PO SCH ×3 (08:48→20:28)
[2019-06-28] MEDS: ESCITALOPRAM 20 MG TAB PO SCH ×2 (08:48→20:28)
[2019-06-28] MEDS: buPROPion XL 300 MG TAB.ER.24H PO SCH (08:48)
[2019-06-28] MEDS: ACETAMINOPHEN TAB 325 MG TAB PO PRN ×2 (08:48→23:32)
[2019-06-28] MEDS: METOPROLOL TARTRATE 25 MG TAB PO SCH ×2 (08:48→20:28)
[2019-06-28] MEDS: PIPERACILLIN-TAZOBACTAM 3.375 GM in SODIUM CHLORIDE 0.9% 100 ML IVPB SCH ×3 (08:49→23:27)
[2019-06-28] MEDS: ENOXAPARIN 40 MG/0.4 ML SYRINGE SQ SCH (08:49)
[2019-06-28] MEDS: LACTOBACILLUS ACIDOPH & BULGAR 1 EACH PACKET PO SCH ×2 (08:49→20:28)
[2019-06-28] MEDS ORDERED: LOPERAMIDE 2 MG CAP PO PRN (10:01)
[2019-06-28] MEDS ORDERED: LOPERAMIDE 2 MG CAP PO STA (10:01)
--- NOTE | 2019-06-28 12:15 | XR ---
EXAMINATION TYPE: XR abdomen 2V , 2 VIEWS DATE OF EXAM ORDERED: 06/28/2019 HISTORY: colitis. COMPARISON: Previous study dated 06/26/2019. FINDINGS: There is a moderate dextroscoliosis. There is been a midline sternotomy. There is degenera tive change within the thoracic and lumbar spines. The lung bases are clear. Within the abdomen, there is a peritoneal dialysis catheter in place. The abdominal gas pattern is wi thin normal limits. There is no evidence of obstruction or free air. No unusual calcifications are se en. IMPRESSION: NO ACUTE INTRA-ABDOMINAL ABNORMALITY.
--- NOTE | 2019-06-28 15:40 | P.PN ---
Subjective Progress Note Date: 06/28/19 This is a 68-year-old female patient of Dr. Heriberto Preciado and Dr. Dickinson with past medical history of myocardial infarction with CABG 5 vessels 15 years ago, hypothyroidism, hypertension, hyperlipidemia, Alzheimer's dementia, normal pressure hydrocephalus status post ventriculoperitoneal shunt placement 04/22/2019 at [facility] with Dr. Duarte, recurrent depression. Patient states she has tremors and had this worked up by Dr. Mcgraw. These become significantly worse and causing tremors and her face as well a significant shaking to her hands. She states she has been feeling funny for the past 1-2 weeks. She denies any recent fall or if she denies any headache, no blurred vision. She is complaining of abdominal pain to the sides and metal. She also complains of fever and lightheadedness. Patient complains of runny watery stool that started yesterday since her first trip to the emergency center. She states she has had 4 stools since then and denies any blood in her stools. She denies any history of C. difficile colitis. Daughter gives history that patient is been under a lot of stress and that the patient's is actively dying in a facility. Daughter states temperature at home was 102.8. Patient presented to [facility] emergency center for evaluation. Patient initially presented at 11:47 in the morning by EMS for confusion for 3 days, tremors and burning with urination. Temperature was 99.6, vital signs were stable, white count was 10.9, white count 145, creatinine 1.09, blood sugar 133. Troponin was negative. Urinalysis negative for infection. There was a small amount of blood. Urine drug screen was negative. CAT scan of the brain showed no acute intracranial abnormality. Stable positioning of the right TEST WORKER shunt catheter. No hydrocephalus.. Chest x-ray shows no acute cardiopulmonary process. The patient was stable while in the emergency center and she was discharged home with plan for daughter to stay with her the next couple days and make a follow- up appointment with neurosurgeon at [facility]. The patient returned at 10 PM due to severe weakness, persistent shaking, unable to eat or drink anything, unable to stand or ambulate, fevers and abdominal pain. On this visit, patient was found have a fever 102.6, heart rate 111, blood pressure 138/62 and pulse ox 99%. EKG was sinus rhythm with T-wave elevation in aVR. Repeat white count was at 8.8, sodium 133, lactic acid 1, CK 1965, TSH 2.190. Troponin 0.030. Influenza testing negative. Lipase 153. She was given 3 L of IV fluid total. Patient was started on IV fluids, Tylenol and ibuprofen and admitted to the [facility] floor. Ultrasound of gallbladder showed mild dilatation of common duct is likely patient's age. CT abdomen and pelvis with contrast reveals colitis. EEG was normal. 06/24: Patient has been seen by Dr. Duffy for diffuse tremor possibly benign essential tremor exacerbated by acute illness and emotional stress. Other cons iderations include neuroleptic malignant syndrome with fever and elevated CK and ventriculitis if needed clonazepam could be increased to control tremor avoiding sedation and would recommend outpatient adjustments. He recommends holding dopamine agonist drugs and okay to continue Aricept. Repeat lab work shows a normal CBC except for platelet count of 131. Sodium 135, potassium 3.0, chloride 108, CO2 17, BUN 11 and creatinine 0.94. AST 72. Blood sugars 100- 108. Calcium 8.1. Repeat CK 191. Potassium has been replaced. Temperature max 100.9 this morning. She did have a temperature of 101.8 at 3 PM yesterday. This morning patient broke out and severe diaphoresis and after that her tremors have been much improved. She continues to have mid abdominal pain and decreased appetite. She is passing gas. She also states she continues to have diarrhea and specimen is to be sent today for C. difficile colitis. Today she has only had 1 stool this far. She did notice a little bit of blood in her stool this morning. She has been ambulating in the unit without difficulty. The patient also found to have a rectal prolapse that is currently in place. Daughter has been informed of this continues to be a problem that surgical follow-up should be done but no need at this point. Diet changed to lactose-free. 06/25: Temperature max last 24 hours is 100.2, heart rate 59, blood pressure 167/77, pulse ox 90% on room air. The patient's tremor apparently worsened last evening. Dr. Duffy has added clonazepam 0.5 mg in the morning and continue the 1 mg at bedtime. Patient to be monitored for sedation and confusion, delirium. Repeat CK is 1398, sodium 136, potassium 3.1, chloride 107, CO2 20. AST 78. Potassium will be replaced. Patient states that she is feeling well this morn ing. She continues to have lower left-sided abdominal pain. She is eating very little. C. difficile toxin and rotavirus are negative. Physical therapy has recommended home with home care. Patient apparently developed sundowners during the night and pulled her IV out and was walking in the ramires. Patient states she has had continued diarrhea but according to nursing staff, stools are very soft. No watery stools. IV antibiotics will be changed to Zosyn. Anticipate possible discharge the next 24-48 hours. 06/26: Temperature max during the night was 100.2. Heart rate 63, blood pressure 153/75, pulse ox 99% on room air. WBC 5.9, hemoglobin 11.4, platelet count 136. CK is down to 782. Sodium 135, potassium 3.8, creatinine 1.06, AST 60. Blood cultures are showing no growth at 48 hours and at 72 hours, urine culture finalized with no growth. The patient states she continues to have abdominal pain and does not feel that she is any better. Diet will be reduced to 4 liquids only. Abdominal x-ray has been ordered which reveals nonspecific abdomen. Occasional air-fluid levels May be on the basis of ileus or enteritis. Right basilar consolidation correlate for atelectasis versus infiltrate. Incentive spirometry added. 06/27: Normal viruses come back negative. CPK is now at 424. Patient complains of left lower quadrant soreness and diffuse tenderness. She denies any shortn ess of breath. Abdominal pain appears to be better so we will advance diet to a low fiber. Tremors are controlled. Clonazepam at bedtime will be decreased to 0.5 mg. Patient has been afebrile now for 24 hours. Anticipate possible discharge by tomorrow. 06/28: Patient is eating about 25% of her meals. She is only ambulating in her room and there is concern that she is somewhat unsteady and has increased fatigue. She complains of feeling nauseated and does not have much appetite. She is occasionally drinking her insurer. She did have one diarrhea stool this morning. Since from a tree has been added. Stool for occult blood was negative. Temperature max 100.2, pulse 68, blood pressure 130/71, pulse ox 97% on room air. CK is 207, AST 67, AST 60, sodium 135 and potassium 3.3. Potass ium has been replaced. Patient's son and his Arrived and discussed discharge planning with them. We will plan to discuss with the patient's daughter and determine if patient would be best off going to subacute rehab. We will ask case management to reassess in the morning with plan for discharge home or to rehab tomorrow. Objective - Vital Signs Vital signs: Vital Signs Temp 97.8 F 06/28/19 14:55 Pulse 52 L 06/28/19 14:55 Resp 17 06/28/19 14:55 BP 138/71 06/28/19 14:55 Pulse Ox 97 06/28/19 14:55 Intake & Output 06/27/19 06/28/19 06/28/19 18:59 06:59 18:59 Intake Total 300 340 Balance 300 340 Intake: Intake, IV Titration 100 Amount Piperacillin-Tazobactam 3 100 .375 gm In Sodium Chloride 0.9% 100 ml @ 25 mls/hr IVPB Q8HR [facility] Rx# :[id number] Oral 200 340 Other: Voiding Method Toilet Toilet # Voids 1 10 # Bowel Movements 2 - Exam Review of Systems Constitutional: Denies chills, Reports fatigue, Reports fever, Reports lethargy, Reports poor appetite, Reports weakness Ears, nose, mouth and throat: Denies dysphagia, Denies mouth pain, Denies vertigo Cardiovascular: Denies lightheadedness, Denies chest pain, Denies leg edema, Denies syncope Respiratory: Denies cough, Denies cough with sputum, Denies dyspnea, Denies excessive sputum, Denies hemoptysis, Denies home oxygen, Denies wheezing Gastrointestinal: Reports abdominal pain, denies diarrhea, Reports loss of appetite, Denies nausea, Denies vomiting Genitourinary: Denies dysuria, Denies hematuria, Denies urgency, Denies urinary frequency Musculoskeletal: Reports gait dysfunction, Reports muscle weakness, Denies my algias Integumentary: Denies pruritus, Denies rash, Denies wounds Neurological: Reports change in mentation, Reports confusion, Reports gait dysfunction, Reports tremors, Reports vertigo, Denies aphasia, Denies numbness, Denies seizures, Denies weakness Psychiatric: Denies anxiety, Denies depression Endocrine: Denies fatigue, Denies weight change Gen: This is a 68-year-old female. She is resting in a recliner and appears to be comfortable. Tremor is present mild. Son is at bedside. HEENT: Head is atraumatic, normocephalic. Pupils equal, round. Sclerae is anicteric. NECK: Supple. No JVD. No lymphadenopathy. No thyromegaly. LUNGS: Clear to auscultation. No wheezes or rhonchi. No intercostal retractions. HEART: Regular rate and rhythm. Systolic murmur. ABDOMEN: Soft. Bowel sounds are present. No masses. Diffuse abdominal tenderness. EXTREMITIES: No pedal edema. No calf tenderness. Dorsalis pedis +2 bilaterally. NEUROLOGICAL: Patient is awake, alert and oriented x2-3. Cranial nerves 2 through 12 are grossly intact. Noted short-term memory deficits. - Labs CBC & Chem 7: 06/27/19 06:31 06/28/19 06:21 Labs: Abnormal Lab Results - Last 24 Hours (Table) 06/28/19 Range/Units 06:21 Sodium 135 L (137-145) mmol/L Potassium 3.3 L (3.5-5.1) mmol/L BUN 4 L (7-17) mg/dL Calcium 8.0 L (8.4-10.2) mg/dL AST 67 H (14-36) U/L ALT 60 H (9-52) U/L Creatine Kinase 207 H (30-135) U/L Total Protein 4.9 L (6.3-8.2) g/dL Albumin 2.8 L (3.5-5.0) g/dL Microbiology - Last 24 Hours (Table) 06/22/19 23:00 Blood Culture - Preliminary Blood No Growth after 120 hours 06/27/19 14:30 Stool Culture - Preliminary Stool 06/23/19 16:47 Blood Culture - Preliminary Blood No Growth after 96 hours Assessment and Plan Plan: 1. Sepsis secondary to colitis. Flagyl discontinued and started Zosyn. Stool for rotavirus negative, stool for C. difficile toxin negative, CT of the abdomen and pelvis as above. Continue Questran, lactobacillus. Diet reduced to full liquids. 2. Metabolic encephalopathy secondary to dehydration. Continue IV fluids. 3. Benign essential tremor exacerbated by illness and stress. Consult with neurology appreciated. Clonazepam 0.5 mg twice daily 4. Rhabdomyolysis secondary to tremors/shivers. Continue IV fluids. Recheck CK level. Hold atorvastatin. 5. History of coronary artery disease with five-vessel CABG. Continue losartan, Lopressor. 6. Hypertension. Continue losartan 50 mg daily, Lopressor 25 mg twice daily. 7. Hyperlipidemia. Hold Lipitor. 8. Hypothyroidism. Continue levothyroxine 75 g daily. 9. Alzheimer dementia Continue Aricept 10 mg at bedtime. 10. Recurrent depression and generalized anxiety disorder. Continue Lexapro 20 mg twice daily, clonazepam 0.5 mg twice daily, Wellbutrin 300 mg daily. 11. Normal pressure hydrocephalus status post TEST WORKER shunt at [facility] in March 2019, stable. No abnormality seen on CAT scan. 12. DVT prophylaxis. Lovenox subcu. 13. Gastroesophageal reflux disease, GI prophylaxis. Pepcid 20 g twice daily. 14. Rectal prolapse, stable. Patient follow-up with general surgery if this becomes problematic. Discharge plan: Home with [facility] in the next 24 hours. Patient may benefit from subacute rehab. Case management to reassess in the morning. Patient will be ready for discharge on Saturday. Impression and plan of care have been directed as dictated by the signing physician. Izzy Rossi nurse practitioner acting as scribe for signing physician.
[2019-06-28] MEDS: CHOLESTYRAMINE (WITH SUGAR) 4 GM PACKET PO SCH (17:49)
[2019-06-28] MEDS: SODIUM CHLORIDE 0.9% 1,000 ML IV SCH ×2 (18:56→20:31)
[2019-06-28] MEDS: DONEPEZIL 10 MG TAB PO SCH (20:28)
[2019-06-29] MEDS: LEVOTHYROXINE 75 MCG TAB PO SCH (05:49)
[2019-06-29] MEDS: LACTOBACILLUS ACIDOPH & BULGAR 1 EACH PACKET PO SCH ×2 (09:30→20:34)
[2019-06-29] MEDS: ENOXAPARIN 40 MG/0.4 ML SYRINGE SQ SCH (09:30)
[2019-06-29] MEDS: PIPERACILLIN-TAZOBACTAM 3.375 GM in SODIUM CHLORIDE 0.9% 100 ML IVPB SCH ×3 (09:30→23:57)
[2019-06-29] MEDS: busPIRone HCl 10 MG TAB PO SCH ×3 (09:30→22:22)
[2019-06-29] MEDS: METOPROLOL TARTRATE 25 MG TAB PO SCH ×2 (09:31→20:33)
[2019-06-29] MEDS: FAMOTIDINE 20 MG TAB PO SCH (09:31)
[2019-06-29] MEDS: buPROPion XL 300 MG TAB.ER.24H PO SCH (09:31)
[2019-06-29] MEDS: LOSARTAN 50 MG TAB PO SCH (09:31)
[2019-06-29] MEDS: clonazePAM 0.5 MG TAB PO SCH ×2 (09:31→20:33)
[2019-06-29] MEDS: ESCITALOPRAM 20 MG TAB PO SCH ×2 (09:31→20:33)
[2019-06-29] MEDS: CHOLESTYRAMINE (WITH SUGAR) 4 GM PACKET PO SCH ×2 (09:32→17:37)
[2019-06-29 11:01] LABS: Calcium 8.8 mg/dL (8.4-10.2); Potassium 3.7 mmol/L (3.5-5.1)
[2019-06-29] MEDS: SODIUM CHLORIDE 0.9% 1,000 ML IV SCH (12:53)
[2019-06-29] MEDS ORDERED: LOSARTAN 50 MG TAB PO STA (15:24)
--- NOTE | 2019-06-29 15:33 | P.PN ---
Subjective Progress Note Date: 06/29/19 This is a 68-year-old female patient of Dr. Heriberto Preciado and Dr. Dickinson with past medical history of myocardial infarction with CABG 5 vessels 15 years ago, hypothyroidism, hypertension, hyperlipidemia, Alzheimer's dementia, normal pressure hydrocephalus status post ventriculoperitoneal shunt placement 04/22/2019 at [facility] with Dr. Duarte, recurrent depression. Patient states she has tremors and had this worked up by Dr. Mcgraw. These become significantly worse and causing tremors and her face as well a significant shaking to her hands. She states she has been feeling funny for the past 1-2 weeks. She denies any recent fall or if she denies any headache, no blurred vision. She is complaining of abdominal pain to the sides and metal. She also complains of fever and lightheadedness. Patient complains of runny watery stool that started yesterday since her first trip to the emergency center. She states she has had 4 stools since then and denies any blood in her stools. She denies any history of C. difficile colitis. Daughter gives history that patient is been under a lot of stress and that the patient's is actively dying in a facility. Daughter states temperature at home was 102.8. Patient presented to [facility] emergency center for evaluation. Patient initially presented at 11:47 in the morning by EMS for confusion for 3 days, tremors and burning with urination. Temperature was 99.6, vital signs were stable, white count was 10.9, white count 145, creatinine 1.09, blood sugar 133. Troponin was negative. Urinalysis negative for infection. There was a small amount of blood. Urine drug screen was negative. CAT scan of the brain showed no acute intracranial abnormality. Stable positioning of the right STRAIGHTEDGE WORKER shunt catheter. No hydrocephalus.. Chest x-ray shows no acute cardiopulmonary process. The patient was stable while in the emergency center and she was discharged home with plan for daughter to stay with her the next couple days and make a follow- up appointment with neurosurgeon at [facility]. The patient returned at 10 PM due to severe weakness, persistent shaking, unable to eat or drink anything, unable to stand or ambulate, fevers and abdominal pain. On this visit, patient was found have a fever 102.6, heart rate 111, blood pressure 138/62 and pulse ox 99%. EKG was sinus rhythm with T-wave elevation in aVR. Repeat white count was at 8.8, sodium 133, lactic acid 1, CK 1965, TSH 2.190. Troponin 0.030. Influenza testing negative. Lipase 153. She was given 3 L of IV fluid total. Patient was started on IV fluids, Tylenol and ibuprofen and admitted [facility]. Ultrasound of gallbladder showed mild dilatation of common duct is likely patient's age. CT abdomen and pelvis with contrast reveals colitis. EEG was normal. 06/24: Patient has been seen by Dr. Duffy for diffuse tremor possibly benign essential tremor exacerbated by acute illness and emotional stress. Other cons iderations include neuroleptic malignant syndrome with fever and elevated CK and ventriculitis if needed clonazepam could be increased to control tremor avoiding sedation and would recommend outpatient adjustments. He recommends holding dopamine agonist drugs and okay to continue Aricept. Repeat lab work shows a normal CBC except for platelet count of 131. Sodium 135, potassium 3.0, chloride 108, CO2 17, BUN 11 and creatinine 0.94. AST 72. Blood sugars 100- 108. Calcium 8.1. Repeat CK 191. Potassium has been replaced. Temperature max 100.9 this morning. She did have a temperature of 101.8 at 3 PM yesterday. This morning patient broke out and severe diaphoresis and after that her tremors have been much improved. She continues to have mid abdominal pain and decreased appetite. She is passing gas. She also states she continues to have diarrhea and specimen is to be sent today for C. difficile colitis. Today she has only had 1 stool this far. She did notice a little bit of blood in her stool this morning. She has been ambulating in the unit without difficulty. The patient also found to have a rectal prolapse that is currently in place. Daughter has been informed of this continues to be a problem that surgical follow-up should be done but no need at this point. Diet changed to lactose-free. 06/25: Temperature max last 24 hours is 100.2, heart rate 59, blood pressure 167/77, pulse ox 90% on room air. The patient's tremor apparently worsened last evening. Dr. Duffy has added clonazepam 0.5 mg in the morning and continue the 1 mg at bedtime. Patient to be monitored for sedation and confusion, delirium. Repeat CK is 1398, sodium 136, potassium 3.1, chloride 107, CO2 20. AST 78. Potassium will be replaced. Patient states that she is feeling well this morn ing. She continues to have lower left-sided abdominal pain. She is eating very little. C. difficile toxin and rotavirus are negative. Physical therapy has recommended home with home care. Patient apparently developed sundowners during the night and pulled her IV out and was walking in the ramires. Patient states she has had continued diarrhea but according to nursing staff, stools are very soft. No watery stools. IV antibiotics will be changed to Zosyn. Anticipate possible discharge the next 24-48 hours. 06/26: Temperature max during the night was 100.2. Heart rate 63, blood pressure 153/75, pulse ox 99% on room air. WBC 5.9, hemoglobin 11.4, platelet count 136. CK is down to 782. Sodium 135, potassium 3.8, creatinine 1.06, AST 60. Blood cultures are showing no growth at 48 hours and at 72 hours, urine culture finalized with no growth. The patient states she continues to have abdominal pain and does not feel that she is any better. Diet will be reduced to 4 liquids only. Abdominal x-ray has been ordered which reveals nonspecific abdomen. Occasional air-fluid levels May be on the basis of ileus or enteritis. Right basilar consolidation correlate for atelectasis versus infiltrate. Incentive spirometry added. 06/27: Normal viruses come back negative. CPK is now at 424. Patient complains of left lower quadrant soreness and diffuse tenderness. She denies any shortn ess of breath. Abdominal pain appears to be better so we will advance diet to a low fiber. Tremors are controlled. Clonazepam at bedtime will be decreased to 0.5 mg. Patient has been afebrile now for 24 hours. Anticipate possible discharge by tomorrow. 06/28: Patient is eating about 25% of her meals. She is only ambulating in her room and there is concern that she is somewhat unsteady and has increased fatigue. She complains of feeling nauseated and does not have much appetite. She is occasionally drinking her insurer. She did have one diarrhea stool this morning. Since from a tree has been added. Stool for occult blood was negative. Temperature max 100.2, pulse 68, blood pressure 130/71, pulse ox 97% on room air. CK is 207, AST 67, AST 60, sodium 135 and potassium 3.3. Potass ium has been replaced. Patient's son and his Arrived and discussed discharge planning with them. We will plan to discuss with the patient's daughter and determine if patient would be best off going to subacute rehab. We will ask case management to reassess in the morning with plan for discharge home or to rehab tomorrow. 8/ vision examined bedside appears to be sleepy. Apparently initiated on 0.5 mg at daytime by neurology for essential tremor. Since patient is drowsy. The morning dose of Klonopin. Decreased the dose of Klonopin to 0.5 mg at nighttime. PT evaluation today suggest the need of subacute rehab. lead worker of housekeeping and laundry and oil field caser consulted to evaluate for rehab placement. Vitals assessed with a temp of 99.8 pulse 64 blood pressure 173/86. Creatinine stable at 0.79. We'll give additional dose of losartan 50 mg now and increase morning dose of losartan 200 mg by mouth daily Objective - Vital Signs Vital signs: Vital Signs Temp 99.8 F H 06/29/19 07:05 Pulse 58 L 06/29/19 11:14 Resp 20 06/29/19 07:05 BP 172/78 06/29/19 11:14 Pulse Ox 95 06/29/19 07:05 Intake & Output 06/28/19 06/29/19 06/29/19 18:59 06:59 18:59 Intake Total 1050 Balance 1050 Intake: Intake, IV Titration 750 Amount Sodium Chloride 0.9% 1, 750 000 ml @ 75 mls/hr IV . [id number] [facility] Rx#:[id number] Oral 300 Other: Voiding Method Toilet # Voids 10 1 1 # Bowel Movements 1 - Exam Review of Systems Constitutional: Denies chills, Reports fatigue, no fever, Reports lethargy, Reports poor appetite, Reports weakness increased drowsiness Ears, nose, mouth and throat: Denies dysphagia, Denies mouth pain, Denies vertigo Cardiovascular: Denies lightheadedness, Denies chest pain, Denies leg edema, Denies syncope Respiratory: Denies cough, Denies cough with sputum, Denies dyspnea, Denies excessive sputum, Denies hemoptysis, Denies home oxygen, Denies wheezing Gastrointestinal: Improved abdominal pain, denies diarrhea, Reports loss of appetite, Denies nausea, Denies vomiting Genitourinary: Denies dysuria, Denies hematuria, Denies urgency, Denies urinary frequency Musculoskeletal: Reports gait dysfunction, Reports muscle weakness, Denies myalgias Integumentary: Denies pruritus, Denies rash, Denies wounds Neurological: Reports change in mentation, Reports confusion, Reports gait dysfunction, Reports tremors, Reports vertigo, Denies aphasia, Denies numbness, Denies seizures, Denies weakness Psychiatric: Denies anxiety, Denies depression Endocrine: Denies fatigue, Denies weight change Gen: This is a 68-year-old female. She is resting in a recliner and appears to be comfortable. Tremor is present mild. Son is at bedside. HEENT: Head is atraumatic, normocephalic. Pupils equal, round. Sclerae is anicteric. NECK: Supple. No JVD. No lymphadenopathy. No thyromegaly. LUNGS: Clear to auscultation. No wheezes or rhonchi. No intercostal retractions. HEART: Regular rate and rhythm. Systolic murmur. ABDOMEN: Soft. Bowel sounds are present. No masses. Abdominal tenderness is improved EXTREMITIES: No pedal edema. No calf tenderness. Dorsalis pedis +2 bilaterally. NEUROLOGICAL: Patient is awake, alert and oriented x2-3. Cranial nerves 2 through 12 are grossly intact. Noted short-term memory deficits. - Labs CBC & Chem 7: 06/27/19 06:31 06/29/19 10:21 Labs: Abnormal Lab Results - Last 24 Hours (Table) 06/29/19 Range/Units 10:21 BUN 5 L (7-17) mg/dL Microbiology - Last 24 Hours (Table) 06/22/19 23:00 Blood Culture - Final Blood No Growth after 144 hours 06/23/19 16:47 Blood Culture - Preliminary Blood No Growth after 120 hours Assessment and Plan Plan: 1. Sepsis secondary to colitis. Flagyl discontinued and started Zosyn. Stool for rotavirus negative, stool for C. difficile toxin negative, CT of the abdomen and pelvis as above. Continue Questran, lactobacillus. Advanced to low fiber diet 2. Metabolic encephalopathy secondary to dehydration. Improved hold IV fluids 3. Benign essential tremor exacerbated by illness and stress. Consult with neurology appreciated. Clonazepam reduced to 0.5 mg once daily at bedtime 4. Rhabdomyolysis secondary to tremors/shivers. Continue IV fluids. Recheck CK level. Hold atorvastatin. 5. History of coronary artery disease with five-vessel CABG. Continue losartan, Lopressor. 6. Hypertension. Continue losartan 50 mg daily, Lopressor 25 mg twice daily. 7. Hyperlipidemia. Hold Lipitor. 8. Hypothyroidism. Continue levothyroxine 75 g daily. 9. Alzheimer dementia Continue Aricept 10 mg at bedtime. 10. Recurrent depression and generalized anxiety disorder. Continue Lexapro 20 mg twice daily, clonazepam 0.5 mg daily at bedtime Wellbutrin 300 mg daily. 11. Normal pressure hydrocephalus status post STRAIGHTEDGE WORKER shunt at [facility] in March 2019, stable. No abnormality seen on CAT scan. 12. DVT prophylaxis. Lovenox subcu. 13. Gastroesophageal reflux disease, GI prophylaxis. Pepcid 20 g twice daily. 14. Rectal prolapse, stable. Patient follow-up with general surgery if this becomes problematic. Discharge plan: Patient would benefit from subacute rehab. lead worker of housekeeping and laundry and oil field caser consulted.
[2019-06-29] MEDS: DONEPEZIL 10 MG TAB PO SCH (20:33)
[2019-06-30] MEDS: LEVOTHYROXINE 75 MCG TAB PO SCH (06:16)
[2019-06-30 07:39] VITALS: RESP 16; TEMP 98.8
[2019-06-30 07:45] LABS: Basophils % (A) 0 %; Eosinophils # (A) 0.3 k/uL (0-0.7); Eosinophils % (A) 4 %; HCT 40.4 % (34.0-46.0); HGB 13.6 gm/dL (11.4-16.0); Lymphocytes % (A) 14 %; MCH 30.7 pg (25.0-35.0); MCHC 33.7 g/dL (31.0-37.0); MCV 91.1 fL (80.0-100.0); Mean Platelet Volume 7.3; Monocytes # (A) 0.4 k/uL (0-1.0); Monocytes % (A) 5 %; Neutrophils # (A) 5.3 k/uL (1.3-7.7); Neutrophils % (A) 75 %; Platelet Count 248 k/uL (150-450); RBC 4.44 m/uL (3.80-5.40); RDW 14.2 % (11.5-15.5); WBC 7.1 k/uL (3.8-10.6)
[2019-06-30] MEDS ORDERED: LOSARTAN 50 MG TAB PO SCH (09:00)
[2019-06-30] MEDS: METOPROLOL TARTRATE 25 MG TAB PO SCH (09:08)
[2019-06-30] MEDS: buPROPion XL 300 MG TAB.ER.24H PO SCH (09:08)
[2019-06-30] MEDS: LACTOBACILLUS ACIDOPH & BULGAR 1 EACH PACKET PO SCH (09:08)
[2019-06-30] MEDS: FAMOTIDINE 20 MG TAB PO SCH (09:08)
[2019-06-30] MEDS: busPIRone HCl 10 MG TAB PO SCH ×2 (09:08→16:06)
[2019-06-30] MEDS: ESCITALOPRAM 20 MG TAB PO SCH (09:09)
[2019-06-30] MEDS: ENOXAPARIN 40 MG/0.4 ML SYRINGE SQ SCH (09:09)
[2019-06-30] MEDS: PIPERACILLIN-TAZOBACTAM 3.375 GM in SODIUM CHLORIDE 0.9% 100 ML IVPB SCH ×2 (09:10→15:54)
--- NOTE | 2019-06-30 12:22 | P.DS ---
Providers Date of admission: 06/23/19 00:56 Attending physician: Cielo Elizabeth Consults: 06/23/19 11:19 Consult Physician Routine Consulting Provider: Tabitha Duffy Consult Reason/Comments: tremors, elevated CK Do you want consulting provider notified?: Yes [facility] Course: This is a 68-year-old female patient of Dr. Heriberto Preciado and Dr. Dickinson with past medical history of myocardial infarction with CABG 5 vessels 15 years ago, hypothyroidism, hypertension, hyperlipidemia, Alzheimer's dementia, normal pressure hydrocephalus status post ventriculoperitoneal shunt placement 04/22/2019 at [facility] with Dr. Duarte, recurrent depression. Patient states she has tremors and had this worked up by Dr. Mcgraw. These become significantly worse and causing tremors and her face as well a significant shaking to her hands. She states she has been feeling funny for the past 1-2 weeks. She denies any recent fall or if she denies any headache, no blurred vision. She is complaining of abdominal pain to the sides and metal. She also complains of fever and lightheadedness. Patient complains of runny watery stool that started yesterday since her first trip to the emergency center. She states she has had 4 stools since then and denies any blood in her stools. She denies any history of C. difficile colitis. Daughter gives history that patient is been under a lot of stress and that the patient's is actively dying in a facility. Daughter states temperature at home was 102.8. Patient presented to [facility] emergency center for evaluation. Patient initially presented at 11:47 in the morning by EMS for confusion for 3 days, tremors and burning with urination. Temperature was 99.6, vital signs were stable, white count was 10.9, white count 145, creatinine 1.09, blood sugar 133. Troponin was negative. Urinalysis negative for infection. There was a small amount of blood. Urine drug screen was negative. CAT scan of the brain showed no acute intracranial abnormality. Stable positioning of the right [employer] C[employer] WORKER shunt catheter. No hydrocephalus.. Chest x-ray shows no acute cardiopulmonary process. The patient was stable while in the emergency center and she was discharged home with plan for daughter to stay with her the next couple days and make a follow- up appointment with neurosurgeon at [facility]. The patient returned at 10 PM due to severe weakness, persistent shaking, unable to eat or drink anything, unable to stand or ambulate, fevers and abdominal pain. On this visit, patient was found have a fever 102.6, heart rate 111, blood pressure 138/62 and pulse ox 99%. EKG was sinus rhythm with T-wave elevation in aVR. Repeat white count was at 8.8, sodium 133, lactic acid 1, CK 1965, TSH 2.190. Troponin 0.030. Influenza testing negative. Lipase 153. She was given 3 L of IV fluid total. Patient was started on IV fluids, Tylenol and ibuprofen [facility] Ultrasound of gallbladder showed mild dilatation of common duct is likely patient's age. CT abdomen and pelvis with contrast reveals colitis. EEG was normal. 06/24: Patient has been seen by Dr. Duffy for diffuse tremor possibly benign essential tremor exacerbated by acute illness and emotional stress. Other considerations include neuroleptic malignant syndrome with fever and elevated CK and ventriculitis if needed clonazepam could be increased to control tremor avoiding sedation and would recommend outpatient adjustments. He recommends holding dopamine agonist drugs and okay to continue Aricept. Repeat lab work shows a normal CBC except for platelet count of 131. Sodium 135, potassium 3.0, chloride 108, CO2 17, BUN 11 and creatinine 0.94. AST 72. Blood sugars 100- 108. Calcium 8.1. Repeat CK 1914. Potassium has been replaced. Temperature max 100.9 this morning. She did have a temperature of 101.8 at 3 PM yesterday. This morning patient broke out and severe diaphoresis and after that her tremors have been much improved. She continues to have mid abdominal pain and decreased appetite. She is passing gas. She also states she continues to have diarrhea and specimen is to be sent today for C. difficile colitis. Today she has only had 1 stool this far. She did notice a little bit of blood in her stool this morning. She has been ambulating in the unit without difficulty. The patient also found to have a rectal prolapse that is currently in place. Daughter has been informed of this continues to be a problem that surgical follow-up should be done but no need at this point. Diet changed to lactose-free. 06/25: Temperature max last 24 hours is 100.2, heart rate 59, blood pressure 167/77, pulse ox 90% on room air. The patient's tremor apparently worsened last evening. Dr. Duffy has added clonazepam 0.5 mg in the morning and continue the 1 mg at bedtime. Patient to be monitored for sedation and confusion, delirium. Repeat CK is 1398, sodium 136, potassium 3.1, chloride 107, CO2 20. AST 78. Potassium will be replaced. Patient states that she is feeling well this morning. She continues to have lower left-sided abdominal pain. She is eating very little. C. difficile toxin and rotavirus are negative. Physical therapy has recommended home with home care. Patient apparently developed sundowners during the night and pulled her IV out and was walking in the ramires. Patient states she has had continued diarrhea but according to nursing staff, stools are very soft. No watery stools. IV antibiotics will be changed to Zosyn. Anticipate possible discharge the next 24-48 hours. 06/26: Temperature max during the night was 100.2. Heart rate 63, blood pressure 153/75, pulse ox 99% on room air. WBC 5.9, hemoglobin 11.4, platelet count 136. CK is down to 782. Sodium 135, potassium 3.8, creatinine 1.06, AST 60. Blood cultures are showing no growth at 48 hours and at 72 hours, urine culture finalized with no growth. The patient states she continues to have abdominal pain and does not feel that she is any better. Diet will be reduced to 4 liquids only. Abdominal x-ray has been ordered which reveals nonspecific abdomen. Occasional air-fluid levels May be on the basis of ileus or enteritis. Right basilar consolidation correlate for atelectasis versus infiltrate. Incentive spirometry added. 06/27: Normal viruses come back negative. CPK is now at 424. Patient complains of left lower quadrant soreness and diffuse tenderness. She denies any shortness of breath. Abdominal pain appears to be better so we will advance diet to a low fiber. Tremors are controlled. Clonazepam at bedtime will be decreased to 0.5 mg. Patient has been afebrile now for 24 hours. Anticipate possible discharge by tomorrow. 06/28: Patient is eating about 25% of her meals. She is only ambulating in her room and there is concern that she is somewhat unsteady and has increased fatigue. She complains of feeling nauseated and does not have much appetite. She is occasionally drinking her insurer. She did have one diarrhea stool this morning. Since from a tree has been added. Stool for occult blood was negative. Temperature max 100.2, pulse 68, blood pressure 130/71, pulse ox 97% on room air. CK is 207, AST 67, AST 60, sodium 135 and potassium 3.3. Potassium has been replaced. Patient's son and his Arrived and discussed discharge planning with them. We will plan to discuss with the patient's daughter and determine if patient would be best off going to subacute rehab. We will ask case management to reassess in the morning with plan for discharge home or to rehab tomorrow. 06/29 vision examined bedside appears to be sleepy. Apparently initiated on 0.5 mg at daytime by neurology for essential tremor. Since patient is drowsy. The morning dose of Klonopin. Decreased the dose of Klonopin to 0.5 mg at nighttime. PT evaluation today suggest the need of subacute rehab. dry transfer worker and medical case worker consulted to evaluate for rehab placement. Vitals assessed with a temp of 99.8 pulse 64 blood pressure 173/86. Creatinine stable at 0.79. We'll give additional dose of losartan 50 mg now and increase morning dose of losartan 200 mg by mouth daily 06/30 Patient doing well today, slightly sor ein the abd, diarrhoea improved. Continue antibiotics for a total of 10 days. no episodes of fever or BRBPR/ Will reduce klonipin 0.5 mg at bedtime as needed for anxiety. WBC is normal. stable for d/c to [facility] today DIscahrge diagnosis 1. Sepsis secondary to colitis. vanced to low fiber diet 2. Metabolic encephalopathy secondary to dehydration 3. Benign essential tremor exacerbated by illness and stress 4. Rhabdomyolysis secondary to tremors/shivers. 5. History of coronary artery disease with five-vessel CABG. 6. Hypertension. 7. Hyperlipidemia 8. Hypothyroidism. 9. Alzheimer dementia 10. Recurrent depression and generalized anxiety disorder. 11. Normal pressure hydrocephalus status post [employer] C[employer] WORKER shunt at [facility] in March 2019, stable. No abnormality seen on CAT scan. 12. DVT prophylaxis. D?C to [facility] Patient Condition at Discharge: Good Plan - Discharge Summary Discharge Rx Participant: No New Discharge Prescriptions: New Loperamide [Imodium] 2 mg PO QID PRN #12 cap PRN Reason: Diarrhea Cholestyramine (with Sugar) [Questran Packet] 4 gm PO BID@1000,1800 packet Amoxic-Pot Clav 500-125 mg [Augmentin 500-125 mg] 1 tab PO Q12HR #6 tab clonazePAM [KlonoPIN] 0.5 mg PO HS PRN 3 Days #3 tablet PRN Reason: Anxiety Continue buPROPion HCL [Wellbutrin XL] 300 mg PO DAILY Losartan Potassium [Cozaar] 50 mg PO DAILY Levothyroxine Sodium [Synthroid] 75 mcg PO DAILY Donepezil [Aricept] 10 mg PO HS Atorvastatin [Lipitor] 80 mg PO HS busPIRone HCL 15 mg PO TID Escitalopram [Lexapro] 20 mg PO BID Famotidine [Pepcid] 20 mg PO BID Metoprolol Tartrate [Lopressor] 25 mg PO BID Discontinued clonazePAM [KlonoPIN] 1 mg PO HS Discharge Medication List Atorvastatin [Lipitor] 80 mg PO HS 02/26/19 [History] Donepezil [Aricept] 10 mg PO HS 02/26/19 [History] Escitalopram [Lexapro] 20 mg PO BID 02/26/19 [History] Levothyroxine Sodium [Synthroid] 75 mcg PO DAILY 02/26/19 [History] Losartan Potassium [Cozaar] 50 mg PO DAILY 02/26/19 [History] buPROPion HCL [Wellbutrin XL] 300 mg PO DAILY 02/26/19 [History] busPIRone HCL 15 mg PO TID 02/26/19 [History] Famotidine [Pepcid] 20 mg PO BID 06/22/19 [History] Metoprolol Tartrate [Lopressor] 25 mg PO BID 06/22/19 [History] Amoxic-Pot Clav 500-125 mg [Augmentin 500-125 mg] 1 tab PO Q12HR #6 tab 06/30/19 [Rx] Cholestyramine (with Sugar) [Questran Packet] 4 gm PO BID@1000,1800 packet 06/30/19 [Rx] Loperamide [Imodium] 2 mg PO QID PRN #12 cap 06/30/19 [Rx] clonazePAM [KlonoPIN] 0.5 mg PO HS PRN 3 Days #3 tablet 06/30/19 [Rx] Follow up Appointment(s)/Referral(s): [facility] [NON-STAFF] - Tomás Preciado MD [Primary Care Provider] - 1 Week Discharge Disposition: TRANSFER TO SNF/ECF
[2019-06-30] MEDS: CHOLESTYRAMINE (WITH SUGAR) 4 GM PACKET PO SCH ×2 (12:46→18:44)
[2019-06-30 14:20] VITALS: BP 134/71; PULSE 59
== END 2019-06-30 19:19 | DRG 871 ==
LOC: EC 22:08 → 4MS4W 06-23 00:56 → 4SSUR 06-23 06:25
PROVIDERS: ADMIT Internal Medicine; ATTEND Internal Medicine
DX: A41.9 Sepsis, unspecified organism (principal); G93.41 Metabolic encephalopathy; M62.82 Rhabdomyolysis; G91.2 (Idiopathic) normal pressure hydrocephalus; F33.9 Major depressive disorder, recurrent, unspecified; F05 Delirium due to known physiological condition; E86.0 Dehydration; G30.9 Alzheimer's disease, unspecified; F02.80 Dementia in other diseases classified elsewhere, unspecified severity, without behavioral disturbance, psychotic disturbance, mood disturbance, and anxiety; K52.9 Noninfective gastroenteritis and colitis, unspecified; G25.0 Essential tremor; K62.3 Rectal prolapse; F41.1 Generalized anxiety disorder; E78.5 Hyperlipidemia, unspecified; I25.10 Atherosclerotic heart disease of native coronary artery without angina pectoris; I10 Essential (primary) hypertension; E03.9 Hypothyroidism, unspecified; G47.30 Sleep apnea, unspecified; K21.9 Gastro-esophageal reflux disease without esophagitis; R30.9 Painful micturition, unspecified; F43.9 Reaction to severe stress, unspecified; I25.2 Old myocardial infarction; Z79.890 Hormone replacement therapy; Z79.899 Other long term (current) drug therapy; Z99.89 Dependence on other enabling machines and devices; Z95.1 Presence of aortocoronary bypass graft; Z90.710 Acquired absence of both cervix and uterus; Z98.2 Presence of cerebrospinal fluid drainage device; Z88.5 Allergy status to narcotic agent; Z82.49 Family history of ischemic heart disease and other diseases of the circulatory system; Z80.0 Family history of malignant neoplasm of digestive organs; Z82.69 Family history of other diseases of the musculoskeletal system and connective tissue
CPT/HCPCS: 36415; 70450; 71046; 74018; 74019; 74177; 76705; 80048; 80053; 80306; 81001; 82272; 82550; 83605; 83690; 83735; 83880; 84100; 84132; 84443; 84484; 85025; 85027; 85610; 85730; 87040; 87045; 87046; 87086; 87324; 87425; 87502; 87798; 93005; 95816; 96360; 96361; 99285

== ENCOUNTER → 2022-02-16 | Outpatient (CLI) | payer MEDICARE ==
--- NOTE | 2022-02-16 20:08 | CT ---
EXAMINATION TYPE: CT lumbar spine wo con CT DLP: 982 mGycm, Automated exposure control for dose reduction was used. DATE OF EXAM: 02/16/2022 11:42 AM COMPARISON: CT abdomen pelvis 06/23/2019. CLINICAL INDICATION:Female, 71 years old with history of M48.062 Spinal stenosis, lumbar region with neurog, Spinal stenosis. TECHNIQUE: Multiple axial images were obtained from the midportion of T11 through the sacroiliac kelli nts. Soft tissue and bone windows in coronal and sagittal planes were obtained and reviewed. 3-D ref ormats of the bones were created on a separate workstation and submitted for review. FINDINGS: Alignment: There are 5 lumbar type vertebral bodies with an S-shaped scoliosis apex dextroscoliosis L 1 and levoscoliosis apex at L4. There is grade 1 anterolisthesis of L5 on S1 without pars interarticu mateo defects. Bone: No evidence of fracture is identified. Moderate to severe facet joint arthropathy throughout t he lower lumbar spine. Discs: T12-L1: No spinal canal or neural foraminal stenosis is identified. Bilateral facet joint arthropathy and disc bulging result in moderate left and mild right neural foraminal stenosis. L1-L2: No spinal canal or neural foraminal stenosis is identified. Bilateral facet joint arthropathy and disc bulging result in moderate left and mild right neural foraminal stenosis. L2-L3: Disk bulge in combination with facet joint arthropathy result in moderate spinal canal stenosi s. Bilateral facet joint arthropathy and disc bulging result in moderate right and mild left neural f oraminal stenosis. L3-L4: Disk bulge in combination with facet joint arthropathy result in severe spinal canal stenosis. Bilateral facet joint arthropathy and disc bulging result in moderate bilateral neural foraminal udncan nosis. L4-L5: Disk bulge in combination with facet joint arthropathy result in moderate spinal canal stenos is. Bilateral facet joint arthropathy and disc bulging result in mild bilateral neural foraminal sten osis. L5-S1: Disc uncovering with narrowing of the terminal spinal canal. Bilateral facet joint arthropathy and disc bulging result in mild bilateral neural foraminal stenosis. 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 IMPRESSION: 1. No evidence of fracture of the lumbar spine. 2. Severe multilevel disc degeneration changes with multilevel disc bulging resulting in varying degr ees of spinal canal stenosis. Spinal canal stenosis worse at L3-L4 with severe and L2-L3 and L4-5 wit h moderate stenosis. 3. Varying degrees of neural foraminal stenosis throughout the spine secondary to facet joint arthrop athy changes and degeneration changes of the spine. Worse at bilateral L2-L3 and L3-L4 and left T12-L 1 and L1-L2 with moderate neural foraminal stenosis.
== END | disposition home or self-care (01) ==
LOC: RADCTMAIN 11:24
PROVIDERS: ATTEND Physical Medicine & Rehabilitation
DX: M51.36 Other intervertebral disc degeneration, lumbar region (principal); M48.061 Spinal stenosis, lumbar region without neurogenic claudication; M47.816 Spondylosis without myelopathy or radiculopathy, lumbar region
CPT/HCPCS: 72131